=== PATIENT | male | born 1970 | race Caucasian/White ===

== ENCOUNTER 2020-01-23 14:32 | Inpatient (IN) | payer MEDICARE, MEDICAID ==
[~2020-01-23] VITALS: Ht 167.6 cm; Wt 68.9 kg
[2020-01-23] MEDS ORDERED: Lidocaine 1% Plain 30 ml INJ STA (14:44)
[2020-01-23] MEDS ORDERED: Heparin1,000 units/500ml Premix(Conc:2 units/ml) IV STA (14:44)
--- NOTE | 2020-01-23 14:51 | Emergency Room Report ---
History of Present Illness General Chief Complaint: General Complaint Source: Patient, EMS Present Illness HPI Patient was sent in to have a PICC line inserted. He states this is for antibiotics (although he is uncertain which or what is being treated). Review of records reveal that he has had bacteremia. Due to the skipped dialysis and h /o anemia, these labs will be checked. Also a CXR, R forearm and R hip and pelvis xrays will be performed. Percocet is given for pain. EKG without injury or peaked T waves. CXR, Vas cath, whithout pulmonary edema. Pelvic fx, hip hardware (discussed with radiologist). Wrist swelling with questionable healed/healing fx. Labs with hyperkalemia. Critical anemia ( though slightly higher than most recent value at [facility]). PICC line inserted with discussions with radiologist. Patient treated for hyperkalemia. Blood ordered. Transfusion begun after informed consent. Tolerated well. Patient improved but complicated and needing dialysis and orthopedic evaluation and possible repeat transfusions. 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: No Patient History Past Medical History: see triage record, old chart reviewed Past Surgical History: other - Vas-Cath right chest, R hip fx Social History: Reports: smoking Social History Narrative assisted facility Reviewed Nursing Documentation: PMH: Agreed; PSxH: Agreed Nursing Documentation-PMH Past Medical History: No History, Except For Hx Hypertension: Yes - DISPLACED ULNA FRACTURE Review of Systems All Other Systems: negative except mentioned in HPI Physical Exam Vital Signs Date Time Temp Pulse Resp B/P (MAP) Pulse Ox O2 Delivery O2 Flow Rate FiO2 01/23/20 14:37 98.2 84 16 120/71 (87) 93 Room Air Sp02 EP Interpretation: reviewed, abnormal General Appearance: no apparent distress, alert, non-toxic, thin, Chronically Ill Head: normocephalic Eyes: bilateral eye normal inspection, bilateral eye PERRL, bilateral eye EOMI ENT: moist mucus membranes Neck: full range of motion, supple Respiratory: chest non-tender, lungs clear Cardiovascular #1: regular rate, rhythm Cardiovascular #2: 2+ radial (R) Gastrointestinal: normal inspection, normal bowel sounds, non tender, scaphoid Genitourinary: no CVA tenderness Musculoskeletal: swelling, tenderness - R hip and pelvis area, other - L olecronon bursitis, no erythema Neurologic: alert, grossly normal Psychiatric: mood/affect normal Skin: warm/dry, other - excoriations forearms and upper back Procedures Critical Care Time Critical Care Time Total Critical Care Time: 60 min bedside evaluation and treatment excludes procedures (EKG). Reason for critical care: hyperkalemia, IV access, critical anemia, pelvic fx Possible complications: hypotension, hypertension, OK, shock, arrhythmias, metabolic acidosis, end organ damage, respiratory failure. Interventions: treatment of hyperkalemia, blood transfusion, discussions with radiologist Course: Patient presented for PICC line insertion. Missed dialysis. Also evaluation of recent fractures. Analgesia. [place] for PICC and blood draws with patient - finally agreed. Hyperkalemia treated. Discussion with RT. Discussion with blood bank and informed consent obtained with patient. Repeat evaluations during blood transfusion. Multiple discussions with radiologist regarding PICC and pelvic fx. Discussed with admitting MD Consultations: nursing staff, EMS, radiologist, blood bank, RT, admitting MD, review of records and labs Performed by: Dr. Marinelli Tolerated well condition = serious Medical Decision Making Diagnostic Impression: Primary Impression: Hyperkalemia Additional Impressions: Anemia Qualified Codes: D64.9 - Anemia, unspecified ESRD (end stage renal disease) on dialysis Fracture, pelvis closed Qualified Codes: S32.89XK - Fracture of other parts of pelvis, subsequent encounter for fracture with nonunion Schizophrenia Qualified Codes: F20.9 - Schizophrenia, unspecified Wrist fracture, right Qualified Codes: S62.101D - Fracture of unspecified carpal bone, right wrist, subsequent encounter for fracture with routine healing H/O bacteremia ER Course Patient sent for PICC line insertion. As he is not had dialysis for 3 days EKG and labs will be obtained. Also he is requesting x-rays of his forearm and of his hip and something for pain. K elevated and treated. H/H slightly better than at [facility]. Still low and transfusion ordered. Laboratory Tests Test 01/23/20 17:21 White Blood Count 8.6 K/UL (4.8-10.8) Red Blood Count 2.21 M/UL (4.70-6.10) L Hemoglobin 6.8 G/DL (14.2-18.0) *L Hematocrit 21.3 % (42.0-52.0) L Mean Corpuscular Volume 96 FL (80-99) Mean Corpuscular Hemoglobin 31.0 PG (27.0-31.0) Mean Corpuscular Hemoglobin Concent 32.2 G/DL (32.0-36.0) Red Cell Distribution Width 17.7 % (11.6-14.8) H Platelet Count 251 K/UL (150-450) Mean Platelet Volume 5.4 FL (6.5-10.1) L Neutrophils (%) (Auto) % (45.0-75.0) Lymphocytes (%) (Auto) % (20.0-45.0) Monocytes (%) (Auto) % (1.0-10.0) Eosinophils (%) (Auto) % (0.0-3.0) Basophils (%) (Auto) % (0.0-2.0) Differential Total Cells Counted 100 Neutrophils % (Manual) 74 % (45-75) Lymphocytes % (Manual) 17 % (20-45) L Monocytes % (Manual) 2 % (1-10) Eosinophils % (Manual) 6 % (0-3) H Basophils % (Manual) 1 % (0-2) Band Neutrophils 0 % (0-8) Nucleated Red Blood Cells 1 /100 WBC Platelet Estimate Adequate Platelet Morphology Normal Polychromasia 1+ Anisocytosis 1+ Macrocytosis 1+ Sodium Level 141 MMOL/L (136-145) Potassium Level 6.0 MMOL/L (3.5-5.1) *H Chloride Level 108 MMOL/L (98-107) H Carbon Dioxide Level 17 MMOL/L (21-32) L Anion Gap 16 mmol/L (5-15) H Blood Urea Nitrogen 105 mg/dL (7-18) H Creatinine 7.7 MG/DL (0.55-1.30) H Estimated Glomerular Filtration Rate 7.5 mL/min (>60) Glucose Level 96 MG/DL (74-106) Calcium Level 7.3 MG/DL (8.5-10.1) L Total Bilirubin 0.3 MG/DL (0.2-1.0) Aspartate Amino Transferase (AST) 14 U/L (15-37) L Alanine Aminotransferase (ALT) 11 U/L (12-78) L Alkaline Phosphatase 267 U/L (46-116) H Total Protein 7.3 G/DL (6.4-8.2) Albumin 1.6 G/DL (3.4-5.0) L Globulin 5.7 g/dL Albumin/Globulin Ratio 0.3 (1.0-2.7) L EKG Diagnostic Results Rate: normal Rhythm: NSR ST Segments: no acute changes Rhythm Strip Diag. Results EP Interpretation: yes Rhythm: NSR, no PVC's, no ectopy Chest X-Ray Diagnostic Results Chest X-Ray Diagnostic Results : Chest X-Ray Ordered: Yes # of Views/Limited/Complete: 1 View Indication: Other EP Interpretation: Yes Interpretation: no effusion, no pneumothorax, other - pulm HTN no pulmonary edema, Vas cath Impression: Other Electronically Signed by: Electronically signed by Jasmeet Marinelli MD Other X-Ray Diagnostic Results Other X-Ray Diagnostic Results #1: X-Ray ordered: R forearm # of Views/Limited Vs Complete: 2 View Indication: Swelling EP Interpretation: Yes Interpretation: no dislocation, other - STS and old fx Impression: Other Electronically Signed by: Electronically signed by Jasmeet Marinelli MD Other X-Ray Diagnostic Results #2: X-Ray ordered: R hip and pelvis # of Views/Limited Vs Complete: 3 View Indication: Pain EP Interpretation: Yes Interpretation: no soft tissue swelling, other Impression: Other Electronically Signed by: Electronically signed by Jasmeet Marinelli MD Last Vital Signs Date Time Temp Pulse Resp B/P (MAP) Pulse Ox O2 Delivery O2 Flow Rate FiO2 01/24/20 00:00 98.7 95 17 163/78 (106) 96 01/23/20 22:12 Room Air 01/23/20 21:20 21 Status: improved Disposition: ADMITTED INPATIENT Condition: Serious Jasmeet Marinelli MD Jan 23, 2020 14:51
[2020-01-23] MEDS ORDERED: oxyCODONE HCL/Acetaminophen 5/325mg ORAL ONE (15:00)
[2020-01-23] MEDS ORDERED: ACETAMINOPHEN325 M1 ORAL (15:23)
[2020-01-23] MEDS ORDERED: MOM30 ML ORAL (15:23)
[2020-01-23] MEDS ORDERED: DULCOLAX10 MG RC (15:23)
[2020-01-23] MEDS ORDERED: COLACE100 MG/10 ORAL (15:23)
[2020-01-23] MEDS ORDERED: FERROUS SULFAT325 M2 ORAL (15:23)
[2020-01-23] MEDS ORDERED: DIPHENHYDRAMINE25 M1 ORAL (15:23)
[2020-01-23] MEDS ORDERED: RENVELA800 MG ORAL (15:23)
[2020-01-23] MEDS ORDERED: SEROQUEL50 MG ORAL (15:23)
[2020-01-23] MEDS ORDERED: AMLODIPINE BESY10 MG ORAL (15:23)
[2020-01-23] MEDS ORDERED: METOPROLOL TAR100 M1 ORAL (15:23)
[2020-01-23] MEDS ORDERED: NEOSPORIN OINT30 GM TOPIC (15:23)
[2020-01-23] MEDS ORDERED: TRAMADOL HCL100 M2 ORAL (15:23)
[2020-01-23] MEDS ORDERED: OYSTER SHELL C1 EA13 PO (15:23)
[2020-01-23] MEDS ORDERED: ZINC50 M2 ORAL (15:23)
[2020-01-23] MEDS ORDERED: ARANESP100 MCG/0. SUBQ (15:23)
[2020-01-23] MEDS ORDERED: FUROSEMIDE40 MG/5 ML ORAL (15:23)
[2020-01-23 15:24] VITALS: BP 116/81
[2020-01-23] MEDS ORDERED: Lidocaine 1% Plain 30 ml INJ PRN (15:24)
[2020-01-23] MEDS ORDERED: Heparin1,000 units/500ml Premix(Conc:2 units/ml) IV PRN (15:24)
--- NOTE | 2020-01-23 17:02 | Brief Operative Note ---
Immediate Post Operative Note Operative Note Pre-op Diagnosis: needs IV abx Procedure: PICC (midline) R arm Post-op Diagnosis: same as pre-op Surgeon: Abbi Isaac Anesthesia: local Specimen: none Complications: none Condition: stable Fluids: none Implant(s) used?: No Jovan Isaac MD Jan 23, 2020 17:02
--- NOTE | 2020-01-23 17:02 | Pre-Procedure Note/Attestation ---
Pre-Procedure Note/Attestation Complete Prior to Procedure Planned Procedure: not applicable Procedure Narrative: PICC Indications for Procedure Pre-Operative Diagnosis: needs IV abx Attestation I attest that I discussed the nature of the procedure; its benefits; risks and complications; and alternatives (and the risks and benefits of such alternatives ), prior to the procedure, with the patient (or the patient's legal tax compliance representative). I attest that, if there was a reasonable possibility of needing a blood transfusion, the patient (or the patient's legal tax compliance representative) was given the [facility] standardized written summary, pursuant to the [place] Blood Safety Act ([place] Health and Safety Code # 1645, as amended). I attest that I re-evaluated the patient just prior to the surgery and that there has been no change in the patient's H&P, except as documented below: Jovan Eastman MD Jan 23, 2020 17:02
[2020-01-23 17:29] LABS: HEMATOCRIT 21.3 % (42.0-52.0); MEAN CORPUSCULAR VOLUME 96 FL (80-99); PLATELET COUNT 251 K/UL (150-450); RED BLOOD COUNT 2.21 M/UL (4.70-6.10); RED CELL DISTRIBUTION WIDTH 17.7 % (11.6-14.8); WHITE BLOOD COUNT 8.6 K/UL (4.8-10.8)
[2020-01-23 17:31] LABS: HEMOGLOBIN 6.8 G/DL (14.2-18.0)
[2020-01-23 17:43] LABS: ALANINE AMINOTRANSFERASE 11 U/L (12-78); ALBUMIN 1.6 G/DL (3.4-5.0); ALBUMIN/GLOBULIN RATIO 0.3 (1.0-2.7); ALKALINE PHOSPHATASE 267 U/L (46-116); ANION GAP 16 mmol/L (5-15); ASPARTATE AMINO TRANSFERASE 14 U/L (15-37); BILIRUBIN,TOTAL 0.3 MG/DL (0.2-1.0); BLOOD UREA NITROGEN 105 mg/dL (7-18); CALCIUM 7.3 MG/DL (8.5-10.1); CARBON DIOXIDE 17 MMOL/L (21-32); CHLORIDE 108 MMOL/L (98-107); CREATININE 7.7 MG/DL (0.55-1.30); SODIUM 141 MMOL/L (136-145)
[2020-01-23] MEDS ORDERED: Calcium Gluconate 1gm/10ml vial IVP ONE (18:00)
[2020-01-23] MEDS ORDERED: Sodium Bicarbonate 50ml Carp IV ONE (18:00)
[2020-01-23] MEDS ORDERED: Albuterol ud Inhalation HHN ONE (18:00)
[2020-01-23] MEDS ORDERED: Insulin Human Regular 100units/ml 3ml IV ONE (18:00)
[2020-01-23] MEDS ORDERED: Sodium Polystyrene Sulfonate 15gm Powder ORAL ONE (18:00)
--- NOTE | 2020-01-23 18:09 | Diagnostic Imaging Report ---
Indication: Trauma, pain Technique: 2 views of the right hip and one view of the pelvis Comparison: none Findings: There is a fracture of the right inferior and superior pubic ramus. This is displaced by over one bone width. There is also a fracture of the medial left pubic bone extending into the superior pubic ramus. There is a fracture deformity of the left inferior pubic ramus. There is considerable proliferative change, particularly about the left-sided pubic fractures and right inferior ramus fracture, so there may be a chronic component. Hardware is seen within the right femur. No definite hip fracture demonstrated. There are degenerative changes of the right hip joint. There are degenerative changes of the sacroiliac joints. Impression: Positive for bilateral pubic fracture, as described. Fracture lines appear acute and displaced, but presence of proliferative change may indicate a chronic component. Correlate with clinical history Right hip hardware noted. Findings discussed by phone with Dr. Marinelli at the time of interpretation
--- NOTE | 2020-01-23 18:11 | Diagnostic Imaging Report ---
Indications: Trauma, pain Technique: Two views of the right forearm Comparison: None Findings: No definite radial or ulnar fracture demonstrated. On the lateral view, there is questionably irregularity of the posterior proximal and distal carpal rows, although a definitive fracture is not identified. There appears to be some dorsal carpal soft tissue swelling. There is degenerative change of the intercarpal joint. Impression: No definite forearm fracture demonstrated. Cannot exclude carpal fracture. Consider dedicated wrist radiographs to better characterize Degenerative changes of the intercarpal joint. Findings discussed by phone with Dr. Marinelli at the time of interpretation
--- NOTE | 2020-01-23 18:29 | Diagnostic Imaging Report ---
Indications: Needs long-term IV access Technique: Case discussed preoperatively with Dr. Theo Powers, who indicated preference to proceed despite patient being dialysis dependent. Informed consent obtained prior to commencement of the procedure. Risks, including limited to hemorrhage, infection, venous injury discussed with the patient, questions answered and indicated his willingness to proceed. Ultrasound confirms patent compressible right brachial vein. Total sterile technique, including sterile probe cover and sterile gel, hat, mask, sterile gown, large sterile drape, and preparation with 2% chlorhexidine utilized. Local anesthesia with 1% lidocaine. Under real-time ultrasound guidance, puncture right great vein using 21-gauge needle, documented and archived, passage 0.018 guidewire under direct fluoroscopy, which with not pass through the right innominate vein, presumably due to the presence of a dialysis catheter. Placement of 4 [place] peel-away sheath. A MeinProspektpe catheter was used in attempt to manipulate a guidewire through the innominate vein. This was unsuccessful. It was elected to therefore placed a midline. 4 [place] Bard dual-lumen power PICC cut to 20 cm. It was inserted through the peel-away sheath. Peel-away sheath and guidewire removed. Catheter fixed to the skin. Both catheter ports aspirated and flushed. Patient tolerated procedure well, without immediate complication. Digital radiograph documents satisfactory catheter tip position, at the cavoatrial junction. Total fluoroscopy time 73.2 seconds. Total dose area product [id number] Total number of images: 1 Impression: Attempted placement of placement of right arm PICC under sonographic and fluoroscopic guidance, as described above. Note inability to pass a guidewire centrally. Therefore, catheter was cut short and is suitable for use as a midline
[2020-01-23 19:05] VITALS: BP 137/88
[2020-01-23] MEDS: Dyna-Hex 2% Top Sol 2oz TOPIC SCH (20:00)
[2020-01-23 20:50] VITALS: BP 153/71
[2020-01-23 21:05] VITALS: BP 141/69
[2020-01-23] MEDS ORDERED: traMADol 50mg tab ORAL PRN (22:30)
[2020-01-23] MEDS ORDERED: Milk of Magnesia 30ml Ud ORAL PRN (22:30)
[2020-01-23] MEDS ORDERED: Neosporin Oint 15gm TOPIC PRN (22:30)
[2020-01-23] MEDS ORDERED: Morphine Sulfate 2mg/ml Inj(IV/IM USE ONLY) IVP PRN (22:30)
[2020-01-24] VITALS: BP 163/78
[2020-01-24 04:00] VITALS: BP 170/70
[2020-01-24] MEDS: Morphine Sulfate 2mg/ml Inj(IV/IM USE ONLY) IVP PRN ×5 (04:39→21:59)
[2020-01-24 07:07] LABS: HEMATOCRIT 22.7 % (42.0-52.0); HEMOGLOBIN 7.2 G/DL (14.2-18.0); MEAN CORPUSCULAR VOLUME 96 FL (80-99); PLATELET COUNT 239 K/UL (150-450); RED BLOOD COUNT 2.35 M/UL (4.70-6.10); RED CELL DISTRIBUTION WIDTH 16.9 % (11.6-14.8); WHITE BLOOD COUNT 9.1 K/UL (4.8-10.8)
[2020-01-24 07:19] LABS: ANION GAP 18 mmol/L (5-15); BLOOD UREA NITROGEN 113 mg/dL (7-18); CALCIUM 7.2 MG/DL (8.5-10.1); CARBON DIOXIDE 16 MMOL/L (21-32); CHLORIDE 109 MMOL/L (98-107); CREATININE 8.3 MG/DL (0.55-1.30); SODIUM 143 MMOL/L (136-145)
[2020-01-24 07:21] LABS: POTASSIUM 6.4 MMOL/L (3.5-5.1)
[2020-01-24 08:00] VITALS: BP 165/80
[2020-01-24] MEDS: Zinc Sulfate 220mg ORAL SCH (09:00)
[2020-01-24] MEDS ORDERED: Docusate 100mg cap ORAL SCH (09:00)
[2020-01-24] MEDS ORDERED: Furosemide 80mg tab ORAL SCH (09:00)
[2020-01-24] MEDS: Metoprolol Tartrate 100mg tab ORAL SCH ×2 (09:00→21:10)
[2020-01-24 09:21] LABS: ALANINE AMINOTRANSFERASE 13 U/L (12-78); ALBUMIN 1.8 G/DL (3.4-5.0); ALKALINE PHOSPHATASE 278 U/L (46-116); ASPARTATE AMINO TRANSFERASE 17 U/L (15-37); BILIRUBIN,DIRECT 0.1 MG/DL (0.0-0.3); BILIRUBIN,TOTAL 0.3 MG/DL (0.2-1.0); PHOSPHORUS 9.6 MG/DL (2.5-4.9)
[2020-01-24] MEDS ORDERED: Sodium Polystyrene Sulfonate 15gm Powder ORAL SCH (11:15)
[2020-01-24] MEDS: Docusate 100mg cap ORAL SCH ×2 (11:26→17:23)
[2020-01-24 12:00] VITALS: BP 160/59
[2020-01-24] MEDS ORDERED: LORazepam 1mg tab ORAL PRN (14:23)
--- NOTE | 2020-01-24 14:23 | Consultation ---
Consult Note Consult Note I am asked to evaluate the patient at the request of Dr. Theo Powers for dialysis management and hyperkalemia. Patient seen in room 204. Patient is a poor historian. Patient presented with severe anemia. Emergency room note: Patient was sent in to have a PICC line inserted. He states this is for antibiotics (although he is uncertain which or what is being treated). Review of records reveal that he has had bacteremia. Due to the skipped dialysis and h /o anemia, these labs will be checked. Also a CXR, R forearm and R hip and pelvis xrays will be performed. Percocet is given for pain. EKG without injury or peaked T waves. CXR, Vas cath, whithout pulmonary edema. Pelvic fx, hip hardware (discussed with radiologist). Wrist swelling with questionable healed/healing fx. Labs with hyperkalemia. Critical anemia ( though slightly higher than most recent value at [facility]). PICC line inserted with discussions with radiologist. Patient treated for hyperkalemia. Blood ordered. Transfusion begun after informed consent. Tolerated well. Patient improved but complicated and needing dialysis and orthopedic evaluation and possible repeat transfusions. 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 Past Medical History: see triage record, old chart reviewed Past Surgical History: other - Vas-Cath right chest, R hip fx Social History: Reports: smoking Social History Narrative assisted facility Reviewed Nursing Documentation: PMH: Agreed; PSxH: Agreed DISPLACED ULNA FRACTURE Hypertension Patient interviewed poor historian Patient examined Vital Signs Date Time Temp Pulse Resp B/P (MAP) Pulse Ox O2 Delivery O2 Flow Rate FiO2 01/23/20 14:37 98.2 84 16 120/71 (87) 93 Room Air Sp02 EP Interpretation: reviewed, abnormal General Appearance: no apparent distress, alert, non-toxic, thin, Chronically Ill Head: normocephalic Eyes: bilateral eye normal inspection, bilateral eye PERRL, bilateral eye EOMI ENT: moist mucus membranes Neck: full range of motion, supple Respiratory: chest non-tender, lungs clear Cardiovascular #1: regular rate, rhythm Gastrointestinal: normal inspection, normal bowel sounds, non tender, scaphoid Genitourinary: no CVA tenderness Musculoskeletal: swelling, tenderness - R hip and pelvis area, other - L olecronon bursitis, no erythema Neurologic: alert, grossly normal Skin: warm/dry, other - excoriations forearms and upper back . Assessment/Plan End-stage renal disease on hemodialysis via chest permacath, patient missed dialysis Presents with severe anemia and hyperkalemia Status post transfusion for anemia Status post insertion of a PICC line History of hypertension History of psych disease Hemodialysis as soon as possible for hyperkalemia Adjust blood pressure medications Plus binders Continue to monitor her hemoglobin hematocrit and blood pressure Per orders Viktor Kang MD Jan 24, 2020 14:22
--- NOTE | 2020-01-24 14:36 | Consultation ---
History of Present Illness General Date patient seen: Jan 24, 2020 Chief Complaint: General Complaint Present Illness HPI 49 y/o M with hx of schizophrenia, ESRD on HD, HTN, smoker, pelvic fracture s/p hip hardware placement, anemia is sent from [place] to ED on 01/23/20 for placement of PICC line. Apparently patient needs IV antibiotics for an infection which his not clear at this point. Summary sheet of [facility] says bacteremia but not much more info is provided. Upon admission was noted to have hyperkalemia and severe anemia. Allergies: Coded Allergies: No Known Allergies (Unverified , 01/23/20) Medication History Scheduled Acetaminophen* (Acetaminophen 325MG Tablet*), 325 MG ORAL Q6HR, (Reported) Amlodipine Besylate* (Amlodipine Besylate*), 10 MG ORAL DAILY, (Reported) Darbepoetin Pineda in Polysorbat (Aranesp), 100 MCG SUBQ ONCE A WEEK, (Reported) Docusate Sodium (Docusate Sodium), 100 MG ORAL DAILY, (Reported) Furosemide (Furosemide), 80 MG ORAL DAILY, (Reported) Magnesium Hydroxide (Milk of Magnesia), 30 ML ORAL DAILY, (Reported) Metoprolol Tartrate* (Metoprolol Tartrate*), 100 MG ORAL EVERY 12 HOURS, ( Reported) Neomycin/Polymyxin/Bacitracin* (Triple Antibiotic Ointment*), 30 GM TOPIC DAILY, (Reported) Quetiapine Fumarate (Seroquel), 100 MG ORAL DAILY, (Reported) Sevelamer Carbonate (Renvela), 800 MG ORAL THREE TIMES A DAY, (Reported) Tramadol Hcl (Tramadol Hcl), 50 MG ORAL DAILY, (Reported) Scheduled PRN Diphenhydramine Hcl* (Diphenhydramine Hcl*), 50 MG ORAL Q6H PRN for Itching, ( Reported) Miscellaneous Medications Bisacodyl (Dulcolax), 10 MG RC, (Reported) Calcium Carbonate/Vitamin D3 (Oyster Shell Calcium +D Tablet), 1 EACH PO, ( Reported) Ferrous Sulfate (Ferrous Sulfate), 325 MG ORAL, (Reported) Zinc Amino Acid Chelate (Zinc), 50 MG ORAL, (Reported) Patient History Healthcare decision maker N Resuscitation status Advanced Directive on File Patient History Narrative Pmhx: as above Shx: Reports: smoking Fhx: non contributory Review of Systems All Other Systems: negative except mentioned in HPI Physical Exam Physical Exam Narrative General Appearance: no apparent distress, alert, non-toxic, thin, Chronically Ill Head: normocephalic Eyes: bilateral eye normal inspection, bilateral eye PERRL, bilateral eye EOMI ENT: moist mucus membranes Neck: full range of motion, supple Respiratory: chest non-tender, lungs clear Cardiovascular #1: regular rate, rhythm Cardiovascular #2: 2+ radial (R) Gastrointestinal: normal inspection, normal bowel sounds, non tender, scaphoid Genitourinary: no CVA tenderness Musculoskeletal: swelling, tenderness - R hip and pelvis area, other - L olecronon bursitis, no erythema Neurologic: alert, grossly normal Psychiatric: mood/affect normal Skin: warm/dry, other - excoriations forearms and upper back Last 24 Hour Vital Signs Date Time Temp Pulse Resp B/P (MAP) Pulse Ox O2 Delivery O2 Flow Rate FiO2 01/24/20 13:22 160/59 01/24/20 12:00 84 01/24/20 12:00 98.6 84 18 160/59 (92) 97 01/24/20 09:06 165/80 01/24/20 09:00 Room Air 01/24/20 09:00 83 165/80 01/24/20 09:00 Room Air 01/24/20 08:00 96.8 96 20 165/80 (108) 98 01/24/20 08:00 96 01/24/20 05:09 98.7 01/24/20 04:00 98.1 93 22 170/70 (103) 96 01/24/20 04:00 92 01/24/20 00:00 98.7 95 17 163/78 (106) 96 01/24/20 00:00 92 01/23/20 22:12 Room Air 01/23/20 22:12 94 01/23/20 21:20 98.6 82 18 141/69 100 Room Air 21 01/23/20 21:05 98.6 96 18 01/23/20 21:05 98.6 96 18 141/69 100 Room Air 21 01/23/20 20:50 98.2 96 20 153/71 99 Room Air 21 01/23/20 20:50 98.2 96 20 01/23/20 19:10 76 18 100 Room Air 21 72 18 98 01/23/20 19:05 98.4 82 20 137/88 98 Room Air 01/23/20 15:42 98.2 01/23/20 15:26 86 22 Room Air 01/23/20 15:24 98.2 86 22 116/81 98 Room Air 01/23/20 14:37 98.2 84 16 120/71 (87) 93 Room Air Intake and Output 01/23/20 01/24/20 19:00 07:00 Output Total 900 ml Balance -900 ml Output Urine Total 900 ml Laboratory Tests Test 01/23/20 17:21 01/24/20 05:55 01/24/20 05:57 White Blood Count 8.6 K/UL (4.8-10.8) 9.1 K/UL (4.8-10.8) Red Blood Count 2.21 M/UL (4.70-6.10) L 2.35 M/UL (4.70-6.10) L Hemoglobin 6.8 G/DL (14.2-18.0) *L 7.2 G/DL (14.2-18.0) L Hematocrit 21.3 % (42.0-52.0) L 22.7 % (42.0-52.0) L Mean Corpuscular Volume 96 FL (80-99) 96 FL (80-99) Mean Corpuscular Hemoglobin 31.0 PG (27.0-31.0) 30.5 PG (27.0-31.0) Mean Corpuscular Hemoglobin Concent 32.2 G/DL (32.0-36.0) 31.6 G/DL (32.0-36.0) L Red Cell Distribution Width 17.7 % (11.6-14.8) H 16.9 % (11.6-14.8) H Platelet Count 251 K/UL (150-450) 239 K/UL (150-450) Mean Platelet Volume 5.4 FL (6.5-10.1) L 5.5 FL (6.5-10.1) L Neutrophils (%) (Auto) % (45.0-75.0) % (45.0-75.0) Lymphocytes (%) (Auto) % (20.0-45.0) % (20.0-45.0) Monocytes (%) (Auto) % (1.0-10.0) % (1.0-10.0) Eosinophils (%) (Auto) % (0.0-3.0) % (0.0-3.0) Basophils (%) (Auto) % (0.0-2.0) % (0.0-2.0) Differential Total Cells Counted 100 100 Neutrophils % (Manual) 74 % (45-75) 81 % (45-75) H Lymphocytes % (Manual) 17 % (20-45) L 13 % (20-45) L Monocytes % (Manual) 2 % (1-10) 5 % (1-10) Eosinophils % (Manual) 6 % (0-3) H 1 % (0-3) Basophils % (Manual) 1 % (0-2) 0 % (0-2) Band Neutrophils 0 % (0-8) 0 % (0-8) Nucleated Red Blood Cells 1 /100 WBC Platelet Estimate Adequate Adequate Platelet Morphology Normal Normal Polychromasia 1+ Anisocytosis 1+ 1+ Macrocytosis 1+ Sodium Level 141 MMOL/L (136-145) 143 MMOL/L (136-145) Potassium Level 6.0 MMOL/L (3.5-5.1) *H 6.4 MMOL/L (3.5-5.1) *H Chloride Level 108 MMOL/L (98-107) H 109 MMOL/L (98-107) H Carbon Dioxide Level 17 MMOL/L (21-32) L 16 MMOL/L (21-32) L Anion Gap 16 mmol/L (5-15) H 18 mmol/L (5-15) H Blood Urea Nitrogen 105 mg/dL (7-18) H 113 mg/dL (7-18) H Creatinine 7.7 MG/DL (0.55-1.30) H 8.3 MG/DL (0.55-1.30) H Estimat Glomerular Filtration Rate 7.5 mL/min (>60) 6.9 mL/min (>60) Glucose Level 96 MG/DL (74-106) 106 MG/DL (74-106) Calcium Level 7.3 MG/DL (8.5-10.1) L 7.2 MG/DL (8.5-10.1) L Total Bilirubin 0.3 MG/DL (0.2-1.0) 0.3 MG/DL (0.2-1.0) Aspartate Amino Transf (AST/SGOT) 14 U/L (15-37) L 17 U/L (15-37) Alanine Aminotransferase (ALT/SGPT) 11 U/L (12-78) L 13 U/L (12-78) Alkaline Phosphatase 267 U/L (46-116) H 278 U/L (46-116) H Total Protein 7.3 G/DL (6.4-8.2) 6.8 G/DL (6.4-8.2) Albumin 1.6 G/DL (3.4-5.0) L 1.8 G/DL (3.4-5.0) L Globulin 5.7 g/dL Albumin/Globulin Ratio 0.3 (1.0-2.7) L Hepatitis B Surface Antigen Pending Hypochromasia 1+ Uric Acid 6.6 MG/DL (2.6-7.2) Phosphorus Level 9.6 MG/DL (2.5-4.9) H Magnesium Level 1.8 MG/DL (1.8-2.4) Direct Bilirubin 0.1 MG/DL (0.0-0.3) Troponin I 0.012 ng/mL (0.000-0.056) Height (Feet): 5 Height (Inches): 6.00 Weight (Pounds): 130 Medications Current Medications Medications (Trade) Dose Ordered Sig/Michelle Route PRN Reason Start Time Stop Time Status Last Admin Dose Admin Chlorhexidine Gluconate (Karley-Hex 2%) 1 applic DAILY@1999 TOPIC 01/23/20 20:00 04/22/20 19:59 Clonidine HCl (Catapres Tab) 0.1 mg Q8HR ORAL 01/24/20 09:00 04/23/20 08:59 01/24/20 13:22 Docusate Sodium (Colace) 100 mg TIAC ORAL 01/24/20 11:30 02/23/20 08:59 01/24/20 11:26 Ferrous Sulfate (Feosol) 325 mg THREE TIMES A DAY ORAL 01/24/20 09:00 04/23/20 08:59 01/24/20 13:22 Furosemide (Lasix) 80 mg EVERY 12 HOURS ORAL 01/24/20 09:00 02/23/20 08:59 01/24/20 09:00 Hydralazine HCl (Apresoline) 10 mg Q4H PRN IV for bp over 165 syst 01/24/20 09:00 04/23/20 08:59 Magnesium Hydroxide (Mom) 30 ml HSPRN PRN ORAL Constipation 01/23/20 22:30 02/22/20 22:29 Metoprolol Tartrate (Lopressor) 100 mg EVERY 12 HOURS ORAL 01/24/20 09:00 04/23/20 08:59 01/24/20 09:00 Morphine Sulfate (Morphine Sulfate) 2 mg Q4H PRN IVP For Pain -01/24/20 00:25 01/30/20 00:24 01/24/20 13:23 Neomycin/ Polymyxin/ Bacitracin (Neomycin/Polymy/ Bacitr Oint) 1 applic TID PRN TOPIC for skin infection 01/23/20 22:30 04/22/20 22:29 Pantoprazole (Protonix) 40 mg EVERY 12 HOURS ORAL 01/24/20 09:00 02/23/20 08:59 01/24/20 09:06 Quetiapine Fumarate (SEROqueL) 100 mg TID ORAL 01/24/20 09:00 03/09/20 08:59 01/24/20 13:22 Tramadol HCl (Ultram) 50 mg Q6H PRN ORAL moderate to severe pain 01/23/20 22:30 01/30/20 22:29 Zinc Sulfate (Zinc Sulfate) 220 mg DAILY ORAL 01/24/20 09:00 04/23/20 08:59 01/24/20 09:00 Assessment/Plan Assessment/Plan: Abx: None Assessment: Afebrile No leukocytosis Acute on chronic anemia Hyperkalemia ?report of bacteremia- I can't confirm this. at the moment, patient afebrile, no leukocytosis- no signs of infection. will obtain Bcx x2 01/22 failed attempted PICC line placement; Mid line placed instead COVID19 neg on 01/07 at [place]; a repeat test was sent on 01/20 schizophrenia ESRD on HD HTN smoker pelvic fracture s/p hip hardware placement -01/23/20 hip xray: Positive for bilateral pubic fracture, as described. Fracture lines appear acute and displaced, but presence of proliferative change may indicate a chronic component. Correlate with clinical history Plan: -Continue to monitor off abx -f/u cx -Monitor CBC/CMP, temperatures -Bcx x2 -COVID isolation pending COVID result of test done at [place] on 01/20 -renal f/u Thank you for this consultation. Will continue to follow along with you. Discussed with JOSUE. Michelle Morales M.D. Jan 24, 2020 14:36
[2020-01-24 16:00] VITALS: BP 160/79
--- NOTE | 2020-01-24 17:30 | History and Physical Report ---
DATE OF ADMISSION: 01/23/2020 DATE AND TIME SEEN: 01/24/2020, approximate time is 1 p.m. CONSULTANTS: 1. Viktor Kang MD. 2. Dr. Patrick 3. Willi Guerrero MD. CHIEF COMPLAINT: Hyperkalemia, ESRD, and pelvic fracture. BRIEF HISTORY: This is a 49-year-old male, who lives at [facility], presented with above-mentioned diagnoses, was admitted to telemetry. Currently, calm, sleeping in bed, not talking much. REVIEW OF SYSTEMS: Unavailable. PAST MEDICAL HISTORY: Schizophrenia, ESRD, anemia. PAST SURGICAL HISTORY: Unknown. ALLERGIES: Denies. MEDICATIONS: Include docusate sodium, ferrous sulfate, furosemide, metoprolol, zinc, clonidine, hydralazine, pantoprazole, tramadol. SOCIAL HISTORY: Unable to obtain secondary to the patient's condition. PHYSICAL EXAMINATION: VITAL SIGNS: Temperature is 98 degrees, pulse 84, respirations 18, and blood pressure 160/59. GENERAL: Lethargic, sleepy. HEENT: Normocephalic and atraumatic. NECK: Trachea midline. CARDIOVASCULAR: No peripheral edema. LUNGS: Breathing comfortably on room air. ABDOMEN: No apparent wound. EXTREMITIES: Show no cyanosis, clubbing, or edema. NEUROLOGIC: The patient moves all extremities. LABORATORY AND DIAGNOSTIC DATA: Labs at this time shows H and H 7.2/22, otherwise normal. BMP shows potassium 6.4, chloride 109, BUN and creatinine . Calcium 7.3. Alkaline phosphatase 278. ASSESSMENT: 1. Hyperkalemia. 2. ESRD. 3. Pelvic fracture. 4. Anemia. 5. Schizophrenia. PLAN: 1. Dialysis p.r.n. 2. Pain control. 3. Dietary followup. 4. Psych treatment. 5. Transfuse p.r.n. 6. CBC and BMP in the morning. Theo Powers D.O. DR: ELTON JOB#: [id number] CC:
[2020-01-24 20:00] VITALS: BP 157/80
[2020-01-24] MEDS: Dyna-Hex 2% Top Sol 2oz TOPIC SCH (21:10)
[2020-01-24] MEDS: cloNIDine 0.2mg Tab ORAL SCH (21:59)
--- NOTE | 2020-01-24 22:44 | Consultation ---
DATE OF CONSULTATION: 01/24/2020 INITIAL PSYCHIATRIC CONSULTATION HISTORY OF PRESENT ILLNESS: The patient is a 49-year-old male patient with hyperkalemia. This patient came in from [facility]. He was sent because he needed a PICC line inserted and he has bacteremia. He has had a lot of medical problems, but he also has overlying diagnosis of bipolar II versus paranoid schizophrenia, currently on Seroquel 100 mg 3 times a day, and according to his shelter, he has some mood lability and agitation, so I saw and assessed this patient in his room. The patient says, "yes, I have some mood swings and need my Seroquel." That was the patient's chief complaint. He seems to have some mood lability and agitation when I am asking about his psychiatric history, but he is receptive when I try to explain the details of what Seroquel is and why he needs to take it and what it does for him. MEDICAL HISTORY: He has a history of bacteremia, hypokalemia, pelvic fracture, end-stage renal disease, on hemodialysis, and anemia. ALLERGIES: He has no known drug allergies. PSYCHOTROPIC MEDICATIONS ON ADMISSION: According to the documentation, he is on Seroquel 100 mg 3 times a day. FAMILY PSYCHIATRIC HISTORY: He denies. SUBSTANCE ABUSE HISTORY: He is denying use of any drug and alcohol use at this time. PAIN ASSESSMENT: 09/26 pain. DEVELOPMENTAL PROBLEMS: Denied. SOCIAL HISTORY: The patient lives at [facility]. He is financially supported by [employer] and Medicare. He has no known legal problems. Family and relationships are poor. STRENGTHS: He is motivated to get better. He has a place to live. WEAKNESSES: Impulsive. Minimal support system. MENTAL STATUS EXAMINATION: This is a 49-year-old male. His appearance is disheveled. His attitude is irritable and agitated. His affect is labile. His intellect is poor. He knows current events. He knows the last 4 presidents. Mood, depressed and anxious. Motor activity, psychomotor agitation. His attention span is poor because he cannot do serial sevens or spell world backwards. Orientation x2. He is oriented to person and place, not time or situation. Speech is slightly disorganized, but linear. Thought content, he has auditory hallucinations and paranoid delusions. Perception is poor because of perceptual disturbance such as auditory hallucinations and paranoid delusions. Abstract reasoning is poor because he does not understand proverbs and only has concrete thinking. Insight is poor because he does not recognize having a psych disorder. Judgment is poor because he does not accept consequences for his actions. Short-term memory, 3 out of 3 recall after 5-minute delay with good short-term memory. Long-term memory is intact because of his knowledge of long-term events in his life such as high school that he went to. His gait is normal. There is no abnormal movement. There is no history of abuse. There is no current abuse. DIAGNOSES: 1. Paranoid schizophrenia. 2. There is no secondary. 3. Medical includes end-stage renal disease, anemia, status post ulnar fracture. 4. Psychosocial stressors, financial. 5. Functional impairment severe. PLAN: I am going to treat this patient with a medication regimen of Seroquel 100 mg p.o. 3 times a day and then also I am going to treat this patient with a medication regimen of Ativan at a dose of 1 mg every 6 hours p.r.n. anxiety and agitation, provide him with 20 minutes of cognitive behavioral therapy to help him identify his automatic negative thoughts and help him convert his negative thoughts to more positive thoughts to reduce depression, anxiety, and mood lability. Estimated length of stay 3 to 7 days. Prognosis is poor. PRELIMINARY DISCHARGE PLAN: Discharge him to his home once stable. Coordination of care done by social insurance administrator. Chart was reviewed. Discussed with staff. Seen and assessed in his room. Maura Larios M.D. DR: TODD JOB#: [id number] CC:
[2020-01-25] VITALS: BP 159/79
[2020-01-25] MEDS: Morphine Sulfate 2mg/ml Inj(IV/IM USE ONLY) IVP PRN ×5 (01:43→21:59)
[2020-01-25 04:00] VITALS: BP 142/75
[2020-01-25] MEDS: cloNIDine 0.2mg Tab ORAL SCH ×3 (05:42→22:00)
[2020-01-25] MEDS: Docusate 100mg cap ORAL SCH ×3 (05:42→15:45)
[2020-01-25 08:00] VITALS: BP 138/74
--- NOTE | 2020-01-25 08:17 | General Progress Note ---
Assessment/Plan Problem List: (1) Schizophrenia ICD Codes: F20.9 - Schizophrenia, unspecified SNOMED: 75118645 Qualifiers: Qualified Codes: F20.9 - Schizophrenia, unspecified (2) Hyperkalemia ICD Codes: E87.5 - Hyperkalemia; Z99.2 - Dependence on renal dialysis SNOMED: 07703121 (3) Fracture, pelvis closed ICD Codes: S32.9XXA - Fracture of unspecified parts of lumbosacral spine and pelvis, initial encounter for closed fracture SNOMED: 28280830 Qualifiers: Qualified Codes: S32.89XK - Fracture of other parts of pelvis, subsequent encounter for fracture with nonunion (4) ESRD (end stage renal disease) on dialysis ICD Codes: N18.6 - End stage renal disease; Z99.2 - Dependence on renal dialysis SNOMED: 078081936 (5) Anemia ICD Codes: D64.9 - Anemia, unspecified SNOMED: 531307316 Qualifiers: Qualified Codes: D64.9 - Anemia, unspecified Status: unchanged Assessment/Plan: pt diet transfuse and dialysis prn cbc bmp am Subjective Constitutional: Reports: weakness Allergies: Coded Allergies: No Known Allergies (Unverified , 01/23/20) All Systems: reviewed and negative except above Subjective sleepy calm Objective Last 24 Hour Vital Signs Date Time Temp Pulse Resp B/P (MAP) Pulse Ox O2 Delivery O2 Flow Rate FiO2 01/25/20 05:42 159/75 01/25/20 04:00 99.9 83 20 142/75 (97) 96 01/25/20 03:28 84 01/25/20 02:13 100.0 01/25/20 00:00 100.0 89 20 159/79 (105) 95 01/24/20 21:59 157/80 01/24/20 21:10 91 157/80 01/24/20 21:00 Room Air 01/24/20 20:00 94 01/24/20 20:00 98.9 91 18 157/80 (105) 95 01/24/20 16:00 100 01/24/20 16:00 98.7 100 19 160/79 (106) 96 01/24/20 13:22 160/59 01/24/20 12:00 84 01/24/20 12:00 98.6 84 18 160/59 (92) 97 01/24/20 09:06 165/80 01/24/20 09:00 Room Air 01/24/20 09:00 83 165/80 01/24/20 09:00 Room Air Intake and Output 01/24/20 01/25/20 19:00 07:00 Intake Total 1390 ml 460 ml Output Total 2100 ml 600 ml Balance -710 ml -140 ml Intake Oral 1390 ml 460 ml Output Urine Total 1100 ml 600 ml Hemodialysis UF 1000 ml Height (Feet): 5 Height (Inches): 6.00 Weight (Pounds): 147 General Appearance: lethargic EENT: normal ENT inspection Neck: normal alignment Cardiovascular: normal peripheral pulses, normal rate, regular rhythm Respiratory/Chest: chest wall non-tender, lungs clear, normal breath sounds Abdomen: normal bowel sounds, non tender, soft Extremities: normal inspection Edema: no edema noted Arm (L), no edema noted Arm (R), no edema noted Leg (L), no edema noted Leg (R), no edema noted Pedal (L), no edema noted Pedal (R), no edema noted Generalized Neurologic: motor weakness Skin: normal pigmentation, warm/dry Theo Powers DO Jan 25, 2020 08:17
[2020-01-25] MEDS: Zinc Sulfate 220mg ORAL SCH (09:10)
[2020-01-25] MEDS: Metoprolol Tartrate 100mg tab ORAL SCH ×2 (09:11→21:58)
--- NOTE | 2020-01-25 09:30 | Progress Note ---
DATE: 01/25/2020 SUBJECTIVE: This is a 49-year-old male patient. He continues to have some anxiety, depression, and mood lability worsened by stress of his medical illness. This patient came here from [facility]. He still has some mood lability, confusion, decline in cognition below his baseline, and altered mental status. MENTAL STATUS EXAMINATION: This is a 49-year-old male. Appearance is disheveled. Attitude, irritable and agitated. Affect, guarded and restricted. Intellect, poor. Mood, depressed and anxious. Motor activity, psychomotor agitation. Attention span is poor. Orientation x2. Speech is low volume, slurred. Thought process, disorganized and illogical. Insight and judgment is poor. DIAGNOSIS: Paranoid schizophrenia, acute exacerbation. PLAN: Plan for this patient is to treat him with a medication regimen consisting of Seroquel at a dose of 100 mg three times a day. Twenty minutes of cognitive behavioral therapy provided to help him identify his automatic negative thoughts and help him convert negative thoughts to more positive thoughts to reduce depression, anxiety, and mood lability. Chart reviewed. Discussed with staff. Seen and assessed at his bedside. Maura Larios M.D. DR: ADRI JOB#: [id number] CC:
--- NOTE | 2020-01-25 11:13 | Nephrology Progress Note ---
Assessment/Plan Problem List: (1) ESRD (end stage renal disease) on dialysis (2) Anemia (3) Hyperkalemia (4) Hypertensive kidney disease Assessment End-stage renal disease on hemodialysis via chest permacath, patient missed dialysis Presents with severe anemia and hyperkalemia Status post transfusion for anemia Status post insertion of a PICC line History of hypertension History of psych disease Plan January 24: Today's labs pending. Will order dialysis for tomorrow. Blood pressure stable. Hemodialysis for hyperkalemia, was done on January 23. Adjust blood pressure medications Plus binders Continue to monitor her hemoglobin hematocrit and blood pressure Per orders Subjective ROS Limited/Unobtainable: No Constitutional: Reports: malaise Objective Objective Last 24 Hour Vital Signs Date Time Temp Pulse Resp B/P (MAP) Pulse Ox O2 Delivery O2 Flow Rate FiO2 01/25/20 09:12 85 138/74 01/25/20 09:11 85 138/74 01/25/20 09:00 Room Air 01/25/20 08:00 97.0 86 20 138/74 (95) 95 01/25/20 08:00 86 01/25/20 05:42 159/75 01/25/20 04:00 99.9 83 20 142/75 (97) 96 01/25/20 03:28 84 01/25/20 02:13 100.0 01/25/20 00:00 100.0 89 20 159/79 (105) 95 01/24/20 21:59 157/80 01/24/20 21:10 91 157/80 01/24/20 21:00 Room Air 01/24/20 20:00 94 01/24/20 20:00 98.9 91 18 157/80 (105) 95 01/24/20 16:00 100 01/24/20 16:00 98.7 100 19 160/79 (106) 96 01/24/20 13:22 160/59 01/24/20 12:00 84 01/24/20 12:00 98.6 84 18 160/59 (92) 97 Intake and Output 01/24/20 01/25/20 19:00 07:00 Intake Total 1390 ml 460 ml Output Total 2100 ml 600 ml Balance -710 ml -140 ml Intake Oral 1390 ml 460 ml Output Urine Total 1100 ml 600 ml Hemodialysis UF 1000 ml Height (Feet): 5 Height (Inches): 6.00 Weight (Pounds): 146 General Appearance: no apparent distress Objective No change Viktor Kang MD Jan 25, 2020 11:13
[2020-01-25 12:00] VITALS: BP 147/79
--- NOTE | 2020-01-25 12:13 | Diagnostic Imaging Report ---
Indication: Shortness of breath Technique: One view of the chest Comparison: None Findings: There is thickening of the minor fissure as well as some peripheral pleural thickening versus fluid on the right. There are bilateral infiltrates versus edema, right greater than left. The heart size is upper limits normal. Right jugular tunneled dialysis catheter is noted. Impression: Bilateral right greater than left infiltrates versus edema. Right-sided pleural thickening versus fluid Other findings as noted
--- NOTE | 2020-01-25 13:18 | Infectious Diseases Prog Note ---
Assessment/Plan Abx: None Assessment: fever No leukocytosis PRobable PNA- r/o COVID19 -01/23 CXR: Bilateral right greater than left infiltrates versus edema. Right- sided pleural thickening versus fluid Acute on chronic anemia Hyperkalemia ?report of bacteremia- I can't confirm this. at the moment, patient afebrile, no leukocytosis- no signs of infection. will obtain Bcx x2 01/22 failed attempted PICC line placement; Mid line placed instead COVID19 neg on 01/07 at [place]; a repeat test was sent on 01/20 schizophrenia ESRD on HD HTN smoker pelvic fracture s/p hip hardware placement -01/23/20 hip xray: Positive for bilateral pubic fracture, as described. Fracture lines appear acute and displaced, but presence of proliferative change may indicate a chronic component. Correlate with clinical history Plan: -Start empiric CEftrriaxone -f/u cx -Monitor CBC/CMP, temperatures -Bcx x2 -COVID isolation and testing -renal f/u -u/a w/r eflex, sp cx Thank you for this consultation. Will continue to follow along with you. Discussed with RN. Subjective Allergies: Coded Allergies: No Known Allergies (Unverified , 01/23/20) TM 100 no leukocytosis Objective Last 24 Hour Vital Signs Date Time Temp Pulse Resp B/P (MAP) Pulse Ox O2 Delivery O2 Flow Rate FiO2 01/25/20 12:00 77 01/25/20 12:00 98.8 77 18 147/79 (101) 96 01/25/20 09:12 85 138/74 01/25/20 09:11 85 138/74 01/25/20 09:00 Room Air 01/25/20 08:00 97.0 86 20 138/74 (95) 95 01/25/20 08:00 86 01/25/20 05:42 159/75 01/25/20 04:00 99.9 83 20 142/75 (97) 96 01/25/20 03:28 84 01/25/20 02:13 100.0 01/25/20 00:00 100.0 89 20 159/79 (105) 95 01/24/20 21:59 157/80 01/24/20 21:10 91 157/80 01/24/20 21:00 Room Air 01/24/20 20:00 94 01/24/20 20:00 98.9 91 18 157/80 (105) 95 01/24/20 16:00 100 01/24/20 16:00 98.7 100 19 160/79 (106) 96 01/24/20 13:22 160/59 Height (Feet): 5 Height (Inches): 6.00 Weight (Pounds): 146 not examined to limit COVID19 exposure Current Medications Medications (Trade) Dose Ordered Sig/Michelle Route PRN Reason Start Time Stop Time Status Last Admin Dose Admin Amlodipine Besylate (Norvasc) 10 mg DAILY ORAL 01/25/20 09:00 02/24/20 08:59 01/25/20 09:12 Chlorhexidine Gluconate (Karley-Hex 2%) 1 applic DAILY@1999 TOPIC 01/23/20 20:00 04/22/20 19:59 01/24/20 21:10 Clonidine HCl (Catapres tab) 0.2 mg Q8HR ORAL 01/24/20 22:00 04/23/20 08:59 01/25/20 05:42 Docusate Sodium (Colace) 100 mg TIAC ORAL 01/24/20 11:30 02/23/20 08:59 01/25/20 11:20 Ferrous Sulfate (Feosol) 325 mg THREE TIMES A DAY ORAL 01/24/20 09:00 04/23/20 08:59 01/25/20 09:09 Hydralazine HCl (Apresoline) 10 mg Q4H PRN IV for bp over 165 syst 01/24/20 09:00 04/23/20 08:59 Lorazepam (Ativan) 1 mg Q6H PRN ORAL For Anxiety 01/24/20 14:23 01/31/20 14:22 Magnesium Hydroxide (Mom) 30 ml HSPRN PRN ORAL Constipation 01/23/20 22:30 02/22/20 22:29 Metoprolol Tartrate (Lopressor) 100 mg EVERY 12 HOURS ORAL 01/24/20 09:00 04/23/20 08:59 01/25/20 09:11 Morphine Sulfate (Morphine Sulfate) 2 mg Q4H PRN IVP For Pain 6-01/24/20 00:25 01/30/20 00:24 01/25/20 11:20 Neomycin/ Polymyxin/ Bacitracin (Neomycin/Polymy/ Bacitr Oint) 1 applic TID PRN TOPIC for skin infection 01/23/20 22:30 04/22/20 22:29 Pantoprazole (Protonix) 40 mg EVERY 12 HOURS ORAL 01/24/20 09:00 02/23/20 08:59 01/25/20 09:09 Quetiapine Fumarate (SEROqueL) 100 mg TID ORAL 01/24/20 09:00 03/09/20 08:59 01/25/20 09:12 Sevelamer Carbonate (Renvela) 1,600 mg THREE TIMES A DAY ORAL 01/24/20 18:00 04/23/20 17:59 01/25/20 09:10 Tramadol HCl (Ultram) 50 mg Q6H PRN ORAL moderate to severe pain 01/23/20 22:30 01/30/20 22:29 Zinc Sulfate (Zinc Sulfate) 220 mg DAILY ORAL 01/24/20 09:00 04/23/20 08:59 01/25/20 09:10 Michelle Morales M.D. Jan 25, 2020 13:17
[2020-01-25] MEDS: cefTRIAXone 1 GM in D5W 55 ML IVPB SCH (15:44)
[2020-01-25 16:00] VITALS: BP 145/80
[2020-01-25 18:27] LABS: APPEARANCE,URINE SLIGHTLY CLOUDY; BILIRUBIN, URINE NEGATIVE (NEGATIVE); COLOR,URINE PALE YELLOW; GLUCOSE, URINE (UA) 3+ (NEGATIVE); KETONES,URINE NEGATIVE (NEGATIVE); LEUKOCYTE ESTERASE ,URINE NEGATIVE (NEGATIVE); NITRITE,URINE NEGATIVE (NEGATIVE); PH,URINE 8 (4.5-8.0); PROTEIN,URINE 4+ (NEGATIVE); UROBILINOGEN,URINE NORMAL MG/DL (0.0-1.0)
[2020-01-25 20:00] VITALS: BP 144/76
[2020-01-25] MEDS: Dyna-Hex 2% Top Sol 2oz TOPIC SCH (21:58)
[2020-01-26] VITALS: BP 146/71
[2020-01-26] MEDS: Morphine Sulfate 2mg/ml Inj(IV/IM USE ONLY) IVP PRN ×6 (02:19→23:02)
[2020-01-26 04:00] VITALS: BP 149/73
[2020-01-26] MEDS: cloNIDine 0.2mg Tab ORAL SCH ×3 (05:31→21:42)
[2020-01-26] MEDS: Docusate 100mg cap ORAL SCH ×3 (05:31→15:30)
[2020-01-26 08:00] VITALS: BP 134/78
[2020-01-26] MEDS: Metoprolol Tartrate 100mg tab ORAL SCH ×3 (09:00→21:42)
[2020-01-26] MEDS: Zinc Sulfate 220mg ORAL SCH (09:30)
--- NOTE | 2020-01-26 10:21 | Nephrology Progress Note ---
Assessment/Plan Problem List: (1) ESRD (end stage renal disease) on dialysis (2) Anemia (3) Hyperkalemia (4) Hypertensive kidney disease Assessment End-stage renal disease on hemodialysis via chest permacath, patient missed dialysis Presents with severe anemia and hyperkalemia Status post transfusion for anemia Status post insertion of a PICC line History of hypertension History of psych disease Plan January 25: Patient will receive dialysis today. Is only agreeable to draw blood work prior to dialysis from the access line. Further comments after lab results available. January 24: Today's labs pending. Will order dialysis for tomorrow. Blood pressure stable. Hemodialysis for hyperkalemia, was done on January 23. Adjust blood pressure medications Plus binders Continue to monitor her hemoglobin hematocrit and blood pressure Per orders Subjective ROS Limited/Unobtainable: No Constitutional: Reports: malaise Objective Objective Last 24 Hour Vital Signs Date Time Temp Pulse Resp B/P (MAP) Pulse Ox O2 Delivery O2 Flow Rate FiO2 01/26/20 09:00 93 134/78 01/26/20 09:00 93 134/78 01/26/20 08:00 98.1 93 19 134/78 (96) 97 01/26/20 07:43 88 01/26/20 05:31 149/73 01/26/20 04:00 98.3 82 19 149/73 (98) 94 01/26/20 04:00 85 01/26/20 00:00 98.4 82 21 146/71 (96) 94 01/26/20 00:00 88 01/25/20 22:00 144/76 01/25/20 21:58 86 144/76 01/25/20 21:00 Room Air 01/25/20 20:00 86 01/25/20 20:00 98.6 86 20 144/76 (98) 96 01/25/20 16:00 98.8 79 20 145/80 (101) 95 01/25/20 16:00 82 01/25/20 13:25 147/79 01/25/20 12:00 77 01/25/20 12:00 98.8 77 18 147/79 (101) 96 Intake and Output 01/25/20 01/26/20 19:00 07:00 Intake Total 240 ml 100 ml Output Total 600 ml Balance -360 ml 100 ml Intake Oral 240 ml 100 ml Output Urine Total 600 ml Patient refused a blood draw yesterday and today laboratory Tests 01/25/20 17:40: Urine Color Pale yellow, Urine Appearance Slightly cloudy, Urine pH 8, Urine Specific [place] 1.010, Urine Protein 4+H, Urine Glucose (UA) 3+H, Urine Ketones Negative, Urine Blood 1+H, Urine Nitrite Negative, Urine Bilirubin Negative, Urine Urobilinogen Normal, Urine Leukocyte Esterase Negative, Urine RBC 10-15H, Urine WBC 0-2, Urine Squamous Epithelial Cells None, Urine Bacteria Few Height (Feet): 5 Height (Inches): 6.00 Weight (Pounds): 146 General Appearance: no apparent distress, lethargic Cardiovascular: tachycardia Respiratory/Chest: decreased breath sounds Abdomen: soft, distended Objective No change Viktor Kang MD Jan 26, 2020 10:21
--- NOTE | 2020-01-26 10:30 | Progress Note ---
DATE: 01/26/2020 SUBJECTIVE: This is a 49-year-old male patient with hyperkalemia. He continues to have altered mental status, confusion, and decline in cognition below his baseline. He has got a lot of mood lability, agitation, and irritability, so he does require inpatient treatment at this time. He has got overwhelming thoughts of helplessness, hopelessness, low energy, poor appetite, and loss of interest in activity. As for his medical problems, he has wrist fracture, hyperkalemia, end-stage renal disease, on hemodialysis, and anemia that is causing him altered mental status, confusion, and decline in cognition below his baseline. That is why, his attending has requested daily psychiatric consultation. MENTAL STATUS EXAMINATION: This is a 49-year-old male patient whose appearance is disheveled. Attitude, irritable and agitated. Affect is labile. Intellect, poor. Mood, depressed and anxious. Motor activity, psychomotor agitation. Attention span is poor. Orientation x2. Speech is pressured. Thought process, disorganized and illogical. Insight and judgment is poor. DIAGNOSIS: Paranoid schizophrenia, acute exacerbation. PLAN: I am going to treat the patient with a medication regimen consisting of Seroquel 100 mg three times a day. Twenty minutes of cognitive behavioral therapy will help him identify his automatic negative thoughts and help him convert his negative thoughts to more positive thoughts to reduce depression, anxiety, and mood lability. Chart reviewed. Discussed with staff. Seen and assessed at bedside. Maura Larios M.D. DR: ADRI JOB#: [id number] CC:
[2020-01-26 11:13] LABS: HEMATOCRIT 23.8 % (42.0-52.0); HEMOGLOBIN 7.6 G/DL (14.2-18.0); MEAN CORPUSCULAR VOLUME 96 FL (80-99); PLATELET COUNT 207 K/UL (150-450); RED BLOOD COUNT 2.47 M/UL (4.70-6.10); RED CELL DISTRIBUTION WIDTH 16.1 % (11.6-14.8); WHITE BLOOD COUNT 8.1 K/UL (4.8-10.8)
[2020-01-26 11:21] LABS: ANION GAP 11 mmol/L (5-15); BLOOD UREA NITROGEN 79 mg/dL (7-18); CALCIUM 7.7 MG/DL (8.5-10.1); CARBON DIOXIDE 22 MMOL/L (21-32); CHLORIDE 110 MMOL/L (98-107); CREATININE 6.2 MG/DL (0.55-1.30); POTASSIUM 5.6 MMOL/L (3.5-5.1); SODIUM 143 MMOL/L (136-145)
--- NOTE | 2020-01-26 11:56 | General Progress Note ---
Assessment/Plan Problem List: (1) Schizophrenia ICD Codes: F20.9 - Schizophrenia, unspecified SNOMED: 76025997 Qualifiers: Qualified Codes: F20.9 - Schizophrenia, unspecified (2) Hyperkalemia ICD Codes: E87.5 - Hyperkalemia; Z99.2 - Dependence on renal dialysis SNOMED: 96142682 (3) Fracture, pelvis closed ICD Codes: S32.9XXA - Fracture of unspecified parts of lumbosacral spine and pelvis, initial encounter for closed fracture SNOMED: 00344498 Qualifiers: Qualified Codes: S32.89XK - Fracture of other parts of pelvis, subsequent encounter for fracture with nonunion (4) ESRD (end stage renal disease) on dialysis ICD Codes: N18.6 - End stage renal disease; Z99.2 - Dependence on renal dialysis SNOMED: 287005543 (5) Anemia ICD Codes: D64.9 - Anemia, unspecified SNOMED: 814391005 Qualifiers: Qualified Codes: D64.9 - Anemia, unspecified Status: stable, progressing Assessment/Plan: pt diet transfuse and dialysis prn cbc bmp am dc plan Subjective Constitutional: Reports: weakness Allergies: Coded Allergies: No Known Allergies (Unverified , 01/23/20) All Systems: reviewed and negative except above Subjective sleepy calm dialysing Objective Last 24 Hour Vital Signs Date Time Temp Pulse Resp B/P (MAP) Pulse Ox O2 Delivery O2 Flow Rate FiO2 01/26/20 09:00 Room Air 01/26/20 09:00 93 134/78 01/26/20 09:00 93 134/78 01/26/20 08:00 98.1 93 19 134/78 (96) 97 01/26/20 07:43 88 01/26/20 05:31 149/73 01/26/20 04:00 98.3 82 19 149/73 (98) 94 01/26/20 04:00 85 01/26/20 00:00 98.4 82 21 146/71 (96) 94 01/26/20 00:00 88 01/25/20 22:00 144/76 01/25/20 21:58 86 144/76 01/25/20 21:00 Room Air 01/25/20 20:00 86 01/25/20 20:00 98.6 86 20 144/76 (98) 96 01/25/20 16:00 98.8 79 20 145/80 (101) 95 01/25/20 16:00 82 01/25/20 13:25 147/79 01/25/20 12:00 77 01/25/20 12:00 98.8 77 18 147/79 (101) 96 Intake and Output 01/25/20 01/26/20 19:00 07:00 Intake Total 240 ml 100 ml Output Total 600 ml Balance -360 ml 100 ml Intake Oral 240 ml 100 ml Output Urine Total 600 ml Laboratory Tests 01/25/20 17:40: Urine Color Pale yellow, Urine Appearance Slightly cloudy, Urine pH 8, Urine Specific [place] 1.010, Urine Protein 4+H, Urine Glucose (UA) 3+H, Urine Ketones Negative, Urine Blood 1+H, Urine Nitrite Negative, Urine Bilirubin Negative, Urine Urobilinogen Normal, Urine Leukocyte Esterase Negative, Urine RBC 10-15H, Urine WBC 0-2, Urine Squamous Epithelial Cells None, Urine Bacteria Few 01/26/20 11:04: White Blood Count 8.1, Red Blood Count 2.47L, Hemoglobin 7.6L, Hematocrit 23.8L , Mean Corpuscular Volume 96, Mean Corpuscular Hemoglobin 30.5, Mean Corpuscular Hemoglobin Concent 31.8L, Red Cell Distribution Width 16.1H, Platelet Count 207, Mean Platelet Volume 5.7L, Neutrophils (%) (Auto) , Lymphocytes (%) (Auto) , Monocytes (%) (Auto) , Eosinophils (%) (Auto) , Basophils (%) (Auto) , Neutrophils % (Manual) [Pending], Lymphocytes % (Manual) [Pending], Platelet Estimate [Pending], Platelet Morphology [Pending], Sodium Level 143, Potassium Level 5.6H, Chloride Level 110H, Carbon Dioxide Level 22, Anion Gap 11, Blood Urea Nitrogen 79H, Creatinine 6.2H, Estimat Glomerular Filtration Rate 9.6, Glucose Level 126H, Calcium Level 7.7L Height (Feet): 5 Height (Inches): 6.00 Weight (Pounds): 146 General Appearance: lethargic EENT: normal ENT inspection Neck: normal alignment Cardiovascular: normal peripheral pulses, normal rate, regular rhythm Respiratory/Chest: chest wall non-tender, lungs clear, normal breath sounds Abdomen: normal bowel sounds, non tender, soft Extremities: normal inspection Edema: no edema noted Arm (L), no edema noted Arm (R), no edema noted Leg (L), no edema noted Leg (R), no edema noted Pedal (L), no edema noted Pedal (R), no edema noted Generalized Neurologic: motor weakness Skin: normal pigmentation, warm/dry Theo Powers DO Jan 26, 2020 11:56
[2020-01-26 11:58] VITALS: BP 160/87
--- NOTE | 2020-01-26 13:50 | Infectious Diseases Prog Note ---
Assessment/Plan Assessment: fever; improving No leukocytosis -u/a no pyuria PRobable PNA- r/o COVID19 -01/23 CXR: Bilateral right greater than left infiltrates versus edema. Right- sided pleural thickening versus fluid Acute on chronic anemia Hyperkalemia ?report of bacteremia- I can't confirm this. at the moment, patient afebrile, no leukocytosis- no signs of infection. will obtain Bcx x2 01/22 failed attempted PICC line placement; Mid line placed instead COVID19 neg on 01/07 at [place]; a repeat test was sent on 01/20 schizophrenia ESRD on HD HTN smoker pelvic fracture s/p hip hardware placement -01/23/20 hip xray: Positive for bilateral pubic fracture, as described. Fracture lines appear acute and displaced, but presence of proliferative change may indicate a chronic component. Correlate with clinical history Plan: - empiric CEftrriaxone #2/5 for pNA -f/u cx -Monitor CBC/CMP, temperatures -Bcx x2 -COVID isolation and testing -renal f/u -u/a w/r eflex, sp cx Thank you for this consultation. Will continue to follow along with you. Discussed with RN. Subjective Allergies: Coded Allergies: No Known Allergies (Unverified , 01/23/20) afebrile >24hrs no leukocytosis Objective Last 24 Hour Vital Signs Date Time Temp Pulse Resp B/P (MAP) Pulse Ox O2 Delivery O2 Flow Rate FiO2 01/26/20 11:58 98.3 86 20 160/87 (111) 96 01/26/20 11:44 87 01/26/20 09:00 Room Air 01/26/20 09:00 93 134/78 01/26/20 09:00 93 134/78 01/26/20 08:00 98.1 93 19 134/78 (96) 97 01/26/20 07:43 88 01/26/20 05:31 149/73 01/26/20 04:00 98.3 82 19 149/73 (98) 94 01/26/20 04:00 85 01/26/20 00:00 98.4 82 21 146/71 (96) 94 01/26/20 00:00 88 01/25/20 22:00 144/76 01/25/20 21:58 86 144/76 7/8/20 21:00 Room Air 01/25/20 20:00 86 01/25/20 20:00 98.6 86 20 144/76 (98) 96 01/25/20 16:00 98.8 79 20 145/80 (101) 95 01/25/20 16:00 82 Height (Feet): 5 Height (Inches): 6.00 Weight (Pounds): 146 not examined to limit COVID19 exposure Laboratory Tests Test 01/25/20 17:40 01/26/20 11:04 Urine Color Pale yellow Urine Appearance Slightly cloudy Urine pH 8 (4.5-8.0) Urine Specific [place] 1.010 (1.005-1.035) Urine Protein 4+ (NEGATIVE) H Urine Glucose (UA) 3+ (NEGATIVE) H Urine Ketones Negative (NEGATIVE) Urine Blood 1+ (NEGATIVE) H Urine Nitrite Negative (NEGATIVE) Urine Bilirubin Negative (NEGATIVE) Urine Urobilinogen Normal MG/DL (0.0-1.0) Urine Leukocyte Esterase Negative (NEGATIVE) Urine RBC 10-15 /HPF (0 - 0) H Urine WBC 0-2 /HPF (0 - 0) Urine Squamous Epithelial Cells None /LPF (NONE/OCC) Urine Bacteria Few /HPF (NONE) White Blood Count 8.1 K/UL (4.8-10.8) Red Blood Count 2.47 M/UL (4.70-6.10) L Hemoglobin 7.6 G/DL (14.2-18.0) L Hematocrit 23.8 % (42.0-52.0) L Mean Corpuscular Volume 96 FL (80-99) Mean Corpuscular Hemoglobin 30.5 PG (27.0-31.0) Mean Corpuscular Hemoglobin Concent 31.8 G/DL (32.0-36.0) L Red Cell Distribution Width 16.1 % (11.6-14.8) H Platelet Count 207 K/UL (150-450) Mean Platelet Volume 5.7 FL (6.5-10.1) L Neutrophils (%) (Auto) % (45.0-75.0) Lymphocytes (%) (Auto) % (20.0-45.0) Monocytes (%) (Auto) % (1.0-10.0) Eosinophils (%) (Auto) % (0.0-3.0) Basophils (%) (Auto) % (0.0-2.0) Differential Total Cells Counted 100 Neutrophils % (Manual) 69 % (45-75) Lymphocytes % (Manual) 16 % (20-45) L Monocytes % (Manual) 6 % (1-10) Eosinophils % (Manual) 8 % (0-3) H Basophils % (Manual) 1 % (0-2) Band Neutrophils 0 % (0-8) Platelet Estimate Adequate Platelet Morphology Normal Hypochromasia 3+ Anisocytosis 1+ Sodium Level 143 MMOL/L (136-145) Potassium Level 5.6 MMOL/L (3.5-5.1) H Chloride Level 110 MMOL/L (98-107) H Carbon Dioxide Level 22 MMOL/L (21-32) Anion Gap 11 mmol/L (5-15) Blood Urea Nitrogen 79 mg/dL (7-18) H Creatinine 6.2 MG/DL (0.55-1.30) H Estimat Glomerular Filtration Rate 9.6 mL/min (>60) Glucose Level 126 MG/DL (74-106) H Calcium Level 7.7 MG/DL (8.5-10.1) L Current Medications Medications (Trade) Dose Ordered Sig/Michelle Route PRN Reason Start Time Stop Time Status Last Admin Dose Admin Amlodipine Besylate (Norvasc) 10 mg DAILY ORAL 01/25/20 09:00 02/24/20 08:59 01/25/20 09:12 Ceftriaxone Sodium 1 gm/ Dextrose 55 ml @ 110 mls/hr Q24H IVPB 01/25/20 15:00 02/01/20 14:59 01/25/20 15:44 Chlorhexidine Gluconate (Karley-Hex 2%) 1 applic DAILY@1999 TOPIC 01/23/20 20:00 04/22/20 19:59 01/25/20 21:58 Clonidine HCl (Catapres tab) 0.2 mg Q8HR ORAL 01/24/20 22:00 04/23/20 08:59 01/26/20 05:31 Docusate Sodium (Colace) 100 mg TIAC ORAL 01/24/20 11:30 02/23/20 08:59 01/26/20 10:41 Ferrous Sulfate (Feosol) 325 mg THREE TIMES A DAY ORAL 01/24/20 09:00 04/23/20 08:59 01/26/20 12:38 Hydralazine HCl (Apresoline) 10 mg Q4H PRN IV for bp over 165 syst 01/24/20 09:00 04/23/20 08:59 Lorazepam (Ativan) 1 mg Q6H PRN ORAL For Anxiety 01/24/20 14:23 01/31/20 14:22 Magnesium Hydroxide (Mom) 30 ml HSPRN PRN ORAL Constipation 01/23/20 22:30 02/22/20 22:29 Metoprolol Tartrate (Lopressor) 100 mg EVERY 12 HOURS ORAL 01/24/20 09:00 04/23/20 08:59 01/25/20 21:58 Morphine Sulfate (Morphine Sulfate) 2 mg Q4H PRN IVP For Pain -01/24/20 00:25 01/30/20 00:24 01/26/20 10:41 Neomycin/ Polymyxin/ Bacitracin (Neomycin/Polymy/ Bacitr Oint) 1 applic TID PRN TOPIC for skin infection 01/23/20 22:30 04/22/20 22:29 Pantoprazole (Protonix) 40 mg EVERY 12 HOURS ORAL 01/24/20 09:00 02/23/20 08:59 01/26/20 09:31 Quetiapine Fumarate (SEROqueL) 100 mg TID ORAL 01/24/20 09:00 03/09/20 08:59 01/26/20 12:38 Sevelamer Carbonate (Renvela) 1,600 mg THREE TIMES A DAY ORAL 01/24/20 18:00 04/23/20 17:59 01/26/20 12:38 Tramadol HCl (Ultram) 50 mg Q6H PRN ORAL moderate to severe pain 01/23/20 22:30 01/30/20 22:29 Zinc Sulfate (Zinc Sulfate) 220 mg DAILY ORAL 01/24/20 09:00 04/23/20 08:59 01/26/20 09:30 Michelle Morales M.D. Jan 26, 2020 13:50
[2020-01-26] MEDS ORDERED: CEFTRIAXON1 GM/50 ML IV (14:07)
[2020-01-26] MEDS ORDERED: SEROQUEL100 MG ORAL (14:16)
[2020-01-26] MEDS ORDERED: DOCUSATE SODIU100 MG ORAL (14:19)
[2020-01-26] MEDS: cefTRIAXone 1 GM in D5W 55 ML IVPB SCH (14:45)
[2020-01-26 15:37] VITALS: BP 139/72
[2020-01-26 20:00] VITALS: BP 148/80
[2020-01-26] MEDS: Dyna-Hex 2% Top Sol 2oz TOPIC SCH (20:00)
[2020-01-27] VITALS: BP 132/78
[2020-01-27] MEDS: Morphine Sulfate 2mg/ml Inj(IV/IM USE ONLY) IVP PRN ×5 (03:11→21:53)
[2020-01-27 04:00] VITALS: BP 139/79
[2020-01-27] MEDS: cloNIDine 0.2mg Tab ORAL SCH ×3 (06:19→21:54)
[2020-01-27] MEDS: Docusate 100mg cap ORAL SCH ×3 (06:19→16:57)
[2020-01-27 07:51] VITALS: BP 147/88
[2020-01-27] MEDS: Metoprolol Tartrate 100mg tab ORAL SCH (08:35)
[2020-01-27] MEDS: Zinc Sulfate 220mg ORAL SCH (08:36)
--- NOTE | 2020-01-27 09:05 | General Progress Note ---
Assessment/Plan Problem List: (1) Schizophrenia ICD Codes: F20.9 - Schizophrenia, unspecified SNOMED: 99524587 Qualifiers: Qualified Codes: F20.9 - Schizophrenia, unspecified (2) Hyperkalemia ICD Codes: E87.5 - Hyperkalemia; Z99.2 - Dependence on renal dialysis SNOMED: 01932632 (3) Fracture, pelvis closed ICD Codes: S32.9XXA - Fracture of unspecified parts of lumbosacral spine and pelvis, initial encounter for closed fracture SNOMED: 32987023 Qualifiers: Qualified Codes: S32.89XK - Fracture of other parts of pelvis, subsequent encounter for fracture with nonunion (4) ESRD (end stage renal disease) on dialysis ICD Codes: N18.6 - End stage renal disease; Z99.2 - Dependence on renal dialysis SNOMED: 622514263 (5) Anemia ICD Codes: D64.9 - Anemia, unspecified SNOMED: 782176913 Qualifiers: Qualified Codes: D64.9 - Anemia, unspecified Status: stable, progressing Assessment/Plan: pt diet transfuse and dialysis prn cbc bmp am dc plan Subjective Constitutional: Reports: weakness Allergies: Coded Allergies: No Known Allergies (Unverified , 01/23/20) All Systems: reviewed and negative except above Subjective sleepy calm Objective Last 24 Hour Vital Signs Date Time Temp Pulse Resp B/P (MAP) Pulse Ox O2 Delivery O2 Flow Rate FiO2 01/27/20 08:36 82 147/88 01/27/20 08:35 82 147/88 01/27/20 08:28 82 01/27/20 07:51 98.1 80 19 147/88 (107) 97 01/27/20 06:19 139/79 01/27/20 04:00 80 01/27/20 04:00 97.9 81 18 139/79 (99) 97 01/27/20 00:00 82 01/27/20 00:00 98.3 81 18 132/78 (96) 98 01/26/20 21:42 148/80 01/26/20 21:42 83 148/80 01/26/20 21:00 Room Air 01/26/20 20:00 99.1 83 18 148/80 (102) 97 01/26/20 15:38 93 01/26/20 15:37 97.7 94 20 139/72 (94) 95 01/26/20 14:44 160/87 01/26/20 11:58 98.3 86 20 160/87 (111) 96 01/26/20 11:44 87 Intake and Output 01/26/20 01/27/20 19:00 07:00 Intake Total 605 ml Output Total 1400 ml Balance -795 ml Intake Oral 550 ml IV Total 55 ml Output Urine Total 400 ml Hemodialysis UF 1000 ml # Voids 1 Laboratory Tests 01/26/20 11:04: White Blood Count 8.1, Red Blood Count 2.47L, Hemoglobin 7.6L, Hematocrit 23.8L , Mean Corpuscular Volume 96, Mean Corpuscular Hemoglobin 30.5, Mean Corpuscular Hemoglobin Concent 31.8L, Red Cell Distribution Width 16.1H, Platelet Count 207, Mean Platelet Volume 5.7L, Neutrophils (%) (Auto) , Lymphocytes (%) (Auto) , Monocytes (%) (Auto) , Eosinophils (%) (Auto) , Basophils (%) (Auto) , Differential Total Cells Counted 100, Neutrophils % ( Manual) 69, Lymphocytes % (Manual) 16L, Monocytes % (Manual) 6, Eosinophils % ( Manual) 8H, Basophils % (Manual) 1, Band Neutrophils 0, Platelet Estimate Adequate, Platelet Morphology Normal, Hypochromasia 3+, Anisocytosis 1+, Sodium Level 143, Potassium Level 5.6H, Chloride Level 110H, Carbon Dioxide Level 22, Anion Gap 11, Blood Urea Nitrogen 79H, Creatinine 6.2H, Estimat Glomerular Filtration Rate 9.6, Glucose Level 126H, Calcium Level 7.7L Height (Feet): 5 Height (Inches): 6.00 Weight (Pounds): 146 General Appearance: lethargic EENT: normal ENT inspection Neck: normal alignment Cardiovascular: normal peripheral pulses, normal rate, regular rhythm Respiratory/Chest: chest wall non-tender, lungs clear, normal breath sounds Abdomen: normal bowel sounds, non tender, soft Extremities: normal inspection Edema: no edema noted Arm (L), no edema noted Arm (R), no edema noted Leg (L), no edema noted Leg (R), no edema noted Pedal (L), no edema noted Pedal (R), no edema noted Generalized Neurologic: motor weakness Skin: normal pigmentation, warm/dry Theo Powers DO Jan 27, 2020 09:05
--- NOTE | 2020-01-27 11:15 | Progress Note ---
DATE: 01/27/2020 SUBJECTIVE: This is a 49-year-old male with hyperkalemia. He is confused and disorganized, but he has got wrist fracture, bacteremia, hyperkalemia, end-stage renal disease on hemodialysis, and anemia that is causing him to have a decline in cognition below his baseline. MENTAL STATUS EXAMINATION: This is a 49-year-old male. Appearance is disheveled. Attitude is irritable and agitated. Affect, guarded and restricted. Intellect, poor. Mood, depressed and anxious. Motor activity, psychomotor agitation. Attention span is poor. Orientation x2. Speech is low volume and slurred. Thought process, disorganized and illogical. Insight and judgment is poor. DIAGNOSIS: Paranoid schizophrenia, acute exacerbation. PLAN: Treat this patient with medication regimen of Seroquel 100 mg three times a day and Ativan 1 mg every six hours p.r.n. anxiety or agitation. 20 minutes of cognitive behavioral therapy will help him identify his automatic negative thoughts and help convert his negative thoughts to more positive thoughts. Plan is to transfer to [facility] once medically cleared. Maura Larios M.D. DR: ADRI JOB#: [id number] CC:
[2020-01-27 11:43] VITALS: BP 138/78
--- NOTE | 2020-01-27 11:49 | Infectious Diseases Prog Note ---
Assessment/Plan Assessment: fever; improving No leukocytosis -u/a no pyuria PRobable PNA- r/o COVID19 -01/23 CXR: Bilateral right greater than left infiltrates versus edema. Right- sided pleural thickening versus fluid Acute on chronic anemia Hyperkalemia ?report of bacteremia- I can't confirm this. at the moment, patient afebrile, no leukocytosis- no signs of infection. will obtain Bcx x2 01/22 failed attempted PICC line placement; Mid line placed instead COVID19 neg on 01/07 at [facility]; a repeat test was sent on 01/20 schizophrenia ESRD on HD HTN smoker pelvic fracture s/p hip hardware placement -01/23/20 hip xray: Positive for bilateral pubic fracture, as described. Fracture lines appear acute and displaced, but presence of proliferative change may indicate a chronic component. Correlate with clinical history Plan: - empiric CEftrriaxone # 3/5 for pNA -f/u cx -Monitor CBC/CMP, temperatures -Bcx x2 -COVID isolation and testing -renal f/u -u/a w/r eflex, sp cx Thank you for this consultation. Will continue to follow along with you. Discussed with RN. Subjective Allergies: Coded Allergies: No Known Allergies (Unverified , 01/23/20) afebrile Objective Last 24 Hour Vital Signs Date Time Temp Pulse Resp B/P (MAP) Pulse Ox O2 Delivery O2 Flow Rate FiO2 01/27/20 11:43 97.7 79 18 138/78 (98) 97 01/27/20 09:09 Room Air 01/27/20 08:36 82 147/88 01/27/20 08:35 82 147/88 01/27/20 08:28 82 01/27/20 07:51 98.1 80 19 147/88 (107) 97 01/27/20 06:19 139/79 01/27/20 04:00 80 01/27/20 04:00 97.9 81 18 139/79 (99) 97 01/27/20 00:00 82 01/27/20 00:00 98.3 81 18 132/78 (96) 98 01/26/20 21:42 148/80 01/26/20 21:42 83 148/80 01/26/20 21:00 Room Air 01/26/20 20:00 99.1 83 18 148/80 (102) 97 01/26/20 15:38 93 01/26/20 15:37 97.7 94 20 139/72 (94) 95 01/26/20 14:44 160/87 01/26/20 11:58 98.3 86 20 160/87 (111) 96 Height (Feet): 5 Height (Inches): 6.00 Weight (Pounds): 146 HEENT: anicteric Respiratory/Chest: lungs clear Cardiovascular: normal rate Current Medications Medications (Trade) Dose Ordered Sig/Michelle Route PRN Reason Start Time Stop Time Status Last Admin Dose Admin Amlodipine Besylate (Norvasc) 10 mg DAILY ORAL 01/25/20 09:00 02/24/20 08:59 01/27/20 08:36 Ceftriaxone Sodium 1 gm/ Dextrose 55 ml @ 110 mls/hr Q24H IVPB 01/25/20 15:00 02/01/20 14:59 01/26/20 14:45 Chlorhexidine Gluconate (Karley-Hex 2%) 1 applic DAILY@2000 TOPIC 01/23/20 20:00 04/22/20 19:59 01/26/20 20:00 Clonidine HCl (Catapres tab) 0.2 mg Q8HR ORAL 01/24/20 22:00 04/23/20 08:59 01/27/20 06:19 Docusate Sodium (Colace) 100 mg TIAC ORAL 01/24/20 11:30 02/23/20 08:59 01/27/20 06:19 Ferrous Sulfate (Feosol) 325 mg THREE TIMES A DAY ORAL 01/24/20 09:00 04/23/20 08:59 01/27/20 08:33 Hydralazine HCl (Apresoline) 10 mg Q4H PRN IV for bp over 165 syst 01/24/20 09:00 04/23/20 08:59 Lorazepam (Ativan) 1 mg Q6H PRN ORAL For Anxiety 01/24/20 14:23 01/31/20 14:22 Magnesium Hydroxide (Mom) 30 ml HSPRN PRN ORAL Constipation 01/23/20 22:30 02/22/20 22:29 01/26/20 21:42 Metoprolol Tartrate (Lopressor) 100 mg EVERY 12 HOURS ORAL 01/24/20 09:00 04/23/20 08:59 01/27/20 08:35 Morphine Sulfate (Morphine Sulfate) 2 mg Q4H PRN IVP For Pain 6-8 01/24/20 00:25 01/30/20 00:24 01/27/20 08:26 Neomycin/ Polymyxin/ Bacitracin (Neomycin/Polymy/ Bacitr Oint) 1 applic TID PRN TOPIC for skin infection 01/23/20 22:30 04/22/20 22:29 Pantoprazole (Protonix) 40 mg EVERY 12 HOURS ORAL 01/24/20 09:00 02/23/20 08:59 01/27/20 08:36 Quetiapine Fumarate (SEROqueL) 100 mg TID ORAL 01/24/20 09:00 03/09/20 08:59 01/27/20 08:36 Sevelamer Carbonate (Renvela) 1,600 mg THREE TIMES A DAY ORAL 01/24/20 18:00 04/23/20 17:59 01/27/20 08:36 Tramadol HCl (Ultram) 50 mg Q6H PRN ORAL moderate to severe pain 01/23/20 22:30 01/30/20 22:29 Zinc Sulfate (Zinc Sulfate) 220 mg DAILY ORAL 01/24/20 09:00 04/23/20 08:59 01/27/20 08:36 Willi Guerrero MD Jan 27, 2020 11:49
--- NOTE | 2020-01-27 12:00 | Nephrology Progress Note ---
Assessment/Plan Problem List: (1) ESRD (end stage renal disease) on dialysis (2) Anemia (3) Hyperkalemia (4) Hypertensive kidney disease Assessment End-stage renal disease on hemodialysis via chest permacath, patient missed dialysis Presents with severe anemia and hyperkalemia Status post transfusion for anemia Status post insertion of a PICC line History of hypertension History of psych disease Plan January 26: Consultants appreciated. As per lead case manager patient refuses to go to the psych unit or fpc and wants to be discharged to the street. According to the psychiatrist patient does not have capacity to make rational decision. If the patient does not receive dialysis on a regular basis he is clinical condition will deteriorated with . Dialysis ordered for tomorrow. Labs to be drawn prior to initiation of dialysis tomorrow. Continue to rest of management and per consultants. Medication list reviewed. I spent an additional 36 minutes on review of medical records ,consult notes, progress notes, imaging and available labs, and other clinical documentation. Frequent conversation with the case management Anahi and Dr. Powers and RN taking care of the patient today. January 25: Patient will receive dialysis today. Is only agreeable to draw blood work prior to dialysis from the access line. Further comments after lab results available. January 24: Today's labs pending. Will order dialysis for tomorrow. Blood pressure stable. Hemodialysis for hyperkalemia, was done on January 23. Adjust blood pressure medications Plus binders Continue to monitor her hemoglobin hematocrit and blood pressure Per orders Subjective ROS Limited/Unobtainable: No Objective Objective Last 24 Hour Vital Signs Date Time Temp Pulse Resp B/P (MAP) Pulse Ox O2 Delivery O2 Flow Rate FiO2 01/27/20 11:43 97.7 79 18 138/78 (98) 97 01/27/20 09:09 Room Air 01/27/20 08:36 82 147/88 01/27/20 08:35 82 147/88 01/27/20 08:28 82 01/27/20 07:51 98.1 80 19 147/88 (107) 97 01/27/20 06:19 139/79 01/27/20 04:00 80 01/27/20 04:00 97.9 81 18 139/79 (99) 97 01/27/20 00:00 82 01/27/20 00:00 98.3 81 18 132/78 (96) 98 7/9/20 21:42 148/80 01/26/20 21:42 83 148/80 01/26/20 21:00 Room Air 01/26/20 20:00 99.1 83 18 148/80 (102) 97 01/26/20 15:38 93 01/26/20 15:37 97.7 94 20 139/72 (94) 95 01/26/20 14:44 160/87 01/26/20 11:58 98.3 86 20 160/87 (111) 96 Intake and Output 01/26/20 01/27/20 19:00 07:00 Intake Total 605 ml Output Total 1400 ml Balance -795 ml Intake Oral 550 ml IV Total 55 ml Output Urine Total 400 ml Hemodialysis UF 1000 ml # Voids 1 Current Medications Medications (Trade) Dose Ordered Sig/Michelle Route PRN Reason Start Time Stop Time Status Last Admin Dose Admin Amlodipine Besylate (Norvasc) 10 mg DAILY ORAL 01/25/20 09:00 02/24/20 08:59 01/27/20 08:36 Ceftriaxone Sodium 1 gm/ Dextrose 55 ml @ 110 mls/hr Q24H IVPB 01/25/20 15:00 02/01/20 14:59 01/26/20 14:45 Chlorhexidine Gluconate (Karley-Hex 2%) 1 applic DAILY@2000 TOPIC 01/23/20 20:00 04/22/20 19:59 01/26/20 20:00 Clonidine HCl (Catapres tab) 0.2 mg Q8HR ORAL 01/24/20 22:00 04/23/20 08:59 01/27/20 06:19 Docusate Sodium (Colace) 100 mg TIAC ORAL 01/24/20 11:30 02/23/20 08:59 01/27/20 06:19 Ferrous Sulfate (Feosol) 325 mg THREE TIMES A DAY ORAL 01/24/20 09:00 04/23/20 08:59 01/27/20 08:33 Hydralazine HCl (Apresoline) 10 mg Q4H PRN IV for bp over 165 syst 01/24/20 09:00 04/23/20 08:59 Lorazepam (Ativan) 1 mg Q6H PRN ORAL For Anxiety 01/24/20 14:23 01/31/20 14:22 Magnesium Hydroxide (Mom) 30 ml HSPRN PRN ORAL Constipation 01/23/20 22:30 02/22/20 22:29 01/26/20 21:42 Metoprolol Tartrate (Lopressor) 100 mg EVERY 12 HOURS ORAL 01/24/20 09:00 04/23/20 08:59 01/27/20 08:35 Morphine Sulfate (Morphine Sulfate) 2 mg Q4H PRN IVP For Pain -8 01/24/20 00:25 01/30/20 00:24 01/27/20 08:26 Neomycin/ Polymyxin/ Bacitracin (Neomycin/Polymy/ Bacitr Oint) 1 applic TID PRN TOPIC for skin infection 01/23/20 22:30 04/22/20 22:29 Pantoprazole (Protonix) 40 mg EVERY 12 HOURS ORAL 01/24/20 09:00 02/23/20 08:59 01/27/20 08:36 Quetiapine Fumarate (SEROqueL) 100 mg TID ORAL 01/24/20 09:00 03/09/20 08:59 01/27/20 08:36 Sevelamer Carbonate (Renvela) 1,600 mg THREE TIMES A DAY ORAL 01/24/20 18:00 04/23/20 17:59 01/27/20 08:36 Tramadol HCl (Ultram) 50 mg Q6H PRN ORAL moderate to severe pain 01/23/20 22:30 01/30/20 22:29 Zinc Sulfate (Zinc Sulfate) 220 mg DAILY ORAL 01/24/20 09:00 04/23/20 08:59 01/27/20 08:36 Refused blood draw today Height (Feet): 5 Height (Inches): 6.00 Weight (Pounds): 146 General Appearance: no apparent distress, other - Pleasant but uncooperative Cardiovascular: normal rate Respiratory/Chest: decreased breath sounds Abdomen: soft Objective No change Viktor Kang MD Jan 27, 2020 12:00
[2020-01-27] MEDS: cefTRIAXone 1 GM in D5W 55 ML IVPB SCH (14:59)
[2020-01-27 15:53] VITALS: BP 135/80
[2020-01-27 20:00] VITALS: BP 135/85
[2020-01-27] MEDS ORDERED: LORazepam 1mg tab ORAL PRN (21:00)
[2020-01-27] MEDS ORDERED: Milk of Magnesia 30ml Ud ORAL PRN (21:00)
[2020-01-27] MEDS ORDERED: traMADol 50mg tab ORAL PRN (21:00)
[2020-01-27] MEDS ORDERED: Neosporin Oint 15gm TOPIC PRN (21:00)
[2020-01-28] VITALS (7 sets, daily range): BP systolic 124–159; BP diastolic 69–87
[2020-01-28] MEDS: Morphine Sulfate 2mg/ml Inj(IV/IM USE ONLY) IVP PRN ×5 (01:53→18:38)
[2020-01-28] MEDS: cloNIDine 0.2mg Tab ORAL SCH ×3 (05:57→21:33)
[2020-01-28] MEDS: Docusate 100mg cap ORAL SCH ×3 (05:57→17:08)
[2020-01-28] MEDS: Metoprolol Tartrate 100mg tab ORAL SCH ×2 (08:18→20:31)
[2020-01-28] MEDS: Zinc Sulfate 220mg ORAL SCH (08:19)
--- NOTE | 2020-01-28 09:18 | Infectious Diseases Prog Note ---
Assessment/Plan Assessment: fever; improving No leukocytosis -u/a no pyuria PRobable PNA- r/o COVID19 -01/23 CXR: Bilateral right greater than left infiltrates versus edema. Right- sided pleural thickening versus fluid Acute on chronic anemia Hyperkalemia ?report of bacteremia- I can't confirm this. at the moment, patient afebrile, no leukocytosis- no signs of infection. will obtain Bcx x2 01/22 failed attempted PICC line placement; Mid line placed instead COVID19 neg on 01/[address] [place]; a repeat test was sent on 01/20 schizophrenia ESRD on HD HTN smoker pelvic fracture s/p hip hardware placement -01/23/20 hip xray: Positive for bilateral pubic fracture, as described. Fracture lines appear acute and displaced, but presence of proliferative change may indicate a chronic component. Correlate with clinical history Plan: - empiric Ceftrriaxone # 4/5 for pNA -f/u cx -Monitor CBC/CMP, temperatures -Bcx x2 -COVID isolation and testing -renal f/u -u/a w/r eflex, sp cx Thank you for this consultation. Will continue to follow along with you. Discussed with RN. Subjective Allergies: Coded Allergies: No Known Allergies (Unverified , 01/23/20) Aferbile No Leukocytosis Objective Last 24 Hour Vital Signs Date Time Temp Pulse Resp B/P (MAP) Pulse Ox O2 Delivery O2 Flow Rate FiO2 01/28/20 08:19 88 145/87 01/28/20 08:18 88 145/87 01/28/20 08:00 98.4 88 18 145/87 (106) 97 01/28/20 05:57 150/80 01/28/20 04:00 98.2 86 19 150/80 (103) 95 01/28/20 00:00 97.8 84 19 148/78 (101) 96 01/27/20 21:54 135/85 01/27/20 21:00 Room Air 01/27/20 20:00 98.1 80 20 135/85 (102) 97 01/27/20 16:00 82 01/27/20 15:53 97.7 78 18 135/80 (98) 96 01/27/20 13:51 138/78 01/27/20 12:00 78 01/27/20 11:43 97.7 79 18 138/78 (98) 97 Height (Feet): 5 Height (Inches): 6.00 Weight (Pounds): 146 Not examined today in order to conserve PPE and decrease exposer. Patient condition discussed with nurse and other physician physical exams reviewed Current Medications Medications (Trade) Dose Ordered Sig/Michelle Route PRN Reason Start Time Stop Time Status Last Admin Dose Admin Amlodipine Besylate (Norvasc) 10 mg DAILY ORAL 01/28/20 09:00 02/24/20 08:59 01/28/20 08:19 Ceftriaxone Sodium 1 gm/ Dextrose 55 ml @ 110 mls/hr Q24H IVPB 01/28/20 15:00 02/01/20 14:59 Chlorhexidine Gluconate (Karley-Hex 2%) 1 applic DAILY@1999 TOPIC 01/28/20 20:00 04/22/20 19:59 Clonidine HCl (Catapres tab) 0.2 mg Q8HR ORAL 01/27/20 22:00 04/23/20 08:59 01/28/20 05:57 Docusate Sodium (Colace) 100 mg TIAC ORAL 01/28/20 06:30 02/23/20 08:59 01/28/20 05:57 Ferrous Sulfate (Feosol) 325 mg THREE TIMES A DAY ORAL 01/28/20 09:00 04/23/20 08:59 01/28/20 08:19 Lorazepam (Ativan) 1 mg Q6H PRN ORAL For Anxiety 01/27/20 21:00 02/03/20 20:59 Magnesium Hydroxide (Mom) 30 ml HSPRN PRN ORAL Constipation 01/27/20 21:00 02/26/20 20:59 Metoprolol Tartrate (Lopressor) 100 mg EVERY 12 HOURS ORAL 01/27/20 21:00 04/23/20 08:59 01/28/20 08:18 Morphine Sulfate (Morphine Sulfate) 2 mg Q4H PRN IVP For Pain 6-8 01/27/20 21:00 02/03/20 20:59 01/28/20 05:57 Neomycin/ Polymyxin/ Bacitracin (Neomycin/Polymy/ Bacitr Oint) 1 applic Q8H PRN TOPIC for skin infection 01/27/20 21:00 04/26/20 20:59 Pantoprazole (Protonix) 40 mg EVERY 12 HOURS ORAL 01/27/20 21:00 02/23/20 08:59 01/28/20 08:19 Quetiapine Fumarate (SEROqueL) 100 mg TID ORAL 01/28/20 09:00 03/09/20 08:59 Sevelamer Carbonate (Renvela) 1,600 mg THREE TIMES A DAY ORAL 01/28/20 09:00 04/23/20 17:59 01/28/20 08:19 Tramadol HCl (Ultram) 50 mg Q6H PRN ORAL moderate to severe pain 01/27/20 21:00 01/30/20 20:59 Zinc Sulfate (Zinc Sulfate) 220 mg DAILY ORAL 01/28/20 09:00 04/23/20 08:59 01/28/20 08:19 Jasmeet Santoro MD Jan 28, 2020 09:18
[2020-01-28 10:03] LABS: HEMATOCRIT 22.5 % (42.0-52.0); HEMOGLOBIN 7.2 G/DL (14.2-18.0); MEAN CORPUSCULAR VOLUME 95 FL (80-99); PLATELET COUNT 200 K/UL (150-450); RED BLOOD COUNT 2.36 M/UL (4.70-6.10); RED CELL DISTRIBUTION WIDTH 15.4 % (11.6-14.8); WHITE BLOOD COUNT 7.4 K/UL (4.8-10.8)
[2020-01-28 10:27] LABS: % IRON SATURATION 30 % (15-50); IRON 31 ug/dL (50-175); TOTAL IRON BINDING CAPACITY 104 ug/dL (250-450)
[2020-01-28 10:35] LABS: ALANINE AMINOTRANSFERASE 8 U/L (12-78); ALBUMIN 1.5 G/DL (3.4-5.0); ALBUMIN/GLOBULIN RATIO 0.3 (1.0-2.7); ALKALINE PHOSPHATASE 211 U/L (46-116); ANION GAP 13 mmol/L (5-15); ASPARTATE AMINO TRANSFERASE 13 U/L (15-37); BILIRUBIN,TOTAL 0.2 MG/DL (0.2-1.0); BLOOD UREA NITROGEN 71 mg/dL (7-18); CALCIUM 7.8 MG/DL (8.5-10.1); CARBON DIOXIDE 24 MMOL/L (21-32); CHLORIDE 105 MMOL/L (98-107); CHOLESTEROL 115 MG/DL (< 200); CREATININE 6.3 MG/DL (0.55-1.30); FERRITIN 738 NG/ML (8-388); HDL CHOLESTEROL 34 MG/DL (40-60); PHOSPHORUS 6.9 MG/DL (2.5-4.9); POTASSIUM 5.1 MMOL/L (3.5-5.1); SODIUM 141 MMOL/L (136-145); TRIGLYCERIDES 90 MG/DL (30-150)
--- NOTE | 2020-01-28 12:06 | General Progress Note ---
Assessment/Plan Problem List: (1) Schizophrenia ICD Codes: F20.9 - Schizophrenia, unspecified SNOMED: 44561777 Qualifiers: Qualified Codes: F20.9 - Schizophrenia, unspecified (2) Hyperkalemia ICD Codes: E87.5 - Hyperkalemia; Z99.2 - Dependence on renal dialysis SNOMED: 15761251 (3) Fracture, pelvis closed ICD Codes: S32.9XXA - Fracture of unspecified parts of lumbosacral spine and pelvis, initial encounter for closed fracture SNOMED: 23446476 Qualifiers: Qualified Codes: S32.89XK - Fracture of other parts of pelvis, subsequent encounter for fracture with nonunion (4) ESRD (end stage renal disease) on dialysis ICD Codes: N18.6 - End stage renal disease; Z99.2 - Dependence on renal dialysis SNOMED: 911806403 (5) Anemia ICD Codes: D64.9 - Anemia, unspecified SNOMED: 277393948 Qualifiers: Qualified Codes: D64.9 - Anemia, unspecified Status: stable, progressing Assessment/Plan: pt diet transfuse prn dialysis prn cbc bmp am gi heme eval Subjective Constitutional: Reports: weakness Allergies: Coded Allergies: No Known Allergies (Unverified , 01/23/20) All Systems: reviewed and negative except above Subjective sleepy calm Objective Last 24 Hour Vital Signs Date Time Temp Pulse Resp B/P (MAP) Pulse Ox O2 Delivery O2 Flow Rate FiO2 01/28/20 09:00 Room Air 01/28/20 08:19 88 145/87 01/28/20 08:18 88 145/87 01/28/20 08:00 98.4 88 18 145/87 (106) 97 01/28/20 05:57 150/80 01/28/20 04:00 98.2 86 19 150/80 (103) 95 01/28/20 00:00 97.8 84 19 148/78 (101) 96 01/27/20 21:54 135/85 01/27/20 21:00 Room Air 01/27/20 20:00 98.1 80 20 135/85 (102) 97 01/27/20 16:00 82 01/27/20 15:53 97.7 78 18 135/80 (98) 96 01/27/20 13:51 138/78 Intake and Output 01/27/20 01/28/20 19:00 07:00 Intake Total 320 ml Output Total 500 ml Balance -180 ml Intake Oral 320 ml Output Urine Total 500 ml # Voids 1 2 Laboratory Tests 01/28/20 09:46: White Blood Count 7.4, Red Blood Count 2.36L, Hemoglobin 7.2L, Hematocrit 22.5L , Mean Corpuscular Volume 95, Mean Corpuscular Hemoglobin 30.4, Mean Corpuscular Hemoglobin Concent 31.9L, Red Cell Distribution Width 15.4H, Platelet Count 200, Mean Platelet Volume 6.0L, Neutrophils (%) (Auto) , Lymphocytes (%) (Auto) , Monocytes (%) (Auto) , Eosinophils (%) (Auto) , Basophils (%) (Auto) , Differential Total Cells Counted 100, Neutrophils % ( Manual) 76H, Lymphocytes % (Manual) 9L, Monocytes % (Manual) 7, Eosinophils % ( Manual) 8H, Basophils % (Manual) 0, Band Neutrophils 0, Platelet Estimate Adequate, Platelet Morphology Normal, Anisocytosis 1+, Sodium Level 141, Potassium Level 5.1, Chloride Level 105, Carbon Dioxide Level 24, Anion Gap 13, Blood Urea Nitrogen 71H, Creatinine 6.3H, Estimat Glomerular Filtration Rate 9.4 , Glucose Level 125H, Uric Acid 4.8, Calcium Level 7.8L, Phosphorus Level 6.9H, Magnesium Level 1.9, Iron Level 31L, Total Iron Binding Capacity 104L, Percent Iron Saturation 30, Unsaturated Iron Binding 73L, Ferritin 738H, Total Bilirubin 0.2, Aspartate Amino Transf (AST/SGOT) 13L, Alanine Aminotransferase ( ALT/SGPT) 8L, Alkaline Phosphatase 211H, Total Protein 6.9, Albumin 1.5L, Globulin 5.4, Albumin/Globulin Ratio 0.3L, Triglycerides Level 90, Cholesterol Level 115, LDL Cholesterol 65, HDL Cholesterol 34L, Cholesterol/HDL Ratio 3.4, Vitamin B12 Level 409, Folate 14.4 Height (Feet): 5 Height (Inches): 6.00 Weight (Pounds): 146 General Appearance: lethargic EENT: normal ENT inspection Neck: normal alignment Cardiovascular: normal peripheral pulses, normal rate, regular rhythm Respiratory/Chest: chest wall non-tender, lungs clear, normal breath sounds Abdomen: normal bowel sounds, non tender, soft Extremities: normal inspection Edema: no edema noted Arm (L), no edema noted Arm (R), no edema noted Leg (L), no edema noted Leg (R), no edema noted Pedal (L), no edema noted Pedal (R), no edema noted Generalized Neurologic: motor weakness Skin: normal pigmentation Theo Powers DO Jan 28, 2020 12:06
--- NOTE | 2020-01-28 13:40 | Nephrology Progress Note ---
Assessment/Plan Problem List: (1) ESRD (end stage renal disease) on dialysis (2) Anemia (3) Hyperkalemia (4) Hypertensive kidney disease Assessment End-stage renal disease on hemodialysis via chest permacath, patient missed dialysis Presents with severe anemia and hyperkalemia Status post transfusion for anemia Status post insertion of a PICC line History of hypertension History of psych disease Plan January 27: Labs reviewed. Patient currently on dialysis. Tolerating well. Remains stable from renal standpoint to view while getting regular dialysis. Hemoglobin drifting down. Patient on Epogen. Transfusion as needed. January 26: Consultants appreciated. As per manager rn case patient refuses to go to the psych unit or correction and wants to be discharged to the street. According to the psychiatrist patient does not have capacity to make rational decision. If the patient does not receive dialysis on a regular basis he is clinical condition will deteriorated with . Dialysis ordered for tomorrow. Labs to be drawn prior to initiation of dialysis tomorrow. Continue to rest of management and per consultants. Medication list reviewed. I spent an additional 36 minutes on review of medical records ,consult notes, progress notes, imaging and available labs, and other clinical documentation. Frequent conversation with the case management Anahi and Dr. Powers and RN taking care of the patient today. January 25: Patient will receive dialysis today. Is only agreeable to draw blood work prior to dialysis from the access line. Further comments after lab results available. January 24: Today's labs pending. Will order dialysis for tomorrow. Blood pressure stable. Hemodialysis for hyperkalemia, was done on January 23. Adjust blood pressure medications Plus binders Continue to monitor her hemoglobin hematocrit and blood pressure Per orders Subjective ROS Limited/Unobtainable: No Constitutional: Reports: malaise, weakness Objective Objective Last 24 Hour Vital Signs Date Time Temp Pulse Resp B/P (MAP) Pulse Ox O2 Delivery O2 Flow Rate FiO2 01/28/20 12:00 97.5 81 19 154/81 (105) 99 01/28/20 09:00 Room Air 01/28/20 08:19 88 145/87 01/28/20 08:18 88 145/87 01/28/20 08:00 98.4 88 18 145/87 (106) 97 01/28/20 05:57 150/80 01/28/20 04:00 98.2 86 19 150/80 (103) 95 01/28/20 00:00 97.8 84 19 148/78 (101) 96 01/27/20 21:54 135/85 01/27/20 21:00 Room Air 01/27/20 20:00 98.1 80 20 135/85 (102) 97 01/27/20 16:00 82 01/27/20 15:53 97.7 78 18 135/80 (98) 96 01/27/20 13:51 138/78 Intake and Output 01/27/20 01/28/20 19:00 07:00 Intake Total 320 ml Output Total 500 ml Balance -180 ml Intake Oral 320 ml Output Urine Total 500 ml # Voids 1 2 Current Medications Medications (Trade) Dose Ordered Sig/Michelle Route PRN Reason Start Time Stop Time Status Last Admin Dose Admin Amlodipine Besylate (Norvasc) 10 mg DAILY ORAL 01/28/20 09:00 02/24/20 08:59 01/28/20 08:19 Ceftriaxone Sodium 1 gm/ Dextrose 55 ml @ 110 mls/hr Q24H IVPB 01/28/20 15:00 02/01/20 14:59 Chlorhexidine Gluconate (Karley-Hex 2%) 1 applic DAILY@2000 TOPIC 01/28/20 20:00 04/22/20 19:59 Clonidine HCl (Catapres tab) 0.2 mg Q8HR ORAL 01/27/20 22:00 04/23/20 08:59 01/28/20 05:57 Docusate Sodium (Colace) 100 mg TIAC ORAL 01/28/20 06:30 02/23/20 08:59 01/28/20 12:24 Ferrous Sulfate (Feosol) 325 mg THREE TIMES A DAY ORAL 01/28/20 09:00 04/23/20 08:59 01/28/20 12:24 Lorazepam (Ativan) 1 mg Q6H PRN ORAL For Anxiety 01/27/20 21:00 02/03/20 20:59 Magnesium Hydroxide (Mom) 30 ml HSPRN PRN ORAL Constipation 01/27/20 21:00 02/26/20 20:59 Metoprolol Tartrate (Lopressor) 100 mg EVERY 12 HOURS ORAL 01/27/20 21:00 04/23/20 08:59 01/28/20 08:18 Morphine Sulfate (Morphine Sulfate) 2 mg Q4H PRN IVP For Pain 6-8 01/27/20 21:00 02/03/20 20:59 01/28/20 09:57 Neomycin/ Polymyxin/ Bacitracin (Neomycin/Polymy/ Bacitr Oint) 1 applic Q8H PRN TOPIC for skin infection 01/27/20 21:00 04/26/20 20:59 Pantoprazole (Protonix) 40 mg EVERY 12 HOURS ORAL 01/27/20 21:00 02/23/20 08:59 01/28/20 08:19 Quetiapine Fumarate (SEROqueL) 100 mg TID ORAL 01/28/20 09:00 03/09/20 08:59 01/28/20 12:24 Sevelamer Carbonate (Renvela) 1,600 mg THREE TIMES A DAY ORAL 01/28/20 09:00 04/23/20 17:59 01/28/20 12:25 Tramadol HCl (Ultram) 50 mg Q6H PRN ORAL moderate to severe pain 01/27/20 21:00 01/30/20 20:59 Zinc Sulfate (Zinc Sulfate) 220 mg DAILY ORAL 01/28/20 09:00 04/23/20 08:59 01/28/20 08:19 Laboratory Tests 01/28/20 09:46: White Blood Count 7.4, Red Blood Count 2.36L, Hemoglobin 7.2L, Hematocrit 22.5L , Mean Corpuscular Volume 95, Mean Corpuscular Hemoglobin 30.4, Mean Corpuscular Hemoglobin Concent 31.9L, Red Cell Distribution Width 15.4H, Platelet Count 200, Mean Platelet Volume 6.0L, Neutrophils (%) (Auto) , Lymphocytes (%) (Auto) , Monocytes (%) (Auto) , Eosinophils (%) (Auto) , Basophils (%) (Auto) , Differential Total Cells Counted 100, Neutrophils % ( Manual) 76H, Lymphocytes % (Manual) 9L, Monocytes % (Manual) 7, Eosinophils % ( Manual) 8H, Basophils % (Manual) 0, Band Neutrophils 0, Platelet Estimate Adequate, Platelet Morphology Normal, Anisocytosis 1+, Sodium Level 141, Potassium Level 5.1, Chloride Level 105, Carbon Dioxide Level 24, Anion Gap 13, Blood Urea Nitrogen 71H, Creatinine 6.3H, Estimat Glomerular Filtration Rate 9.4 , Glucose Level 125H, Uric Acid 4.8, Calcium Level 7.8L, Phosphorus Level 6.9H, Magnesium Level 1.9, Iron Level 31L, Total Iron Binding Capacity 104L, Percent Iron Saturation 30, Unsaturated Iron Binding 73L, Ferritin 738H, Total Bilirubin 0.2, Aspartate Amino Transf (AST/SGOT) 13L, Alanine Aminotransferase ( ALT/SGPT) 8L, Alkaline Phosphatase 211H, Total Protein 6.9, Albumin 1.5L, Globulin 5.4, Albumin/Globulin Ratio 0.3L, Triglycerides Level 90, Cholesterol Level 115, LDL Cholesterol 65, HDL Cholesterol 34L, Cholesterol/HDL Ratio 3.4, Vitamin B12 Level 409, Folate 14.4 Height (Feet): 5 Height (Inches): 6.00 Weight (Pounds): 146 General Appearance: no apparent distress Cardiovascular: tachycardia - Rate 80s Respiratory/Chest: decreased breath sounds Abdomen: soft Objective No change Viktor Kang MD Jan 28, 2020 13:40
[2020-01-28] MEDS: cefTRIAXone 1 GM in D5W 55 ML IVPB SCH (16:30)
[2020-01-28] MEDS: Dyna-Hex 2% Top Sol 2oz TOPIC SCH (20:32)
--- NOTE | 2020-01-28 21:59 | Progress Note ---
DATE: 01/28/2020 SUBJECTIVE: A 49-year-old male with hyperkalemia. The patient continues to have altered mental status, confusion, and decline in cognition below his baseline. He does require inpatient treatment. He is very irritable and agitated. He has got a lot of mood lability, confusion, disorganized thought process, and decline in cognition below his baseline. That is why, his attending has requested daily psychiatric consultation. The patient has hyperkalemia. He also has wrist fracture, bacteremia, end-stage renal disease, on hemodialysis, anemia, hypertensive renal disease. MENTAL STATUS EXAMINATION: A 49-year-old male. Appearance is disheveled. Attitude, irritable and agitated. Affect is labile. Intellect poor. Mood, depressed and anxious. Motor activity, psychomotor agitation. Attention is poor. Orientation x2. Speech is low volume, slurred. Thought process, disorganized and illogical. Insight and judgment poor. DIAGNOSIS: Paranoid schizophrenia, exacerbation. PLAN: Plan for this patient is to treat him with the medication regimen consisting of Seroquel 100 mg 3 times a day to stabilize mood and also Ativan 1 mg every 6 hours p.r.n. anxiety, agitation. 20 minutes of cognitive behavioral therapy will help identify automatic negative thoughts and help convert his negative thoughts to more positive thoughts to reduce depression, anxiety, mood lability. Chart reviewed and discussed with staff. Maura Larios M.D. DR: NAMRATA JOB#: [id number] CC:
[2020-01-29] VITALS: BP 131/67
[2020-01-29] MEDS: Morphine Sulfate 2mg/ml Inj(IV/IM USE ONLY) IVP PRN ×6 (01:27→22:55)
[2020-01-29 04:00] VITALS: BP 140/72
[2020-01-29 04:45] LABS: HEMATOCRIT 24.1 % (42.0-52.0); HEMOGLOBIN 7.7 G/DL (14.2-18.0); MEAN CORPUSCULAR VOLUME 94 FL (80-99); PLATELET COUNT 182 K/UL (150-450); RED BLOOD COUNT 2.56 M/UL (4.70-6.10); RED CELL DISTRIBUTION WIDTH 15.2 % (11.6-14.8); WHITE BLOOD COUNT 6.5 K/UL (4.8-10.8)
[2020-01-29 04:58] LABS: ANION GAP 7 mmol/L (5-15); BLOOD UREA NITROGEN 43 mg/dL (7-18); CALCIUM 7.9 MG/DL (8.5-10.1); CARBON DIOXIDE 30 MMOL/L (21-32); CHLORIDE 106 MMOL/L (98-107); CREATININE 4.1 MG/DL (0.55-1.30); SODIUM 143 MMOL/L (136-145)
[2020-01-29] MEDS: Docusate 100mg cap ORAL SCH ×3 (06:23→17:24)
[2020-01-29] MEDS: cloNIDine 0.2mg Tab ORAL SCH ×3 (06:23→22:55)
--- NOTE | 2020-01-29 07:49 | General Progress Note ---
Assessment/Plan Problem List: (1) Hypertensive kidney disease ICD Codes: I12.9 - Hypertensive chronic kidney disease with stage 1 through stage 4 chronic kidney disease, or unspecified chronic kidney disease SNOMED: 64263958 (2) Anemia ICD Codes: D64.9 - Anemia, unspecified SNOMED: 719905383 Qualifiers: Qualified Codes: D64.9 - Anemia, unspecified (3) ESRD (end stage renal disease) on dialysis ICD Codes: N18.6 - End stage renal disease; Z99.2 - Dependence on renal dialysis SNOMED: 994315898 (4) Fracture, pelvis closed ICD Codes: S32.9XXA - Fracture of unspecified parts of lumbosacral spine and pelvis, initial encounter for closed fracture SNOMED: 03959903 Qualifiers: Qualified Codes: S32.89XK - Fracture of other parts of pelvis, subsequent encounter for fracture with nonunion (5) Hyperkalemia ICD Codes: E87.5 - Hyperkalemia; Z99.2 - Dependence on renal dialysis SNOMED: 91657756 (6) H/O bacteremia ICD Codes: Z87.898 - Personal history of other specified conditions SNOMED: 033358058 (7) Wrist fracture, right ICD Codes: S62.101A - Fracture of unspecified carpal bone, right wrist, initial encounter for closed fracture SNOMED: 793246200, 044895976 Qualifiers: Qualified Codes: S62.101D - Fracture of unspecified carpal bone, right wrist , subsequent encounter for fracture with routine healing (8) Schizophrenia ICD Codes: F20.9 - Schizophrenia, unspecified SNOMED: 32011462 Qualifiers: Qualified Codes: F20.9 - Schizophrenia, unspecified Status: stable, progressing Assessment/Plan: s/p one unit PRBC no active GIB no iron def fu stool ob HD per nephrology abx per ID GI procedures on hold for now fu cbc Subjective Allergies: Coded Allergies: No Known Allergies (Unverified , 01/23/20) Objective Last 24 Hour Vital Signs Date Time Temp Pulse Resp B/P (MAP) Pulse Ox O2 Delivery O2 Flow Rate FiO2 01/29/20 06:23 140/72 01/29/20 04:00 98.4 83 18 140/72 (94) 94 01/29/20 00:00 98.2 98 20 131/67 (88) 94 7/11/20 21:33 124/69 01/28/20 21:00 Room Air 01/28/20 20:31 99 124/69 01/28/20 20:00 97.9 99 20 124/69 (87) 94 01/28/20 16:40 98.4 91 19 155/80 (105) 95 01/28/20 16:00 98.2 82 20 159/80 (106) 96 01/28/20 14:11 156/78 01/28/20 12:00 97.5 81 19 154/81 (105) 99 01/28/20 09:00 Room Air 01/28/20 08:19 88 145/87 01/28/20 08:18 88 145/87 01/28/20 08:00 98.4 88 18 145/87 (106) 97 Intake and Output 01/28/20 01/29/20 19:00 07:00 Intake Total 750 ml 480 ml Output Total 1000 ml 1100 ml Balance -250 ml -620 ml Intake Oral 480 ml Other 750 ml Output Urine Total 1100 ml Hemodialysis UF 1000 ml # Voids 4 # Bowel Movements 1 Laboratory Tests 01/28/20 09:46: White Blood Count 7.4, Red Blood Count 2.36L, Hemoglobin 7.2L, Hematocrit 22.5L , Mean Corpuscular Volume 95, Mean Corpuscular Hemoglobin 30.4, Mean Corpuscular Hemoglobin Concent 31.9L, Red Cell Distribution Width 15.4H, Platelet Count 200, Mean Platelet Volume 6.0L, Neutrophils (%) (Auto) , Lymphocytes (%) (Auto) , Monocytes (%) (Auto) , Eosinophils (%) (Auto) , Basophils (%) (Auto) , Differential Total Cells Counted 100, Neutrophils % ( Manual) 76H, Lymphocytes % (Manual) 9L, Monocytes % (Manual) 7, Eosinophils % ( Manual) 8H, Basophils % (Manual) 0, Band Neutrophils 0, Platelet Estimate Adequate, Platelet Morphology Normal, Anisocytosis 1+, Sodium Level 141, Potassium Level 5.1, Chloride Level 105, Carbon Dioxide Level 24, Anion Gap 13, Blood Urea Nitrogen 71H, Creatinine 6.3H, Estimat Glomerular Filtration Rate 9.4 , Glucose Level 125H, Uric Acid 4.8, Calcium Level 7.8L, Phosphorus Level 6.9H, Magnesium Level 1.9, Iron Level 31L, Total Iron Binding Capacity 104L, Percent Iron Saturation 30, Unsaturated Iron Binding 73L, Ferritin 738H, Total Bilirubin 0.2, Aspartate Amino Transf (AST/SGOT) 13L, Alanine Aminotransferase ( ALT/SGPT) 8L, Alkaline Phosphatase 211H, Total Protein 6.9, Albumin 1.5L, Globulin 5.4, Albumin/Globulin Ratio 0.3L, Triglycerides Level 90, Cholesterol Level 115, LDL Cholesterol 65, HDL Cholesterol 34L, Cholesterol/HDL Ratio 3.4, Vitamin B12 Level 409, Folate 14.4 01/29/20 04:20: White Blood Count 6.5, Red Blood Count 2.56L, Hemoglobin 7.7L, Hematocrit 24.1L , Mean Corpuscular Volume 94, Mean Corpuscular Hemoglobin 30.1, Mean Corpuscular Hemoglobin Concent 31.9L, Red Cell Distribution Width 15.2H, Platelet Count 182, Mean Platelet Volume 6.3L, Neutrophils (%) (Auto) , Lymphocytes (%) (Auto) , Monocytes (%) (Auto) , Eosinophils (%) (Auto) , Basophils (%) (Auto) , Differential Total Cells Counted 100, Neutrophils % ( Manual) 75, Lymphocytes % (Manual) 14L, Monocytes % (Manual) 10, Eosinophils % ( Manual) 1, Basophils % (Manual) 0, Band Neutrophils 0, Platelet Estimate Adequate, Platelet Morphology Normal, Anisocytosis 1+, Sodium Level 143, Potassium Level 4.0, Chloride Level 106, Carbon Dioxide Level 30, Anion Gap 7, Blood Urea Nitrogen 43H, Creatinine 4.1H, Estimat Glomerular Filtration Rate 15.5, Glucose Level 96, Calcium Level 7.9L Height (Feet): 5 Height (Inches): 6.00 Weight (Pounds): 146 General Appearance: no apparent distress EENT: normal ENT inspection Neck: supple Cardiovascular: normal rate Respiratory/Chest: decreased breath sounds Abdomen: hypoactive bowel sounds Extremities: non-tender Edi Dhaliwal MD Jan 29, 2020 07:49
[2020-01-29 08:00] VITALS: BP 149/89
[2020-01-29] MEDS: Metoprolol Tartrate 100mg tab ORAL SCH ×2 (08:27→21:03)
[2020-01-29] MEDS: Zinc Sulfate 220mg ORAL SCH (08:27)
--- NOTE | 2020-01-29 10:01 | General Progress Note ---
Assessment/Plan Problem List: (1) Schizophrenia ICD Codes: F20.9 - Schizophrenia, unspecified SNOMED: 50246453 Qualifiers: Qualified Codes: F20.9 - Schizophrenia, unspecified (2) Hyperkalemia ICD Codes: E87.5 - Hyperkalemia; Z99.2 - Dependence on renal dialysis SNOMED: 08473870 (3) Fracture, pelvis closed ICD Codes: S32.9XXA - Fracture of unspecified parts of lumbosacral spine and pelvis, initial encounter for closed fracture SNOMED: 01531055 Qualifiers: Qualified Codes: S32.89XK - Fracture of other parts of pelvis, subsequent encounter for fracture with nonunion (4) ESRD (end stage renal disease) on dialysis ICD Codes: N18.6 - End stage renal disease; Z99.2 - Dependence on renal dialysis SNOMED: 722411394 (5) Anemia ICD Codes: D64.9 - Anemia, unspecified SNOMED: 046321982 Qualifiers: Qualified Codes: D64.9 - Anemia, unspecified Status: stable, progressing Assessment/Plan: pt diet transfuse prn dialysis prn cbc bmp am gi heme eval Subjective Constitutional: Reports: weakness Allergies: Coded Allergies: No Known Allergies (Unverified , 01/23/20) All Systems: reviewed and negative except above Subjective sleepy calm Objective Last 24 Hour Vital Signs Date Time Temp Pulse Resp B/P (MAP) Pulse Ox O2 Delivery O2 Flow Rate FiO2 01/29/20 09:00 Room Air 01/29/20 08:27 90 149/89 01/29/20 08:27 90 149/89 01/29/20 08:00 98.0 90 20 149/89 (109) 97 01/29/20 06:23 140/72 01/29/20 04:00 98.4 83 18 140/72 (94) 94 01/29/20 00:00 98.2 98 20 131/67 (88) 94 01/28/20 21:33 124/69 01/28/20 21:00 Room Air 01/28/20 20:31 99 124/69 01/28/20 20:00 97.9 99 20 124/69 (87) 94 01/28/20 16:40 98.4 91 19 155/80 (105) 95 01/28/20 16:00 98.2 82 20 159/80 (106) 96 01/28/20 14:11 156/78 01/28/20 12:00 97.5 81 19 154/81 (105) 99 Intake and Output 01/28/20 01/29/20 19:00 07:00 Intake Total 750 ml 480 ml Output Total 1000 ml 1100 ml Balance -250 ml -620 ml Intake Oral 480 ml Other 750 ml Output Urine Total 1100 ml Hemodialysis UF 1000 ml # Voids 4 # Bowel Movements 1 Laboratory Tests 01/29/20 04:20: White Blood Count 6.5, Red Blood Count 2.56L, Hemoglobin 7.7L, Hematocrit 24.1L , Mean Corpuscular Volume 94, Mean Corpuscular Hemoglobin 30.1, Mean Corpuscular Hemoglobin Concent 31.9L, Red Cell Distribution Width 15.2H, Platelet Count 182, Mean Platelet Volume 6.3L, Neutrophils (%) (Auto) , Lymphocytes (%) (Auto) , Monocytes (%) (Auto) , Eosinophils (%) (Auto) , Basophils (%) (Auto) , Differential Total Cells Counted 100, Neutrophils % ( Manual) 75, Lymphocytes % (Manual) 14L, Monocytes % (Manual) 10, Eosinophils % ( Manual) 1, Basophils % (Manual) 0, Band Neutrophils 0, Platelet Estimate Adequate, Platelet Morphology Normal, Anisocytosis 1+, Sodium Level 143, Potassium Level 4.0, Chloride Level 106, Carbon Dioxide Level 30, Anion Gap 7, Blood Urea Nitrogen 43H, Creatinine 4.1H, Estimat Glomerular Filtration Rate 15.5, Glucose Level 96, Calcium Level 7.9L Height (Feet): 5 Height (Inches): 6.00 Weight (Pounds): 146 General Appearance: lethargic EENT: normal ENT inspection Neck: normal alignment Cardiovascular: normal peripheral pulses, normal rate, regular rhythm Respiratory/Chest: chest wall non-tender, lungs clear, normal breath sounds Abdomen: normal bowel sounds, non tender, soft Extremities: normal inspection Edema: no edema noted Arm (L), no edema noted Arm (R), no edema noted Leg (L), no edema noted Leg (R), no edema noted Pedal (L), no edema noted Pedal (R), no edema noted Generalized Neurologic: motor weakness Skin: normal pigmentation, warm/dry Theo Powers DO Jan 29, 2020 10:01
[2020-01-29 12:00] VITALS: BP 137/86
--- NOTE | 2020-01-29 13:31 | Nephrology Progress Note ---
Assessment/Plan Problem List: (1) ESRD (end stage renal disease) on dialysis (2) Anemia (3) Hyperkalemia (4) Hypertensive kidney disease Assessment End-stage renal disease on hemodialysis via chest permacath, patient missed dialysis Presents with severe anemia and hyperkalemia Status post transfusion for anemia Status post insertion of a PICC line History of hypertension History of psych disease Plan January 28: Lab reviewed. Dialyzed yesterday. Next hemodialysis tomorrow. January 27: Labs reviewed. Patient currently on dialysis. Tolerating well. Remains stable from renal standpoint to view while getting regular dialysis. Hemoglobin drifting down. Patient on Epogen. Transfusion as needed. January 26: Consultants appreciated. As per rn case management patient refuses to go to the psych unit or [facility] and wants to be discharged to the street. According to the psychiatrist patient does not have capacity to make rational decision. If the patient does not receive dialysis on a regular basis he is clinical condition will deteriorated with . Dialysis ordered for tomorrow. Labs to be drawn prior to initiation of dialysis tomorrow. Continue to rest of management and per consultants. Medication list reviewed. I spent an additional 36 minutes on review of medical records ,consult notes, progress notes, imaging and available labs, and other clinical documentation. Frequent conversation with the case management Anahi and Dr. Powers and RN taking care of the patient today. January 25: Patient will receive dialysis today. Is only agreeable to draw blood work prior to dialysis from the access line. Further comments after lab results available. January 24: Today's labs pending. Will order dialysis for tomorrow. Blood pressure stable. Hemodialysis for hyperkalemia, was done on January 23. Adjust blood pressure medications Plus binders Continue to monitor her hemoglobin hematocrit and blood pressure Per orders Subjective ROS Limited/Unobtainable: No Objective Objective Last 24 Hour Vital Signs Date Time Temp Pulse Resp B/P (MAP) Pulse Ox O2 Delivery O2 Flow Rate FiO2 01/29/20 12:00 97.9 89 18 137/86 (103) 98 01/29/20 09:00 Room Air 01/29/20 08:27 90 149/89 01/29/20 08:27 90 149/89 01/29/20 08:00 98.0 90 20 149/89 (109) 97 01/29/20 06:23 140/72 01/29/20 04:00 98.4 83 18 140/72 (94) 94 01/29/20 00:00 98.2 98 20 131/67 (88) 94 01/28/20 21:33 124/69 01/28/20 21:00 Room Air 01/28/20 20:31 99 124/69 01/28/20 20:00 97.9 99 20 124/69 (87) 94 01/28/20 16:40 98.4 91 19 155/80 (105) 95 01/28/20 16:00 98.2 82 20 159/80 (106) 96 01/28/20 14:11 156/78 Intake and Output 01/28/20 01/29/20 19:00 07:00 Intake Total 750 ml 480 ml Output Total 1000 ml 1100 ml Balance -250 ml -620 ml Intake Oral 480 ml Other 750 ml Output Urine Total 1100 ml Hemodialysis UF 1000 ml # Voids 4 # Bowel Movements 1 Laboratory Tests 01/29/20 04:20: White Blood Count 6.5, Red Blood Count 2.56L, Hemoglobin 7.7L, Hematocrit 24.1L , Mean Corpuscular Volume 94, Mean Corpuscular Hemoglobin 30.1, Mean Corpuscular Hemoglobin Concent 31.9L, Red Cell Distribution Width 15.2H, Platelet Count 182, Mean Platelet Volume 6.3L, Neutrophils (%) (Auto) , Lymphocytes (%) (Auto) , Monocytes (%) (Auto) , Eosinophils (%) (Auto) , Basophils (%) (Auto) , Differential Total Cells Counted 100, Neutrophils % ( Manual) 75, Lymphocytes % (Manual) 14L, Monocytes % (Manual) 10, Eosinophils % ( Manual) 1, Basophils % (Manual) 0, Band Neutrophils 0, Platelet Estimate Adequate, Platelet Morphology Normal, Anisocytosis 1+, Sodium Level 143, Potassium Level 4.0, Chloride Level 106, Carbon Dioxide Level 30, Anion Gap 7, Blood Urea Nitrogen 43H, Creatinine 4.1H, Estimat Glomerular Filtration Rate 15.5, Glucose Level 96, Calcium Level 7.9L Height (Feet): 5 Height (Inches): 6.00 Weight (Pounds): 146 General Appearance: no apparent distress Objective No change Viktor Kang MD Jan 29, 2020 13:31
[2020-01-29] MEDS: cefTRIAXone 1 GM in D5W 55 ML IVPB SCH (14:21)
[2020-01-29 16:00] VITALS: BP 135/76
--- NOTE | 2020-01-29 16:14 | Progress Note ---
DATE: 01/29/2020 SUBJECTIVE: This is a 49-year-old male patient. He has schizophrenia. He has altered mental status, confusion, disorganized thought process, poor insight. MENTAL STATUS EXAMINATION: This is a 49-year-old male. Appearance is disheveled. Attitude, irritable and agitated. Affect is labile. Intellect poor. Mood, depressed and anxious. Motor activity, psychomotor agitation. Attention span is poor. Orientation x2. Speech is low volume, slurred. Thought process disorganized and illogical. Insight and judgement is poor. DIAGNOSIS: Paranoid schizophrenia with acute exacerbation. PLAN: Treat him with medication regimen consisting of Seroquel at a dose of mg three times a day. A 20 minutes of cognitive behavioral therapy to help him identify automatic negative thoughts and help convert his negative thoughts to more positive thoughts to reduce depression, anxiety, mood lability. Chart reviewed and discussed with staff. Seen and assessed at bedside. A 20 minutes of reality-based supportive psychotherapy provided. Maura Larios M.D. DR: Rito JOB#: [id number] CC:
[2020-01-29 20:00] VITALS: BP 155/84
[2020-01-29] MEDS: Dyna-Hex 2% Top Sol 2oz TOPIC SCH (21:03)
[2020-01-30] VITALS: BP 146/77
[2020-01-30] MEDS: Morphine Sulfate 2mg/ml Inj(IV/IM USE ONLY) IVP PRN ×5 (03:09→21:43)
[2020-01-30 04:00] VITALS: BP 138/79
[2020-01-30] MEDS: Docusate 100mg cap ORAL SCH ×3 (06:22→16:30)
[2020-01-30] MEDS: cloNIDine 0.2mg Tab ORAL SCH ×3 (06:22→21:45)
[2020-01-30 08:00] VITALS: BP 133/74
[2020-01-30] MEDS: Zinc Sulfate 220mg ORAL SCH (08:55)
[2020-01-30] MEDS: Metoprolol Tartrate 100mg tab ORAL SCH ×2 (08:57→21:46)
--- NOTE | 2020-01-30 09:24 | Nephrology Progress Note ---
Assessment/Plan Problem List: (1) ESRD (end stage renal disease) on dialysis (2) Anemia (3) Hyperkalemia (4) Hypertensive kidney disease Assessment End-stage renal disease on hemodialysis via chest permacath, patient missed dialysis Presents with severe anemia and hyperkalemia Status post transfusion for anemia Status post insertion of a PICC line History of hypertension History of psych disease Plan January 29: Lab reviewed. Hemodialysis today. Discharge planning in process. January 28: Lab reviewed. Dialyzed yesterday. Next hemodialysis tomorrow. January 27: Labs reviewed. Patient currently on dialysis. Tolerating well. Remains stable from renal standpoint to view while getting regular dialysis. Hemoglobin drifting down. Patient on Epogen. Transfusion as needed. January 26: Consultants appreciated. As per case sealer patient refuses to go to the psych unit or [facility] and wants to be discharged to the street. According to the psychiatrist patient does not have capacity to make rational decision. If the patient does not receive dialysis on a regular basis he is clinical condition will deteriorated with . Dialysis ordered for tomorrow. Labs to be drawn prior to initiation of dialysis tomorrow. Continue to rest of management and per consultants. Medication list reviewed. I spent an additional 36 minutes on review of medical records ,consult notes, progress notes, imaging and available labs, and other clinical documentation. Frequent conversation with the case management Anahi and Dr. Powers and RN taking care of the patient today. January 25: Patient will receive dialysis today. Is only agreeable to draw blood work prior to dialysis from the access line. Further comments after lab results available. January 24: Today's labs pending. Will order dialysis for tomorrow. Blood pressure stable. Hemodialysis for hyperkalemia, was done on January 23. Adjust blood pressure medications Plus binders Continue to monitor her hemoglobin hematocrit and blood pressure Per orders Subjective ROS Limited/Unobtainable: No Constitutional: Reports: malaise, weakness Objective Objective Last 24 Hour Vital Signs Date Time Temp Pulse Resp B/P (MAP) Pulse Ox O2 Delivery O2 Flow Rate FiO2 01/30/20 08:57 81 133/74 01/30/20 08:57 81 133/74 01/30/20 08:00 98.4 81 20 133/74 (93) 96 01/30/20 06:22 138/79 01/30/20 04:00 98.3 78 20 138/79 (98) 94 01/30/20 00:00 98.2 76 18 146/77 (100) 96 01/29/20 22:55 155/84 01/29/20 21:03 83 155/84 01/29/20 21:00 Room Air 01/29/20 20:00 98.1 83 17 155/84 (107) 95 01/29/20 19:16 98.3 01/29/20 16:00 98.3 87 19 135/76 (95) 97 01/29/20 14:07 137/86 01/29/20 12:00 97.9 89 18 137/86 (103) 98 Intake and Output 01/29/20 01/30/20 19:00 07:00 Intake Total 500 ml 510 ml Output Total 350 ml 950 ml Balance 150 ml -440 ml Intake Oral 500 ml 510 ml Output Urine Total 350 ml 950 ml # Voids 2 3 Current Medications Medications (Trade) Dose Ordered Sig/Michelle Route PRN Reason Start Time Stop Time Status Last Admin Dose Admin Amlodipine Besylate (Norvasc) 10 mg DAILY ORAL 01/28/20 09:00 02/24/20 08:59 01/29/20 08:27 Chlorhexidine Gluconate (Kalrey-Hex 2%) 1 applic DAILY@1999 TOPIC 01/28/20 20:00 04/22/20 19:59 01/29/20 21:03 Clonidine HCl (Catapres tab) 0.2 mg Q8HR ORAL 01/27/20 22:00 04/23/20 08:59 01/30/20 06:22 Docusate Sodium (Colace) 100 mg TIAC ORAL 01/28/20 06:30 02/23/20 08:59 01/30/20 06:22 Epoetin Pineda (Epoetin Pineda(ESRD on dialysis)) 10,000 unit THU-THU-[id number] SUBQ 01/30/20 21:00 04/29/20 20:59 Lorazepam (Ativan) 1 mg Q6H PRN ORAL For Anxiety 01/27/20 21:00 02/03/20 20:59 Magnesium Hydroxide (Mom) 30 ml HSPRN PRN ORAL Constipation 01/27/20 21:00 02/26/20 20:59 01/29/20 22:55 Metoprolol Tartrate (Lopressor) 100 mg EVERY 12 HOURS ORAL 01/27/20 21:00 04/23/20 08:59 01/29/20 21:03 Morphine Sulfate (Morphine Sulfate) 2 mg Q4H PRN IVP For Pain 6-8 01/27/20 21:00 02/03/20 20:59 01/30/20 08:55 Neomycin/ Polymyxin/ Bacitracin (Neomycin/Polymy/ Bacitr Oint) 1 applic Q8H PRN TOPIC for skin infection 01/27/20 21:00 04/26/20 20:59 Pantoprazole (Protonix) 40 mg EVERY 12 HOURS ORAL 01/27/20 21:00 02/23/20 08:59 01/30/20 08:55 Quetiapine Fumarate (SEROqueL) 100 mg TID ORAL 01/28/20 09:00 03/09/20 08:59 01/29/20 17:24 Sevelamer Carbonate (Renvela) 1,600 mg THREE TIMES A DAY ORAL 01/28/20 09:00 04/23/20 17:59 01/30/20 08:56 Tramadol HCl (Ultram) 50 mg Q6H PRN ORAL moderate to severe pain 01/27/20 21:00 01/30/20 20:59 Zinc Sulfate (Zinc Sulfate) 220 mg DAILY ORAL 01/28/20 09:00 04/23/20 08:59 01/30/20 08:55 Laboratory Tests 01/30/20 04:43: Stool Occult Blood [Pending] Height (Feet): 5 Height (Inches): 6.00 Weight (Pounds): 146 General Appearance: no apparent distress Cardiovascular: normal rate Respiratory/Chest: decreased breath sounds Abdomen: soft Objective No change Viktor Kang MD Jan 30, 2020 09:24
--- NOTE | 2020-01-30 09:59 | Progress Note ---
DATE: 01/30/2020 SUBJECTIVE: This is a 49-year-old male with hyperkalemia. He had lot of altered mental status, confusion, mood lability, decline in cognition below his baseline. That is why, he does require inpatient treatment at this time. He is very irritable, agitated, extremely mood labile, and disorganized. MENTAL STATUS EXAMINATION: This is a 49-year-old male. Appearance is disheveled. Attitude, irritable and agitated. Affect, guarded and restricted. Intellect, poor. Mood, depressed and anxious. Motor activity, psychomotor agitation. Attention span is poor. Orientation x2. Speech is pressured. Thought process, disorganized and illogical. Insight and judgment is poor. DIAGNOSIS: Paranoid schizophrenia, acute exacerbation. PLAN: My plan for this patient is I am going to treat this patient with a medication regimen of Seroquel at a dose of 100 mg three times a day. A 20 minutes of cognitive behavioral therapy will help him identify his automatic negative thoughts and help convert those negative thoughts to more positive thoughts to reduce depression, anxiety, and mood lability. Chart reviewed. Discussed with staff. Seen and assessed in his room. Maura Larios M.D. DR: ADRI JOB#: [id number] CC:
--- NOTE | 2020-01-30 10:23 | General Progress Note ---
Assessment/Plan Problem List: (1) Schizophrenia ICD Codes: F20.9 - Schizophrenia, unspecified SNOMED: 00740867 Qualifiers: Qualified Codes: F20.9 - Schizophrenia, unspecified (2) Hyperkalemia ICD Codes: E87.5 - Hyperkalemia; Z99.2 - Dependence on renal dialysis SNOMED: 07120154 (3) Fracture, pelvis closed ICD Codes: S32.9XXA - Fracture of unspecified parts of lumbosacral spine and pelvis, initial encounter for closed fracture SNOMED: 21949742 Qualifiers: Qualified Codes: S32.89XK - Fracture of other parts of pelvis, subsequent encounter for fracture with nonunion (4) ESRD (end stage renal disease) on dialysis ICD Codes: N18.6 - End stage renal disease; Z99.2 - Dependence on renal dialysis SNOMED: 961575191 (5) Anemia ICD Codes: D64.9 - Anemia, unspecified SNOMED: 773929423 Qualifiers: Qualified Codes: D64.9 - Anemia, unspecified Status: stable, progressing Assessment/Plan: pt diet transfuse prn dialysis prn cbc bmp am gi heme eval psyc transfer if all clear Subjective Constitutional: Reports: weakness Allergies: Coded Allergies: No Known Allergies (Unverified , 01/23/20) All Systems: reviewed and negative except above Subjective sleepy calm Objective Last 24 Hour Vital Signs Date Time Temp Pulse Resp B/P (MAP) Pulse Ox O2 Delivery O2 Flow Rate FiO2 01/30/20 08:57 81 133/74 01/30/20 08:57 81 133/74 01/30/20 08:00 98.4 81 20 133/74 (93) 96 01/30/20 06:22 138/79 01/30/20 04:00 98.3 78 20 138/79 (98) 94 01/30/20 00:00 98.2 76 18 146/77 (100) 96 01/29/20 22:55 155/84 01/29/20 21:03 83 155/84 01/29/20 21:00 Room Air 01/29/20 20:00 98.1 83 17 155/84 (107) 95 01/29/20 19:16 98.3 01/29/20 16:00 98.3 87 19 135/76 (95) 97 01/29/20 14:07 137/86 01/29/20 12:00 97.9 89 18 137/86 (103) 98 Intake and Output 01/29/20 01/30/20 19:00 07:00 Intake Total 500 ml 510 ml Output Total 350 ml 950 ml Balance 150 ml -440 ml Intake Oral 500 ml 510 ml Output Urine Total 350 ml 950 ml # Voids 2 3 Laboratory Tests 01/30/20 04:43: Stool Occult Blood [Pending] Height (Feet): 5 Height (Inches): 6.00 Weight (Pounds): 146 General Appearance: lethargic EENT: normal ENT inspection Neck: normal alignment Cardiovascular: normal peripheral pulses, normal rate, regular rhythm Respiratory/Chest: chest wall non-tender, lungs clear, normal breath sounds Abdomen: normal bowel sounds, non tender, soft Extremities: normal inspection Edema: no edema noted Arm (L), no edema noted Arm (R), no edema noted Leg (L), no edema noted Leg (R), no edema noted Pedal (L), no edema noted Pedal (R), no edema noted Generalized Neurologic: motor weakness Skin: normal pigmentation, warm/dry Theo Powers DO Jan 30, 2020 10:23
--- NOTE | 2020-01-30 10:47 | General Progress Note ---
Assessment/Plan Problem List: (1) Hypertensive kidney disease ICD Codes: I12.9 - Hypertensive chronic kidney disease with stage 1 through stage 4 chronic kidney disease, or unspecified chronic kidney disease SNOMED: 51397342 (2) Anemia ICD Codes: D64.9 - Anemia, unspecified SNOMED: 652971007 Qualifiers: Qualified Codes: D64.9 - Anemia, unspecified (3) ESRD (end stage renal disease) on dialysis ICD Codes: N18.6 - End stage renal disease; Z99.2 - Dependence on renal dialysis SNOMED: 877222999 (4) Fracture, pelvis closed ICD Codes: S32.9XXA - Fracture of unspecified parts of lumbosacral spine and pelvis, initial encounter for closed fracture SNOMED: 11513631 Qualifiers: Qualified Codes: S32.89XK - Fracture of other parts of pelvis, subsequent encounter for fracture with nonunion (5) Hyperkalemia ICD Codes: E87.5 - Hyperkalemia; Z99.2 - Dependence on renal dialysis SNOMED: 72207030 (6) H/O bacteremia ICD Codes: Z87.898 - Personal history of other specified conditions SNOMED: 709856974 (7) Wrist fracture, right ICD Codes: S62.101A - Fracture of unspecified carpal bone, right wrist, initial encounter for closed fracture SNOMED: 279757520, 081668905 Qualifiers: Qualified Codes: S62.101D - Fracture of unspecified carpal bone, right wrist , subsequent encounter for fracture with routine healing (8) Schizophrenia ICD Codes: F20.9 - Schizophrenia, unspecified SNOMED: 06181887 Qualifiers: Qualified Codes: F20.9 - Schizophrenia, unspecified Status: stable, progressing Assessment/Plan: s/p one unit PRBC no active GIB no iron def fu stool ob HD per nephrology abx per ID GI procedures on hold for now fu cbc Subjective Allergies: Coded Allergies: No Known Allergies (Unverified , 01/23/20) Objective Last 24 Hour Vital Signs Date Time Temp Pulse Resp B/P (MAP) Pulse Ox O2 Delivery O2 Flow Rate FiO2 01/30/20 09:00 Room Air 01/30/20 08:57 81 133/74 01/30/20 08:57 81 133/74 01/30/20 08:00 98.4 81 20 133/74 (93) 96 01/30/20 06:22 138/79 01/30/20 04:00 98.3 78 20 138/79 (98) 94 01/30/20 00:00 98.2 76 18 146/77 (100) 96 01/29/20 22:55 155/84 01/29/20 21:03 83 155/84 01/29/20 21:00 Room Air 01/29/20 20:00 98.1 83 17 155/84 (107) 95 01/29/20 19:16 98.3 01/29/20 16:00 98.3 87 19 135/76 (95) 97 01/29/20 14:07 137/86 01/29/20 12:00 97.9 89 18 137/86 (103) 98 Intake and Output 01/29/20 01/30/20 19:00 07:00 Intake Total 500 ml 510 ml Output Total 350 ml 950 ml Balance 150 ml -440 ml Intake Oral 500 ml 510 ml Output Urine Total 350 ml 950 ml # Voids 2 3 Laboratory Tests 01/30/20 04:43: Stool Occult Blood [Pending] Height (Feet): 5 Height (Inches): 6.00 Weight (Pounds): 146 General Appearance: no apparent distress EENT: normal ENT inspection Neck: supple Cardiovascular: normal rate Respiratory/Chest: decreased breath sounds Abdomen: soft, hypoactive bowel sounds Extremities: non-tender Edi Dhaliwal MD Jan 30, 2020 10:47
--- NOTE | 2020-01-30 11:31 | Infectious Diseases Prog Note ---
Assessment/Plan Assessment: fever; SP No leukocytosis -u/a no pyuria -refused blood cultures PRobable PNA- COVID neg x2 -01/27 SARS-COV2 PCR neg -01/23 CXR: Bilateral right greater than left infiltrates versus edema. Right- sided pleural thickening versus fluid -01/19 COVID test (at [facility])- reported negative Acute on chronic anemia Hyperkalemia ?report of bacteremia- I can't confirm this. at the moment, patient afebrile, no leukocytosis- no signs of infection. will obtain Bcx x2 01/22 failed attempted PICC line placement; Mid line placed instead COVID19 neg on 01/07 at [place]; a repeat test was sent on 01/20 schizophrenia ESRD on HD HTN smoker pelvic fracture s/p hip hardware placement -01/23/20 hip xray: Positive for bilateral pubic fracture, as described. Fracture lines appear acute and displaced, but presence of proliferative change may indicate a chronic component. Correlate with clinical history Plan: - Continue to monitor off abx -01/28 SP Ceftriaxone #5 -f/u cx -Monitor CBC/CMP, temperatures -COVID neg x2; ok to dc isolation -renal f/u Thank you for this consultation. Will continue to follow along with you. Discussed with RN. Subjective Allergies: Coded Allergies: No Known Allergies (Unverified , 01/23/20) afebrile at [facility] no leukocytosis Objective Last 24 Hour Vital Signs Date Time Temp Pulse Resp B/P (MAP) Pulse Ox O2 Delivery O2 Flow Rate FiO2 01/30/20 09:00 Room Air 01/30/20 08:57 81 133/74 01/30/20 08:57 81 133/74 01/30/20 08:00 98.4 81 20 133/74 (93) 96 01/30/20 06:22 138/79 01/30/20 04:00 98.3 78 20 138/79 (98) 94 01/30/20 00:00 98.2 76 18 146/77 (100) 96 01/29/20 22:55 155/84 01/29/20 21:03 83 155/84 01/29/20 21:00 Room Air 01/29/20 20:00 98.1 83 17 155/84 (107) 95 01/29/20 19:16 98.3 01/29/20 16:00 98.3 87 19 135/76 (95) 97 01/29/20 14:07 137/86 01/29/20 12:00 97.9 89 18 137/86 (103) 98 Height (Feet): 5 Height (Inches): 6.00 Weight (Pounds): 146 General Appearance: no distress EENT: normal ENT inspection Neck: normal alignment Cardiovascular: normal peripheral pulses, normal rate, regular rhythm Respiratory/Chest: chest wall non-tender, lungs clear, normal breath sounds Abdomen: normal bowel sounds, non tender, soft Extremities: normal inspection Neurologic: motor weakness Skin: normal pigmentation, warm/dry Microbiology Date/Time Source Procedure Growth Status 01/28/20 10:30 Nasopharynx Coronavirus COVID-19 PCR ([facility]) - Final Complete 01/28/20 07:45 Sputum Expectorated Gram Stain - Final Resulted 01/28/20 07:45 Sputum Culture - Preliminary Yeast Species Resulted Laboratory Tests Test 01/30/20 04:43 Stool Occult Blood Pending Current Medications Medications (Trade) Dose Ordered Sig/Michelle Route PRN Reason Start Time Stop Time Status Last Admin Dose Admin Amlodipine Besylate (Norvasc) 10 mg DAILY ORAL 01/28/20 09:00 02/24/20 08:59 01/29/20 08:27 Ceftriaxone Sodium 1 gm/ Dextrose 55 ml @ 110 mls/hr Q24H IVPB 01/28/20 15:00 02/01/20 14:59 01/29/20 14:21 Chlorhexidine Gluconate (Karley-Hex 2%) 1 applic DAILY@2000 TOPIC 01/28/20 20:00 04/22/20 19:59 01/29/20 21:03 Clonidine HCl (Catapres tab) 0.2 mg Q8HR ORAL 01/27/20 22:00 04/23/20 08:59 01/30/20 06:22 Docusate Sodium (Colace) 100 mg TIAC ORAL 01/28/20 06:30 02/23/20 08:59 01/30/20 06:22 Epoetin Pineda (Epoetin Pineda(ESRD on dialysis)) 10,000 unit MON-WED-THU SUBQ 01/30/20 21:00 04/29/20 20:59 Lorazepam (Ativan) 1 mg Q6H PRN ORAL For Anxiety 01/27/20 21:00 02/03/20 20:59 Magnesium Hydroxide (Mom) 30 ml HSPRN PRN ORAL Constipation 01/27/20 21:00 02/26/20 20:59 01/29/20 22:55 Metoprolol Tartrate (Lopressor) 100 mg EVERY 12 HOURS ORAL 01/27/20 21:00 04/23/20 08:59 01/29/20 21:03 Morphine Sulfate (Morphine Sulfate) 2 mg Q4H PRN IVP For Pain 6-8 01/27/20 21:00 02/03/20 20:59 01/30/20 08:55 Neomycin/ Polymyxin/ Bacitracin (Neomycin/Polymy/ Bacitr Oint) 1 applic Q8H PRN TOPIC for skin infection 01/27/20 21:00 04/26/20 20:59 Pantoprazole (Protonix) 40 mg EVERY 12 HOURS ORAL 01/27/20 21:00 02/23/20 08:59 01/30/20 08:55 Quetiapine Fumarate (SEROqueL) 100 mg TID ORAL 01/28/20 09:00 03/09/20 08:59 01/30/20 08:55 Sevelamer Carbonate (Renvela) 1,600 mg THREE TIMES A DAY ORAL 01/28/20 09:00 04/23/20 17:59 01/30/20 08:56 Tramadol HCl (Ultram) 50 mg Q6H PRN ORAL moderate to severe pain 01/27/20 21:00 01/30/20 20:59 Zinc Sulfate (Zinc Sulfate) 220 mg DAILY ORAL 01/28/20 09:00 04/23/20 08:59 01/30/20 08:55 Michelle Morales M.D. Jan 30, 2020 11:31
[2020-01-30 12:00] VITALS: BP 162/81
[2020-01-30 14:09] LABS: ANION GAP 10 mmol/L (5-15); BLOOD UREA NITROGEN 60 mg/dL (7-18); CALCIUM 7.9 MG/DL (8.5-10.1); CARBON DIOXIDE 26 MMOL/L (21-32); CHLORIDE 105 MMOL/L (98-107); CREATININE 5.7 MG/DL (0.55-1.30); POTASSIUM 4.8 MMOL/L (3.5-5.1); SODIUM 141 MMOL/L (136-145)
[2020-01-30 15:25] LABS: BASOPHILS % (AUTO) 1.3 % (0.0-2.0); EOSINOPHILS % (AUTO) 7.2 % (0.0-3.0); HEMATOCRIT 26.4 % (42.0-52.0); HEMOGLOBIN 8.3 G/DL (14.2-18.0); LYMPHOCYTES % (AUTO) 18.2 % (20.0-45.0); MEAN CORPUSCULAR VOLUME 95 FL (80-99); MONOCYTES % (AUTO) 4.8 % (1.0-10.0); NEUTROPHILS % (AUTO) 68.6 % (45.0-75.0); PLATELET COUNT 209 K/UL (150-450); RED BLOOD COUNT 2.78 M/UL (4.70-6.10); RED CELL DISTRIBUTION WIDTH 15.2 % (11.6-14.8)
[2020-01-30 16:00] VITALS: BP 160/86
[2020-01-30 20:00] VITALS: BP 142/83
[2020-01-30] MEDS: Dyna-Hex 2% Top Sol 2oz TOPIC SCH (21:43)
[2020-01-30] MEDS: Epoetin Alfa-EPBX(ESRD on dialysis)10,000 unit/ml vial SUBQ SCH (21:46)
[2020-01-31] VITALS: BP 149/87
[2020-01-31] MEDS: Morphine Sulfate 2mg/ml Inj(IV/IM USE ONLY) IVP PRN ×5 (02:45→19:44)
[2020-01-31 04:00] VITALS: BP 137/95
[2020-01-31] MEDS: Docusate 100mg cap ORAL SCH ×3 (06:30→15:32)
[2020-01-31] MEDS: cloNIDine 0.2mg Tab ORAL SCH ×3 (06:31→22:49)
[2020-01-31 08:00] VITALS: BP 130/89
[2020-01-31] MEDS: Metoprolol Tartrate 100mg tab ORAL SCH ×2 (08:47→20:45)
[2020-01-31] MEDS: Zinc Sulfate 220mg ORAL SCH (08:47)
--- NOTE | 2020-01-31 10:44 | Hematology/Onc Progress Note ---
Assessment/Plan Assessment/Plan # Anemia of chronic disease due to underlying chronic medical issues, multifactorial v Gi bleed --> Anemia workup has been ordered, rule out gi bleed --> No evidence of hemolysis is noted, peripheral smear has been reviewed. --> Hgb goal >7. Transfuse prn. --> Epogen started given esrd --> Medications have been reviewed --> low threshold for gi evaluation in case has occult + --> bone marrow biopsy is not indicated given the other more likely causes -> hgb trend 7.2-->8.3 --> s/p one unit PRBC 01/29 # ESRD on hd --> as per renal --> with permacath noted right chest # Hyperkalemia -> adjustment per renal # Status post insertion of a PICC line # History of hypertension # History of psych disease The timing of this note does not necessarily reflect the time of the patient was seen. Greatly appreciate consultation. Subjective Allergies: Coded Allergies: No Known Allergies (Unverified , 01/23/20) Subjective 01/30 with permacath, refusing dc to snf, labs refused this am as well Objective Objective Current Medications Medications (Trade) Dose Ordered Sig/Michelle Route PRN Reason Start Time Stop Time Status Last Admin Dose Admin Amlodipine Besylate (Norvasc) 10 mg DAILY ORAL 01/28/20 09:00 02/24/20 08:59 01/31/20 08:48 Chlorhexidine Gluconate (Karley-Hex 2%) 1 applic DAILY@1999 TOPIC 01/28/20 20:00 04/22/20 19:59 01/30/20 21:43 Clonidine HCl (Catapres tab) 0.2 mg Q8HR ORAL 01/27/20 22:00 04/23/20 08:59 01/31/20 06:31 Docusate Sodium (Colace) 100 mg TIAC ORAL 01/28/20 06:30 02/23/20 08:59 01/30/20 06:22 Epoetin Pineda (Epoetin Pineda(ESRD on dialysis)) 10,000 unit THU-WED-THU SUBQ 01/30/20 21:00 04/29/20 20:59 01/30/20 21:46 Lorazepam (Ativan) 1 mg Q6H PRN ORAL For Anxiety 01/27/20 21:00 02/03/20 20:59 Magnesium Hydroxide (Mom) 30 ml HSPRN PRN ORAL Constipation 01/27/20 21:00 02/26/20 20:59 01/29/20 22:55 Metoprolol Tartrate (Lopressor) 100 mg EVERY 12 HOURS ORAL 01/27/20 21:00 04/23/20 08:59 01/31/20 08:47 Morphine Sulfate (Morphine Sulfate) 2 mg Q4H PRN IVP For Pain 6-8 01/27/20 21:00 02/03/20 20:59 01/31/20 06:34 Neomycin/ Polymyxin/ Bacitracin (Neomycin/Polymy/ Bacitr Oint) 1 applic Q8H PRN TOPIC for skin infection 01/27/20 21:00 04/26/20 20:59 Pantoprazole (Protonix) 40 mg EVERY 12 HOURS ORAL 01/27/20 21:00 02/23/20 08:59 01/31/20 08:47 Quetiapine Fumarate (SEROqueL) 100 mg TID ORAL 01/28/20 09:00 03/09/20 08:59 01/29/20 17:24 Sevelamer Carbonate (Renvela) 1,600 mg THREE TIMES A DAY ORAL 01/28/20 09:00 04/23/20 17:59 01/31/20 08:47 Zinc Sulfate (Zinc Sulfate) 220 mg DAILY ORAL 01/28/20 09:00 04/23/20 08:59 01/31/20 08:47 Last 24 Hour Vital Signs Date Time Temp Pulse Resp B/P (MAP) Pulse Ox O2 Delivery O2 Flow Rate FiO2 01/31/20 08:50 Room Air 01/31/20 08:48 74 130/89 01/31/20 08:47 74 130/89 01/31/20 08:00 98.0 74 18 130/89 (103) 96 01/31/20 06:31 137/95 01/31/20 04:00 97.7 76 17 137/95 (109) 96 01/31/20 00:00 97.9 79 18 149/87 (107) 98 01/30/20 21:46 81 142/83 01/30/20 21:45 142/83 01/30/20 21:00 Room Air 01/30/20 20:00 98.4 81 19 142/83 (102) 97 01/30/20 16:00 98.9 80 19 160/86 (110) 98 01/30/20 12:00 99.1 77 19 162/81 (108) 98 01/30/20 09:00 Room Air 01/30/20 08:57 81 133/74 01/30/20 08:57 81 133/74 01/30/20 08:00 98.4 81 20 133/74 (93) 96 01/30/20 06:22 138/79 01/30/20 04:00 98.3 78 20 138/79 (98) 94 01/30/20 00:00 98.2 76 18 146/77 (100) 96 01/29/20 22:55 155/84 01/29/20 21:03 83 155/84 01/29/20 21:00 Room Air 01/29/20 20:00 98.1 83 17 155/84 (107) 95 01/29/20 19:16 98.3 01/29/20 16:00 98.3 87 19 135/76 (95) 97 01/29/20 14:07 137/86 01/29/20 12:00 97.9 89 18 137/86 (103) 98 Intake and Output 01/30/20 01/31/20 19:00 07:00 Intake Total 480 ml Output Total 2000 ml Balance -2000 ml 480 ml Intake Oral 480 ml Hemodialysis UF 2000 ml # Voids 3 # Bowel Movements 1 1 Labs Test 01/29/20 04:20 01/30/20 04:43 01/30/20 13:45 01/30/20 14:30 White Blood Count 6.5 K/UL (4.8-10.8) 6.0 K/UL (4.8-10.8) Red Blood Count 2.56 M/UL (4.70-6.10) 2.78 M/UL (4.70-6.10) Hemoglobin 7.7 G/DL (14.2-18.0) 8.3 G/DL (14.2-18.0) Hematocrit 24.1 % (42.0-52.0) 26.4 % (42.0-52.0) Mean Corpuscular Volume 94 FL (80-99) 95 FL (80-99) Mean Corpuscular Hemoglobin 30.1 PG (27.0-31.0) 30.0 PG (27.0-31.0) Mean Corpuscular Hemoglobin Concent 31.9 G/DL (32.0-36.0) 31.6 G/DL (32.0-36.0) Red Cell Distribution Width 15.2 % (11.6-14.8) 15.2 % (11.6-14.8) Platelet Count 182 K/UL (150-450) 209 K/UL (150-450) Mean Platelet Volume 6.3 FL (6.5-10.1) 6.6 FL (6.5-10.1) Neutrophils (%) (Auto) % (45.0-75.0) 68.6 % (45.0-75.0) Lymphocytes (%) (Auto) % (20.0-45.0) 18.2 % (20.0-45.0) Monocytes (%) (Auto) % (1.0-10.0) 4.8 % (1.0-10.0) Eosinophils (%) (Auto) % (0.0-3.0) 7.2 % (0.0-3.0) Basophils (%) (Auto) % (0.0-2.0) 1.3 % (0.0-2.0) Differential Total Cells Counted 100 Neutrophils % (Manual) 75 % (45-75) Lymphocytes % (Manual) 14 % (20-45) Monocytes % (Manual) 10 % (1-10) Eosinophils % (Manual) 1 % (0-3) Basophils % (Manual) 0 % (0-2) Band Neutrophils 0 % (0-8) Platelet Estimate Adequate Platelet Morphology Normal Anisocytosis 1+ Sodium Level 143 MMOL/L (136-145) 141 MMOL/L (136-145) Potassium Level 4.0 MMOL/L (3.5-5.1) 4.8 MMOL/L (3.5-5.1) Chloride Level 106 MMOL/L (98-107) 105 MMOL/L (98-107) Carbon Dioxide Level 30 MMOL/L (21-32) 26 MMOL/L (21-32) Anion Gap 7 mmol/L (5-15) 10 mmol/L (5-15) Blood Urea Nitrogen 43 mg/dL (7-18) 60 mg/dL (7-18) Creatinine 4.1 MG/DL (0.55-1.30) 5.7 MG/DL (0.55-1.30) Estimat Glomerular Filtration Rate 15.5 mL/min (>60) 10.6 mL/min (>60) Glucose Level 96 MG/DL (74-106) 114 MG/DL (74-106) Calcium Level 7.9 MG/DL (8.5-10.1) 7.9 MG/DL (8.5-10.1) Stool Occult Blood Positive (NEGATIVE) Height (Feet): 5 Height (Inches): 6.00 Weight (Pounds): 146 Objective Physical Exam: Vitals: reviewed General: NAD HEENT: nc, at, Right chest permacath Neck: supple Chest: clear breath sounds bilaterally Cardiovascular: RRR, no s3, s4 Abdomen: soft, nontender, nd Extremities: no cce, normal range of motion Neuro: alert and oriented Junior Jimenez MD Jan 31, 2020 10:44
--- NOTE | 2020-01-31 11:00 | Nephrology Progress Note ---
Assessment/Plan Problem List: (1) ESRD (end stage renal disease) on dialysis (2) Anemia (3) Hyperkalemia (4) Hypertensive kidney disease Assessment End-stage renal disease on hemodialysis via chest permacath, patient missed dialysis Presents with severe anemia and hyperkalemia Status post transfusion for anemia Status post insertion of a PICC line History of hypertension History of psych disease Plan January 30: Patient clinically stable. Last dialyzed yesterday. Due for dialysis tomorrow. January 29: Lab reviewed. Hemodialysis today. Discharge planning in process. January 28: Lab reviewed. Dialyzed yesterday. Next hemodialysis tomorrow. January 27: Labs reviewed. Patient currently on dialysis. Tolerating well. Remains stable from renal standpoint to view while getting regular dialysis. Hemoglobin drifting down. Patient on Epogen. Transfusion as needed. January 26: Consultants appreciated. As per [employer] patient refuses to go to the psych unit or fdc and wants to be discharged to the street. According to the psychiatrist patient does not have capacity to make rational decision. If the patient does not receive dialysis on a regular basis he is clinical condition will deteriorated with . Dialysis ordered for tomorrow. Labs to be drawn prior to initiation of dialysis tomorrow. Continue to rest of management and per consultants. Medication list reviewed. I spent an additional 36 minutes on review of medical records ,consult notes, progress notes, imaging and available labs, and other clinical documentation. Frequent conversation with the case management Anahi and Dr. Powers and RN taking care of the patient today. January 25: Patient will receive dialysis today. Is only agreeable to draw blood work prior to dialysis from the access line. Further comments after lab results available. January 24: Today's labs pending. Will order dialysis for tomorrow. Blood pressure stable. Hemodialysis for hyperkalemia, was done on January 23. Adjust blood pressure medications Plus binders Continue to monitor her hemoglobin hematocrit and blood pressure Per orders Subjective ROS Limited/Unobtainable: No Constitutional: Reports: malaise Objective Objective Last 24 Hour Vital Signs Date Time Temp Pulse Resp B/P (MAP) Pulse Ox O2 Delivery O2 Flow Rate FiO2 01/31/20 08:50 Room Air 01/31/20 08:48 74 130/89 01/31/20 08:47 74 130/89 01/31/20 08:00 98.0 74 18 130/89 (103) 96 01/31/20 06:31 137/95 01/31/20 04:00 97.7 76 17 137/95 (109) 96 01/31/20 00:00 97.9 79 18 149/87 (107) 98 01/30/20 21:46 81 142/83 01/30/20 21:45 142/83 01/30/20 21:00 Room Air 01/30/20 20:00 98.4 81 19 142/83 (102) 97 01/30/20 16:00 98.9 80 19 160/86 (110) 98 01/30/20 12:00 99.1 77 19 162/81 (108) 98 Intake and Output 01/30/20 01/31/20 19:00 07:00 Intake Total 480 ml Output Total 2000 ml Balance -2000 ml 480 ml Intake Oral 480 ml Hemodialysis UF 2000 ml # Voids 3 # Bowel Movements 1 1 Laboratory Tests 01/30/20 13:45: Sodium Level 141, Potassium Level 4.8, Chloride Level 105, Carbon Dioxide Level 26, Anion Gap 10, Blood Urea Nitrogen 60H, Creatinine 5.7H, Estimat Glomerular Filtration Rate 10.6, Glucose Level 114H, Calcium Level 7.9L 01/30/20 14:30: White Blood Count 6.0, Red Blood Count 2.78L, Hemoglobin 8.3L, Hematocrit 26.4L , Mean Corpuscular Volume 95, Mean Corpuscular Hemoglobin 30.0, Mean Corpuscular Hemoglobin Concent 31.6L, Red Cell Distribution Width 15.2H, Platelet Count 209, Mean Platelet Volume 6.6, Neutrophils (%) (Auto) 68.6, Lymphocytes (%) (Auto) 18.2L, Monocytes (%) (Auto) 4.8, Eosinophils (%) (Auto) 7.2H, Basophils (%) (Auto) 1.3 Height (Feet): 5 Height (Inches): 6.00 Weight (Pounds): 146 General Appearance: no apparent distress Cardiovascular: normal rate Respiratory/Chest: decreased breath sounds Abdomen: soft Objective No change Viktor Kang MD Jan 31, 2020 11:00
[2020-01-31 11:44] VITALS: BP 135/79
--- NOTE | 2020-01-31 12:38 | General Progress Note ---
Assessment/Plan Problem List: (1) Hypertensive kidney disease ICD Codes: I12.9 - Hypertensive chronic kidney disease with stage 1 through stage 4 chronic kidney disease, or unspecified chronic kidney disease SNOMED: 93347908 (2) Anemia ICD Codes: D64.9 - Anemia, unspecified SNOMED: 769636735 Qualifiers: Qualified Codes: D64.9 - Anemia, unspecified (3) ESRD (end stage renal disease) on dialysis ICD Codes: N18.6 - End stage renal disease; Z99.2 - Dependence on renal dialysis SNOMED: 853159513 (4) Fracture, pelvis closed ICD Codes: S32.9XXA - Fracture of unspecified parts of lumbosacral spine and pelvis, initial encounter for closed fracture SNOMED: 68647888 Qualifiers: Qualified Codes: S32.89XK - Fracture of other parts of pelvis, subsequent encounter for fracture with nonunion (5) Hyperkalemia ICD Codes: E87.5 - Hyperkalemia; Z99.2 - Dependence on renal dialysis SNOMED: 02566074 (6) H/O bacteremia ICD Codes: Z87.898 - Personal history of other specified conditions SNOMED: 330377380 (7) Wrist fracture, right ICD Codes: S62.101A - Fracture of unspecified carpal bone, right wrist, initial encounter for closed fracture SNOMED: 738085937, 607998158 Qualifiers: Qualified Codes: S62.101D - Fracture of unspecified carpal bone, right wrist , subsequent encounter for fracture with routine healing (8) Schizophrenia ICD Codes: F20.9 - Schizophrenia, unspecified SNOMED: 01353350 Qualifiers: Qualified Codes: F20.9 - Schizophrenia, unspecified Status: stable, progressing Assessment/Plan: s/p one unit PRBC so far no active GIB no iron def fu stool ob>> positive HD per nephrology abx per ID GI procedures on hold for now fu cbc Subjective ROS Limited/Unobtainable: Yes Allergies: Coded Allergies: No Known Allergies (Unverified , 01/23/20) Subjective arm pain Objective Last 24 Hour Vital Signs Date Time Temp Pulse Resp B/P (MAP) Pulse Ox O2 Delivery O2 Flow Rate FiO2 01/31/20 11:44 97.7 75 18 135/79 (97) 98 01/31/20 08:50 Room Air 01/31/20 08:48 74 130/89 01/31/20 08:47 74 130/89 01/31/20 08:00 98.0 74 18 130/89 (103) 96 01/31/20 06:31 137/95 01/31/20 04:00 97.7 76 17 137/95 (109) 96 01/31/20 00:00 97.9 79 18 149/87 (107) 98 01/30/20 21:46 81 142/83 01/30/20 21:45 142/83 01/30/20 21:00 Room Air 01/30/20 20:00 98.4 81 19 142/83 (102) 97 01/30/20 16:00 98.9 80 19 160/86 (110) 98 Intake and Output 01/30/20 01/31/20 19:00 07:00 Intake Total 480 ml Output Total 2000 ml Balance -2000 ml 480 ml Intake Oral 480 ml Hemodialysis UF 2000 ml # Voids 3 # Bowel Movements 1 1 Laboratory Tests 01/30/20 13:45: Sodium Level 141, Potassium Level 4.8, Chloride Level 105, Carbon Dioxide Level 26, Anion Gap 10, Blood Urea Nitrogen 60H, Creatinine 5.7H, Estimat Glomerular Filtration Rate 10.6, Glucose Level 114H, Calcium Level 7.9L 01/30/20 14:30: White Blood Count 6.0, Red Blood Count 2.78L, Hemoglobin 8.3L, Hematocrit 26.4L , Mean Corpuscular Volume 95, Mean Corpuscular Hemoglobin 30.0, Mean Corpuscular Hemoglobin Concent 31.6L, Red Cell Distribution Width 15.2H, Platelet Count 209, Mean Platelet Volume 6.6, Neutrophils (%) (Auto) 68.6, Lymphocytes (%) (Auto) 18.2L, Monocytes (%) (Auto) 4.8, Eosinophils (%) (Auto) 7.2H, Basophils (%) (Auto) 1.3 Height (Feet): 5 Height (Inches): 6.00 Weight (Pounds): 146 General Appearance: alert EENT: normal ENT inspection Neck: supple Cardiovascular: normal rate Respiratory/Chest: decreased breath sounds Abdomen: normal bowel sounds, non tender, soft Extremities: non-tender Edi Dhaliwal MD Jan 31, 2020 12:38
--- NOTE | 2020-01-31 13:46 | General Progress Note ---
Assessment/Plan Problem List: (1) Schizophrenia ICD Codes: F20.9 - Schizophrenia, unspecified SNOMED: 62707182 Qualifiers: Qualified Codes: F20.9 - Schizophrenia, unspecified (2) Hyperkalemia ICD Codes: E87.5 - Hyperkalemia; Z99.2 - Dependence on renal dialysis SNOMED: 29952229 (3) Fracture, pelvis closed ICD Codes: S32.9XXA - Fracture of unspecified parts of lumbosacral spine and pelvis, initial encounter for closed fracture SNOMED: 81062534 Qualifiers: Qualified Codes: S32.89XK - Fracture of other parts of pelvis, subsequent encounter for fracture with nonunion (4) ESRD (end stage renal disease) on dialysis ICD Codes: N18.6 - End stage renal disease; Z99.2 - Dependence on renal dialysis SNOMED: 008676380 (5) Anemia ICD Codes: D64.9 - Anemia, unspecified SNOMED: 275121497 Qualifiers: Qualified Codes: D64.9 - Anemia, unspecified Status: stable, progressing Assessment/Plan: pt diet transfuse prn dialysis prn cbc bmp am dc to snf if all clear Subjective Constitutional: Reports: weakness Allergies: Coded Allergies: No Known Allergies (Unverified , 01/23/20) All Systems: reviewed and negative except above Subjective sleepy calm Objective Last 24 Hour Vital Signs Date Time Temp Pulse Resp B/P (MAP) Pulse Ox O2 Delivery O2 Flow Rate FiO2 01/31/20 13:08 135/79 01/31/20 11:44 97.7 75 18 135/79 (97) 98 01/31/20 08:50 Room Air 01/31/20 08:48 74 130/89 01/31/20 08:47 74 130/89 01/31/20 08:00 98.0 74 18 130/89 (103) 96 01/31/20 06:31 137/95 01/31/20 04:00 97.7 76 17 137/95 (109) 96 01/31/20 00:00 97.9 79 18 149/87 (107) 98 01/30/20 21:46 81 142/83 01/30/20 21:45 142/83 01/30/20 21:00 Room Air 01/30/20 20:00 98.4 81 19 142/83 (102) 97 01/30/20 16:00 98.9 80 19 160/86 (110) 98 Intake and Output 01/30/20 01/31/20 19:00 07:00 Intake Total 480 ml Output Total 2000 ml Balance -2000 ml 480 ml Intake Oral 480 ml Hemodialysis UF 2000 ml # Voids 3 # Bowel Movements 1 1 Laboratory Tests 01/30/20 14:30: White Blood Count 6.0, Red Blood Count 2.78L, Hemoglobin 8.3L, Hematocrit 26.4L , Mean Corpuscular Volume 95, Mean Corpuscular Hemoglobin 30.0, Mean Corpuscular Hemoglobin Concent 31.6L, Red Cell Distribution Width 15.2H, Platelet Count 209, Mean Platelet Volume 6.6, Neutrophils (%) (Auto) 68.6, Lymphocytes (%) (Auto) 18.2L, Monocytes (%) (Auto) 4.8, Eosinophils (%) (Auto) 7.2H, Basophils (%) (Auto) 1.3 Height (Feet): 5 Height (Inches): 6.00 Weight (Pounds): 146 General Appearance: lethargic EENT: normal ENT inspection Neck: normal alignment Cardiovascular: normal peripheral pulses, normal rate, regular rhythm Respiratory/Chest: chest wall non-tender, lungs clear, normal breath sounds Abdomen: normal bowel sounds, non tender, soft Extremities: normal inspection Edema: no edema noted Arm (L), no edema noted Arm (R), no edema noted Leg (L), no edema noted Leg (R), no edema noted Pedal (L), no edema noted Pedal (R), no edema noted Generalized Neurologic: motor weakness Skin: normal pigmentation, warm/dry Theo Powers DO Jan 31, 2020 13:46
--- NOTE | 2020-01-31 13:47 | Infectious Diseases Prog Note ---
Assessment/Plan Assessment: fever; SP No leukocytosis -u/a no pyuria -refused blood cultures PRobable PNA- COVID neg x2 -sp cx yeast -01/27 SARS-COV2 PCR neg -01/23 CXR: Bilateral right greater than left infiltrates versus edema. Right- sided pleural thickening versus fluid -01/19 COVID test (at [facility])- reported negative Acute on chronic anemia Hyperkalemia ?report of bacteremia- I can't confirm this. at the moment, patient afebrile, no leukocytosis- no signs of infection. will obtain Bcx x2 01/22 failed attempted PICC line placement; Mid line placed instead COVID19 neg on 01/07 at [facility]; a repeat test was sent on 01/20 schizophrenia ESRD on HD HTN smoker pelvic fracture s/p hip hardware placement -01/23/20 hip xray: Positive for bilateral pubic fracture, as described. Fracture lines appear acute and displaced, but presence of proliferative change may indicate a chronic component. Correlate with clinical history Plan: - Continue to monitor off abx -01/28 SP Ceftriaxone #5 -f/u cx -Monitor CBC/CMP, temperatures -COVID neg x2; ok to dc isolation -renal f/u Thank you for this consultation. Will continue to follow along with you. Discussed with RN. Subjective Allergies: Coded Allergies: No Known Allergies (Unverified , 01/23/20) afebrile at [facility] no leukocytosis discharge planning Objective Last 24 Hour Vital Signs Date Time Temp Pulse Resp B/P (MAP) Pulse Ox O2 Delivery O2 Flow Rate FiO2 01/31/20 13:08 135/79 01/31/20 11:44 97.7 75 18 135/79 (97) 98 01/31/20 08:50 Room Air 01/31/20 08:48 74 130/89 01/31/20 08:47 74 130/89 01/31/20 08:00 98.0 74 18 130/89 (103) 96 01/31/20 06:31 137/95 01/31/20 04:00 97.7 76 17 137/95 (109) 96 01/31/20 00:00 97.9 79 18 149/87 (107) 98 01/30/20 21:46 81 142/83 01/30/20 21:45 142/83 01/30/20 21:00 Room Air 01/30/20 20:00 98.4 81 19 142/83 (102) 97 01/30/20 16:00 98.9 80 19 160/86 (110) 98 Height (Feet): 5 Height (Inches): 6.00 Weight (Pounds): 146 General Appearance: no distress EENT: normal ENT inspection Neck: normal alignment Cardiovascular: normal peripheral pulses, normal rate, regular rhythm Respiratory/Chest: chest wall non-tender, lungs clear, normal breath sounds Abdomen: normal bowel sounds, non tender, soft Extremities: normal inspection Neurologic: motor weakness Skin: normal pigmentation, warm/dry Laboratory Tests Test 01/30/20 14:30 White Blood Count 6.0 K/UL (4.8-10.8) Red Blood Count 2.78 M/UL (4.70-6.10) L Hemoglobin 8.3 G/DL (14.2-18.0) L Hematocrit 26.4 % (42.0-52.0) L Mean Corpuscular Volume 95 FL (80-99) Mean Corpuscular Hemoglobin 30.0 PG (27.0-31.0) Mean Corpuscular Hemoglobin Concent 31.6 G/DL (32.0-36.0) L Red Cell Distribution Width 15.2 % (11.6-14.8) H Platelet Count 209 K/UL (150-450) Mean Platelet Volume 6.6 FL (6.5-10.1) Neutrophils (%) (Auto) 68.6 % (45.0-75.0) Lymphocytes (%) (Auto) 18.2 % (20.0-45.0) L Monocytes (%) (Auto) 4.8 % (1.0-10.0) Eosinophils (%) (Auto) 7.2 % (0.0-3.0) H Basophils (%) (Auto) 1.3 % (0.0-2.0) Current Medications Medications (Trade) Dose Ordered Sig/Michelle Route PRN Reason Start Time Stop Time Status Last Admin Dose Admin Amlodipine Besylate (Norvasc) 10 mg DAILY ORAL 01/28/20 09:00 02/24/20 08:59 01/31/20 08:48 Chlorhexidine Gluconate (Karley-Hex 2%) 1 applic DAILY@1999 TOPIC 01/28/20 20:00 04/22/20 19:59 01/30/20 21:43 Clonidine HCl (Catapres tab) 0.2 mg Q8HR ORAL 01/27/20 22:00 04/23/20 08:59 01/31/20 13:08 Docusate Sodium (Colace) 100 mg TIAC ORAL 01/28/20 06:30 02/23/20 08:59 01/31/20 11:12 Epoetin Pineda (Epoetin Pineda(ESRD on dialysis)) 10,000 unit THU- SUBQ 01/30/20 21:00 04/29/20 20:59 01/30/20 21:46 Lorazepam (Ativan) 1 mg Q6H PRN ORAL For Anxiety 01/27/20 21:00 02/03/20 20:59 Magnesium Hydroxide (Mom) 30 ml HSPRN PRN ORAL Constipation 01/27/20 21:00 02/26/20 20:59 01/29/20 22:55 Metoprolol Tartrate (Lopressor) 100 mg EVERY 12 HOURS ORAL 01/27/20 21:00 04/23/20 08:59 01/31/20 08:47 Morphine Sulfate (Morphine Sulfate) 2 mg Q4H PRN IVP For Pain 6-8 01/27/20 21:00 02/03/20 20:59 01/31/20 11:12 Neomycin/ Polymyxin/ Bacitracin (Neomycin/Polymy/ Bacitr Oint) 1 applic Q8H PRN TOPIC for skin infection 01/27/20 21:00 04/26/20 20:59 Pantoprazole (Protonix) 40 mg EVERY 12 HOURS ORAL 01/27/20 21:00 02/23/20 08:59 01/31/20 08:47 Quetiapine Fumarate (SEROqueL) 100 mg TID ORAL 01/28/20 09:00 03/09/20 08:59 01/29/20 17:24 Sevelamer Carbonate (Renvela) 1,600 mg THREE TIMES A DAY ORAL 01/28/20 09:00 04/23/20 17:59 01/31/20 13:08 Zinc Sulfate (Zinc Sulfate) 220 mg DAILY ORAL 01/28/20 09:00 04/23/20 08:59 01/31/20 08:47 Michelle Morales M.D. Jan 31, 2020 13:47
[2020-01-31 15:36] VITALS: BP 130/81
--- NOTE | 2020-01-31 18:00 | Progress Note ---
DATE: 01/31/2020 SUBJECTIVE: This is a 49-year-old male patient with hyperkalemia. This patient also is on hemodialysis. He has wrist fracture, history of bacteremia, end-stage renal disease, anemia, and hypertensive renal disease, but also history of schizophrenia. He is trying to leave the hospital against medical advice. I tried to explain him the importance of getting dialysis here in the hospital until he is medically cleared. But, he is still disorganized to have any insight to understand the risks, benefits, and consequences versus benefits of leaving the hospital early against medical advice. So for that reason he is going to explain back to me the logical stay in the hospital versus leaving the hospital. MENTAL STATUS EXAMINATION: This is a 49-year-old male. Appearance is disheveled. Attitude, irritable and agitated. Affect is labile. Intellect, poor. Mood, depressed and anxious. Motor activity, psychomotor agitation. Attention span is poor. Orientation x2. Speech is pressured. Thought process, disorganized and illogical. Insight and judgment is poor. DIAGNOSIS: Paranoid schizophrenia, acute exacerbation. PLAN: I am going to treat this patient with medication regimen consisting of Seroquel at a dose of 100 mg three times a day, but I believe this patient lacks capacity to make medical decisions for himself and he is currently making the decision which is danger to himself and he cannot logically state back after I explained the risks, benefits, side effects, consequences back to me. Certainly, he lacks capacity so it is not reasonable for him leaving the hospital against medical advice. 20 minutes of insight-oriented psychotherapy provided will help him understand his medical and psychiatric illness that he has and how important is the treatment and that he has in order to reduce depression and anxiety. Twenty minutes of insight-oriented psychotherapy to reduce impulsivity and reduce depression and anxiety. Maura Larios M.D. DR: ADRI JOB#: [id number] CC:
[2020-01-31 20:00] VITALS: BP 137/74
[2020-01-31] MEDS: Dyna-Hex 2% Top Sol 2oz TOPIC SCH (20:45)
[2020-02-01] VITALS: BP 134/73
[2020-02-01] MEDS: Morphine Sulfate 2mg/ml Inj(IV/IM USE ONLY) IVP PRN ×6 (00:07→21:02)
[2020-02-01 04:00] VITALS: BP 120/68
[2020-02-01] MEDS: cloNIDine 0.2mg Tab ORAL SCH ×4 (06:00→22:34)
[2020-02-01] MEDS: Docusate 100mg cap ORAL SCH ×3 (06:30→16:30)
[2020-02-01 08:00] VITALS: BP 130/74
--- NOTE | 2020-02-01 08:17 | Hematology/Onc Progress Note ---
Assessment/Plan Assessment/Plan # Anemia of chronic disease due to underlying chronic medical issues, multifactorial v Gi bleed --> Anemia workup has been ordered, rule out gi bleed --> No evidence of hemolysis is noted, peripheral smear has been reviewed. --> Hgb goal >7. Transfuse prn. --> Epogen started given esrd --> Medications have been reviewed --> low threshold for gi evaluation in case has occult + --> bone marrow biopsy is not indicated given the other more likely causes -> hgb trend 7.2-->8.3 --> s/p one unit PRBC 01/29 # ESRD on hd --> as per renal --> with permacath noted right chest # Hyperkalemia -> adjustment per renal # Status post insertion of a PICC line # History of hypertension # History of psych disease The timing of this note does not necessarily reflect the time of the patient was seen. Greatly appreciate consultation. Subjective Constitutional: Denies: no symptoms, chills, fever, malaise, weakness, other HEENT: Denies: no symptoms, eye pain, blurred vision, tearing, double vision, ear pain, ear discharge, nose pain, nose congestion, throat pain, throat swelling, mouth pain, mouth swelling, other Cardiovascular: Denies: no symptoms, chest pain, edema, irregular heart rate, lightheadedness, palpitations, syncope, other Respiratory: Denies: no symptoms, cough, shortness of breath, SOB with excertion, SOB at rest, sputum, wheezing, other Gastrointestinal/Abdominal: Denies: no symptoms, abdomen distended, abdominal pain, black stools, tarry stools, blood in stool, constipated, diarrhea, difficulty swallowing, nausea, poor appetite, poor fluid intake, rectal bleeding , vomiting, other Neurologic/Psychiatric: Denies: no symptoms, anxiety, depressed, emotional problems, headache, numbness, paresthesia, pre-existing deficit, seizure, tingling, tremors, weakness, other Allergies: Coded Allergies: No Known Allergies (Unverified , 01/23/20) Subjective 01/30 with permacath, refusing dc to snf, labs refused this am as well 01/31 labs are noted, no bleeding, meds reviewed, no hemolysis Objective Objective Current Medications Medications (Trade) Dose Ordered Sig/Michelle Route PRN Reason Start Time Stop Time Status Last Admin Dose Admin Amlodipine Besylate (Norvasc) 10 mg DAILY ORAL 01/28/20 09:00 02/24/20 08:59 01/31/20 08:48 Chlorhexidine Gluconate (Karley-Hex 2%) 1 applic DAILY@1999 TOPIC 01/28/20 20:00 04/22/20 19:59 01/31/20 20:45 Clonidine HCl (Catapres tab) 0.2 mg Q8HR ORAL 01/27/20 22:00 04/23/20 08:59 01/31/20 22:49 Docusate Sodium (Colace) 100 mg TIAC ORAL 01/28/20 06:30 02/23/20 08:59 01/31/20 15:32 Epoetin Pineda (Epoetin Pineda(ESRD on dialysis)) 10,000 unit SUBQ 01/30/20 21:00 04/29/20 20:59 01/30/20 21:46 Lorazepam (Ativan) 1 mg Q6H PRN ORAL For Anxiety 01/27/20 21:00 02/03/20 20:59 Magnesium Hydroxide (Mom) 30 ml HSPRN PRN ORAL Constipation 01/27/20 21:00 02/26/20 20:59 01/29/20 22:55 Metoprolol Tartrate (Lopressor) 100 mg EVERY 12 HOURS ORAL 01/27/20 21:00 04/23/20 08:59 01/31/20 20:45 Morphine Sulfate (Morphine Sulfate) 2 mg Q4H PRN IVP For Pain 6-8 01/27/20 21:00 02/03/20 20:59 02/01/20 04:54 Neomycin/ Polymyxin/ Bacitracin (Neomycin/Polymy/ Bacitr Oint) 1 applic Q8H PRN TOPIC for skin infection 01/27/20 21:00 04/26/20 20:59 Pantoprazole (Protonix) 40 mg EVERY 12 HOURS ORAL 01/27/20 21:00 02/23/20 08:59 01/31/20 20:45 Quetiapine Fumarate (SEROqueL) 100 mg TID ORAL 01/28/20 09:00 03/09/20 08:59 01/29/20 17:24 Sevelamer Carbonate (Renvela) 1,600 mg THREE TIMES A DAY ORAL 01/28/20 09:00 04/23/20 17:59 01/31/20 17:04 Zinc Sulfate (Zinc Sulfate) 220 mg DAILY ORAL 01/28/20 09:00 04/23/20 08:59 01/31/20 08:47 Last 24 Hour Vital Signs Date Time Temp Pulse Resp B/P (MAP) Pulse Ox O2 Delivery O2 Flow Rate FiO2 02/01/20 08:00 97.5 75 19 130/74 (92) 99 02/01/20 05:24 98.4 02/01/20 04:00 97.8 73 18 120/68 (85) 97 02/01/20 00:00 96.8 79 18 134/73 (93) 99 01/31/20 22:49 131/70 01/31/20 21:00 Room Air 01/31/20 20:45 80 137/74 01/31/20 20:00 97.7 77 18 137/74 (95) 98 01/31/20 15:36 98.4 83 18 130/81 (97) 98 01/31/20 13:08 135/79 01/31/20 11:44 97.7 75 18 135/79 (97) 98 01/31/20 08:50 Room Air 01/31/20 08:48 74 130/89 01/31/20 08:47 74 130/89 01/31/20 08:00 98.0 74 18 130/89 (103) 96 01/31/20 06:31 137/95 01/31/20 04:00 97.7 76 17 137/95 (109) 96 01/31/20 00:00 97.9 79 18 149/87 (107) 98 01/30/20 21:46 81 142/83 01/30/20 21:45 142/83 01/30/20 21:00 Room Air 01/30/20 20:00 98.4 81 19 142/83 (102) 97 01/30/20 16:00 98.9 80 19 160/86 (110) 98 01/30/20 12:00 99.1 77 19 162/81 (108) 98 01/30/20 09:00 Room Air 01/30/20 08:57 81 133/74 01/30/20 08:57 81 133/74 Intake and Output 01/31/20 02/01/20 19:00 07:00 Intake Total 800 ml 600 ml Output Total 800 ml 850 ml Balance 0 ml -250 ml Intake Oral 800 ml 600 ml Output Urine Total 800 ml 850 ml # Voids 2 4 # Bowel Movements 1 Labs Test 01/30/20 04:43 01/30/20 13:45 01/30/20 14:30 Stool Occult Blood Positive (NEGATIVE) Sodium Level 141 MMOL/L (136-145) Potassium Level 4.8 MMOL/L (3.5-5.1) Chloride Level 105 MMOL/L (98-107) Carbon Dioxide Level 26 MMOL/L (21-32) Anion Gap 10 mmol/L (5-15) Blood Urea Nitrogen 60 mg/dL (7-18) Creatinine 5.7 MG/DL (0.55-1.30) Estimat Glomerular Filtration Rate 10.6 mL/min (>60) Glucose Level 114 MG/DL (74-106) Calcium Level 7.9 MG/DL (8.5-10.1) White Blood Count 6.0 K/UL (4.8-10.8) Red Blood Count 2.78 M/UL (4.70-6.10) Hemoglobin 8.3 G/DL (14.2-18.0) Hematocrit 26.4 % (42.0-52.0) Mean Corpuscular Volume 95 FL (80-99) Mean Corpuscular Hemoglobin 30.0 PG (27.0-31.0) Mean Corpuscular Hemoglobin Concent 31.6 G/DL (32.0-36.0) Red Cell Distribution Width 15.2 % (11.6-14.8) Platelet Count 209 K/UL (150-450) Mean Platelet Volume 6.6 FL (6.5-10.1) Neutrophils (%) (Auto) 68.6 % (45.0-75.0) Lymphocytes (%) (Auto) 18.2 % (20.0-45.0) Monocytes (%) (Auto) 4.8 % (1.0-10.0) Eosinophils (%) (Auto) 7.2 % (0.0-3.0) Basophils (%) (Auto) 1.3 % (0.0-2.0) Height (Feet): 5 Height (Inches): 6.00 Weight (Pounds): 152 Objective Physical Exam: Vitals: reviewed General: NAD HEENT: nc, at, Right chest permacath Neck: supple Chest: clear breath sounds bilaterally Cardiovascular: RRR, no s3, s4 Abdomen: soft, nontender, nd Extremities: no cce, normal range of motion Neuro: alert and oriented Junior Jimenez MD Feb 01, 2020 08:17
[2020-02-01] MEDS: Metoprolol Tartrate 100mg tab ORAL SCH ×3 (08:36→22:33)
[2020-02-01] MEDS: Zinc Sulfate 220mg ORAL SCH (08:39)
--- NOTE | 2020-02-01 09:17 | General Progress Note ---
Assessment/Plan Problem List: (1) Schizophrenia ICD Codes: F20.9 - Schizophrenia, unspecified SNOMED: 15759402 Qualifiers: Qualified Codes: F20.9 - Schizophrenia, unspecified (2) Hyperkalemia ICD Codes: E87.5 - Hyperkalemia; Z99.2 - Dependence on renal dialysis SNOMED: 92744100 (3) Fracture, pelvis closed ICD Codes: S32.9XXA - Fracture of unspecified parts of lumbosacral spine and pelvis, initial encounter for closed fracture SNOMED: 94534038 Qualifiers: Qualified Codes: S32.89XK - Fracture of other parts of pelvis, subsequent encounter for fracture with nonunion (4) ESRD (end stage renal disease) on dialysis ICD Codes: N18.6 - End stage renal disease; Z99.2 - Dependence on renal dialysis SNOMED: 607654553 (5) Anemia ICD Codes: D64.9 - Anemia, unspecified SNOMED: 390937538 Qualifiers: Qualified Codes: D64.9 - Anemia, unspecified Status: stable, progressing Assessment/Plan: pt diet transfuse prn dialysis prn cbc bmp am dc to snf if all clear Subjective Constitutional: Reports: weakness Allergies: Coded Allergies: No Known Allergies (Unverified , 01/23/20) All Systems: reviewed and negative except above Subjective sleepy calm Objective Last 24 Hour Vital Signs Date Time Temp Pulse Resp B/P (MAP) Pulse Ox O2 Delivery O2 Flow Rate FiO2 02/01/20 08:36 75 130/74 02/01/20 08:36 75 130/74 02/01/20 08:00 97.5 75 19 130/74 (92) 99 02/01/20 05:24 98.4 02/01/20 04:00 97.8 73 18 120/68 (85) 97 02/01/20 00:00 96.8 79 18 134/73 (93) 99 01/31/20 22:49 131/70 01/31/20 21:00 Room Air 01/31/20 20:45 80 137/74 01/31/20 20:00 97.7 77 18 137/74 (95) 98 01/31/20 15:36 98.4 83 18 130/81 (97) 98 01/31/20 13:08 135/79 01/31/20 11:44 97.7 75 18 135/79 (97) 98 Intake and Output 01/31/20 02/01/20 19:00 07:00 Intake Total 800 ml 600 ml Output Total 800 ml 850 ml Balance 0 ml -250 ml Intake Oral 800 ml 600 ml Output Urine Total 800 ml 850 ml # Voids 2 4 # Bowel Movements 1 Height (Feet): 5 Height (Inches): 6.00 Weight (Pounds): 152 General Appearance: lethargic EENT: normal ENT inspection Neck: normal alignment Cardiovascular: normal peripheral pulses, normal rate, regular rhythm Respiratory/Chest: chest wall non-tender, lungs clear, normal breath sounds Abdomen: normal bowel sounds, non tender, soft Extremities: normal inspection Edema: no edema noted Arm (L), no edema noted Arm (R), no edema noted Leg (L), no edema noted Leg (R), no edema noted Pedal (L), no edema noted Pedal (R), no edema noted Generalized Neurologic: motor weakness Skin: normal pigmentation, warm/dry Theo Powers DO Feb 01, 2020 09:17
--- NOTE | 2020-02-01 10:01 | General Progress Note ---
Assessment/Plan Problem List: (1) Hypertensive kidney disease ICD Codes: I12.9 - Hypertensive chronic kidney disease with stage 1 through stage 4 chronic kidney disease, or unspecified chronic kidney disease SNOMED: 21231385 (2) Anemia ICD Codes: D64.9 - Anemia, unspecified SNOMED: 232473588 Qualifiers: Qualified Codes: D64.9 - Anemia, unspecified (3) ESRD (end stage renal disease) on dialysis ICD Codes: N18.6 - End stage renal disease; Z99.2 - Dependence on renal dialysis SNOMED: 246596969 (4) Fracture, pelvis closed ICD Codes: S32.9XXA - Fracture of unspecified parts of lumbosacral spine and pelvis, initial encounter for closed fracture SNOMED: 98628983 Qualifiers: Qualified Codes: S32.89XK - Fracture of other parts of pelvis, subsequent encounter for fracture with nonunion (5) Hyperkalemia ICD Codes: E87.5 - Hyperkalemia; Z99.2 - Dependence on renal dialysis SNOMED: 62951920 (6) H/O bacteremia ICD Codes: Z87.898 - Personal history of other specified conditions SNOMED: 731467489 (7) Wrist fracture, right ICD Codes: S62.101A - Fracture of unspecified carpal bone, right wrist, initial encounter for closed fracture SNOMED: 846795170, 010570247 Qualifiers: Qualified Codes: S62.101D - Fracture of unspecified carpal bone, right wrist , subsequent encounter for fracture with routine healing (8) Schizophrenia ICD Codes: F20.9 - Schizophrenia, unspecified SNOMED: 05802873 Qualifiers: Qualified Codes: F20.9 - Schizophrenia, unspecified Status: stable, progressing Assessment/Plan: s/p one unit PRBC so far no active GIB no iron def fu stool ob>> positive HD per nephrology abx per ID GI procedures on hold for now fu cbc Subjective ROS Limited/Unobtainable: Yes Allergies: Coded Allergies: No Known Allergies (Unverified , 01/23/20) Subjective arm pain Objective Last 24 Hour Vital Signs Date Time Temp Pulse Resp B/P (MAP) Pulse Ox O2 Delivery O2 Flow Rate FiO2 02/01/20 09:10 97.5 02/01/20 09:00 Room Air 7/15/20 08:36 75 130/74 02/01/20 08:36 75 130/74 02/01/20 08:00 97.5 75 19 130/74 (92) 99 02/01/20 04:00 97.8 73 18 120/68 (85) 97 02/01/20 00:00 96.8 79 18 134/73 (93) 99 01/31/20 22:49 131/70 01/31/20 21:00 Room Air 01/31/20 20:45 80 137/74 01/31/20 20:00 97.7 77 18 137/74 (95) 98 01/31/20 15:36 98.4 83 18 130/81 (97) 98 01/31/20 13:08 135/79 01/31/20 11:44 97.7 75 18 135/79 (97) 98 Intake and Output 01/31/20 02/01/20 19:00 07:00 Intake Total 800 ml 600 ml Output Total 800 ml 850 ml Balance 0 ml -250 ml Intake Oral 800 ml 600 ml Output Urine Total 800 ml 850 ml # Voids 2 4 # Bowel Movements 1 Height (Feet): 5 Height (Inches): 6.00 Weight (Pounds): 152 General Appearance: no apparent distress EENT: normal ENT inspection Neck: supple Cardiovascular: normal rate Respiratory/Chest: decreased breath sounds Abdomen: normal bowel sounds, non tender, soft Extremities: non-tender Edi Dhaliwal MD Feb 01, 2020 10:01
--- NOTE | 2020-02-01 10:11 | Nephrology Progress Note ---
Assessment/Plan Problem List: (1) ESRD (end stage renal disease) on dialysis (2) Anemia (3) Hyperkalemia (4) Hypertensive kidney disease Assessment End-stage renal disease on hemodialysis via chest permacath, patient missed dialysis Presents with severe anemia and hyperkalemia Status post transfusion for anemia Status post insertion of a PICC line History of hypertension History of psych disease Plan January 31: Patient clinically stable. Due for dialysis today. Patient has a placement in a long-term with scheduled outpatient dialysis however the patient refuses to go to long-term meanwhile he remains homeless. I am afraid that upon discharge he would not be able to receive his outpatient dialysis if he has no placement. Patient need clearance by psychiatry for ability to make decisions of his own. January 30: Patient clinically stable. Last dialyzed yesterday. Due for dialysis tomorrow. January 29: Lab reviewed. Hemodialysis today. Discharge planning in process. January 28: Lab reviewed. Dialyzed yesterday. Next hemodialysis tomorrow. January 27: Labs reviewed. Patient currently on dialysis. Tolerating well. Remains stable from renal standpoint to view while getting regular dialysis. Hemoglobin drifting down. Patient on Epogen. Transfusion as needed. January 26: Consultants appreciated. As per case coordinator patient refuses to go to the psych unit or long-term and wants to be discharged to the street. According to the psychiatrist patient does not have capacity to make rational decision. If the patient does not receive dialysis on a regular basis he is clinical condition will deteriorated with . Dialysis ordered for tomorrow. Labs to be drawn prior to initiation of dialysis tomorrow. Continue to rest of management and per consultants. Medication list reviewed. I spent an additional 36 minutes on review of medical records ,consult notes, progress notes, imaging and available labs, and other clinical documentation. Frequent conversation with the case management Anahi and Dr. Powers and RN taking care of the patient today. January 25: Patient will receive dialysis today. Is only agreeable to draw blood work prior to dialysis from the access line. Further comments after lab results available. January 24: Today's labs pending. Will order dialysis for tomorrow. Blood pressure stable. Hemodialysis for hyperkalemia, was done on January 23. Adjust blood pressure medications Plus binders Continue to monitor her hemoglobin hematocrit and blood pressure Per orders Subjective ROS Limited/Unobtainable: No Constitutional: Reports: malaise Objective Objective Last 24 Hour Vital Signs Date Time Temp Pulse Resp B/P (MAP) Pulse Ox O2 Delivery O2 Flow Rate FiO2 02/01/20 09:10 97.5 02/01/20 09:00 Room Air 02/01/20 08:36 75 130/74 02/01/20 08:36 75 130/74 02/01/20 08:00 97.5 75 19 130/74 (92) 99 02/01/20 04:00 97.8 73 18 120/68 (85) 97 02/01/20 00:00 96.8 79 18 134/73 (93) 99 01/31/20 22:49 131/70 01/31/20 21:00 Room Air 01/31/20 20:45 80 137/74 01/31/20 20:00 97.7 77 18 137/74 (95) 98 01/31/20 15:36 98.4 83 18 130/81 (97) 98 01/31/20 13:08 135/79 01/31/20 11:44 97.7 75 18 135/79 (97) 98 Intake and Output 01/31/20 02/01/20 19:00 07:00 Intake Total 800 ml 600 ml Output Total 800 ml 850 ml Balance 0 ml -250 ml Intake Oral 800 ml 600 ml Output Urine Total 800 ml 850 ml # Voids 2 4 # Bowel Movements 1 Height (Feet): 5 Height (Inches): 6.00 Weight (Pounds): 152 General Appearance: no apparent distress Cardiovascular: normal rate Respiratory/Chest: lungs clear Abdomen: soft Objective No change Viktor Kang MD Feb 01, 2020 10:11
[2020-02-01 12:00] VITALS: BP 133/83
--- NOTE | 2020-02-01 14:26 | Infectious Diseases Prog Note ---
Assessment/Plan Assessment: fever; SP No leukocytosis -u/a no pyuria -refused blood cultures PRobable PNA- COVID neg x2 -sp cx yeast -01/27 SARS-COV2 PCR neg -01/23 CXR: Bilateral right greater than left infiltrates versus edema. Right- sided pleural thickening versus fluid -01/19 COVID test (at [facility])- reported negative Acute on chronic anemia Hyperkalemia ?report of bacteremia- I can't confirm this. at the moment, patient afebrile, no leukocytosis- no signs of infection. will obtain Bcx x2 01/22 failed attempted PICC line placement; Mid line placed instead COVID19 neg on 01/07 at [place]; a repeat test was sent on 01/20 schizophrenia ESRD on HD HTN smoker pelvic fracture s/p hip hardware placement -01/23/20 hip xray: Positive for bilateral pubic fracture, as described. Fracture lines appear acute and displaced, but presence of proliferative change may indicate a chronic component. Correlate with clinical history Plan: - Continue to monitor off abx -01/28 SP Ceftriaxone #5 -f/u cx -Monitor CBC/CMP, temperatures -COVID neg x2; ok to dc isolation -renal f/u Thank you for this consultation. Will continue to follow along with you. Discussed with RN. Subjective Allergies: Coded Allergies: No Known Allergies (Unverified , 01/23/20) afebrile at [facility] no leukocytosis discharge planning no new events Objective Last 24 Hour Vital Signs Date Time Temp Pulse Resp B/P (MAP) Pulse Ox O2 Delivery O2 Flow Rate FiO2 02/01/20 13:13 133/83 02/01/20 12:57 97.5 02/01/20 12:00 98.4 79 19 133/83 (100) 97 02/01/20 09:00 Room Air 02/01/20 08:36 75 130/74 02/01/20 08:36 75 130/74 02/01/20 08:00 97.5 75 19 130/74 (92) 99 02/01/20 04:00 97.8 73 18 120/68 (85) 97 02/01/20 00:00 96.8 79 18 134/73 (93) 99 01/31/20 22:49 131/70 01/31/20 21:00 Room Air 01/31/20 20:45 80 137/74 01/31/20 20:00 97.7 77 18 137/74 (95) 98 01/31/20 15:36 98.4 83 18 130/81 (97) 98 Height (Feet): 5 Height (Inches): 6.00 Weight (Pounds): 152 General Appearance: no distress EENT: normal ENT inspection Neck: normal alignment Cardiovascular: normal peripheral pulses, normal rate, regular rhythm Respiratory/Chest: chest wall non-tender, lungs clear, normal breath sounds Abdomen: normal bowel sounds, non tender, soft Extremities: normal inspection Neurologic: motor weakness Skin: normal pigmentation, warm/dry Current Medications Medications (Trade) Dose Ordered Sig/Michelle Route PRN Reason Start Time Stop Time Status Last Admin Dose Admin Amlodipine Besylate (Norvasc) 10 mg DAILY ORAL 01/28/20 09:00 02/24/20 08:59 01/31/20 08:48 Chlorhexidine Gluconate (Karley-Hex 2%) 1 applic DAILY@1999 TOPIC 01/28/20 20:00 04/22/20 19:59 01/31/20 20:45 Clonidine HCl (Catapres tab) 0.2 mg Q8HR ORAL 01/27/20 22:00 04/23/20 08:59 01/31/20 22:49 Docusate Sodium (Colace) 100 mg TIAC ORAL 01/28/20 06:30 02/23/20 08:59 01/31/20 15:32 Epoetin Pineda (Epoetin Pineda(ESRD on dialysis)) 10,000 unit THU-THU-THU SUBQ 01/30/20 21:00 04/29/20 20:59 01/30/20 21:46 Lorazepam (Ativan) 1 mg Q6H PRN ORAL For Anxiety 01/27/20 21:00 02/03/20 20:59 Magnesium Hydroxide (Mom) 30 ml HSPRN PRN ORAL Constipation 01/27/20 21:00 02/26/20 20:59 01/29/20 22:55 Metoprolol Tartrate (Lopressor) 100 mg EVERY 12 HOURS ORAL 01/27/20 21:00 04/23/20 08:59 01/31/20 20:45 Morphine Sulfate (Morphine Sulfate) 2 mg Q4H PRN IVP For Pain 6-8 01/27/20 21:00 02/03/20 20:59 02/01/20 12:27 Neomycin/ Polymyxin/ Bacitracin (Neomycin/Polymy/ Bacitr Oint) 1 applic Q8H PRN TOPIC for skin infection 01/27/20 21:00 04/26/20 20:59 Pantoprazole (Protonix) 40 mg EVERY 12 HOURS ORAL 01/27/20 21:00 02/23/20 08:59 02/01/20 08:39 Quetiapine Fumarate (SEROqueL) 100 mg TID ORAL 01/28/20 09:00 03/09/20 08:59 02/01/20 08:39 Sevelamer Carbonate (Renvela) 1,600 mg THREE TIMES A DAY ORAL 01/28/20 09:00 04/23/20 17:59 02/01/20 12:27 Zinc Sulfate (Zinc Sulfate) 220 mg DAILY ORAL 01/28/20 09:00 04/23/20 08:59 02/01/20 08:39 Michelle Morales M.D. Feb 01, 2020 14:26
[2020-02-01 16:00] VITALS: BP 136/75
--- NOTE | 2020-02-01 16:30 | Progress Note ---
DATE: 02/01/2020 SUBJECTIVE: This is a 49-year-old male patient, still depressed, confused, still has some mood lability. He has got low energy, very poor insight into his known illness . He has got renal insufficiency. MENTAL STATUS EXAMINATION: A 49-year-old male. Appearance is disheveled. Attitude irritable and agitated. Affect guarded and restricted. Intellect poor. Mood depressed and anxious. Motor activity, psychomotor agitation. Insight and judgment is poor. DIAGNOSIS: Paranoid schizophrenia. PLAN: Treat him with Seroquel 100 mg 3 times a day. Twenty minutes of cognitive behavioral therapy to help him identify his automatic negative thoughts, help him convert his negative thoughts to more positive thoughts to reduce depression, anxiety, mood lability. Also continue Ativan 1 every 6 hours p.r.n. anxiety and agitation. Chart reviewed. Discussed with staff. Seen and assessed at bedside. Maura Larios M.D. DR: TODD JOB#: [id number] CC:
[2020-02-01 20:00] VITALS: BP 171/88
[2020-02-01] MEDS: Epoetin Alfa-EPBX(ESRD on dialysis)10,000 unit/ml vial SUBQ SCH (21:08)
[2020-02-01] MEDS: Dyna-Hex 2% Top Sol 2oz TOPIC SCH (21:15)
[2020-02-02] VITALS: BP 137/71
[2020-02-02] MEDS: Morphine Sulfate 2mg/ml Inj(IV/IM USE ONLY) IVP PRN ×4 (01:06→13:20)
[2020-02-02 04:00] VITALS: BP 148/76
[2020-02-02] MEDS: cloNIDine 0.2mg Tab ORAL SCH ×2 (05:14→13:19)
[2020-02-02] MEDS: Docusate 100mg cap ORAL SCH ×2 (05:15→11:30)
[2020-02-02 08:00] VITALS: BP 134/70
[2020-02-02] MEDS: Zinc Sulfate 220mg ORAL SCH (09:28)
[2020-02-02] MEDS: Metoprolol Tartrate 100mg tab ORAL SCH (09:28)
--- NOTE | 2020-02-02 11:34 | General Progress Note ---
Assessment/Plan Problem List: (1) Schizophrenia ICD Codes: F20.9 - Schizophrenia, unspecified SNOMED: 66732875 Qualifiers: Qualified Codes: F20.9 - Schizophrenia, unspecified (2) Hyperkalemia ICD Codes: E87.5 - Hyperkalemia; Z99.2 - Dependence on renal dialysis SNOMED: 93323872 (3) Fracture, pelvis closed ICD Codes: S32.9XXA - Fracture of unspecified parts of lumbosacral spine and pelvis, initial encounter for closed fracture SNOMED: 57069221 Qualifiers: Qualified Codes: S32.89XK - Fracture of other parts of pelvis, subsequent encounter for fracture with nonunion (4) ESRD (end stage renal disease) on dialysis ICD Codes: N18.6 - End stage renal disease; Z99.2 - Dependence on renal dialysis SNOMED: 707933914 (5) Anemia ICD Codes: D64.9 - Anemia, unspecified SNOMED: 921300537 Qualifiers: Qualified Codes: D64.9 - Anemia, unspecified Status: stable, progressing Assessment/Plan: pt diet transfuse prn dialysis prn dc w [facility] Subjective Constitutional: Reports: weakness Allergies: Coded Allergies: No Known Allergies (Unverified , 01/23/20) All Systems: reviewed and negative except above Subjective calm insist on leaving Objective Last 24 Hour Vital Signs Date Time Temp Pulse Resp B/P (MAP) Pulse Ox O2 Delivery O2 Flow Rate FiO2 02/02/20 09:58 97.9 02/02/20 09:28 92 134/70 02/02/20 09:28 92 134/70 02/02/20 09:00 Room Air 02/02/20 08:00 97.9 92 18 134/70 (91) 98 02/02/20 05:14 148/76 02/02/20 04:00 97.6 83 18 148/76 (100) 98 02/02/20 00:00 97.8 89 19 137/71 (93) 95 02/01/20 22:00 180/89 02/01/20 21:00 Room Air 02/01/20 21:00 73 180/89 02/01/20 20:00 98.3 73 19 171/88 (115) 96 02/01/20 16:00 97.7 76 18 136/75 (95) 97 02/01/20 13:13 133/83 02/01/20 12:00 98.4 79 19 133/83 (100) 97 Intake and Output 02/01/20 02/02/20 19:00 07:00 Intake Total 840 ml Output Total 620 ml 1900 ml Balance 220 ml -1900 ml Intake Oral 840 ml Output Urine Total 620 ml 900 ml Hemodialysis UF 1000 ml # Voids 2 2 # Bowel Movements 1 Height (Feet): 5 Height (Inches): 6.00 Weight (Pounds): 152 General Appearance: alert EENT: normal ENT inspection Neck: normal alignment Cardiovascular: normal peripheral pulses, normal rate, regular rhythm Respiratory/Chest: chest wall non-tender, lungs clear, normal breath sounds Abdomen: normal bowel sounds, non tender, soft Extremities: normal inspection Edema: no edema noted Arm (L), no edema noted Arm (R), no edema noted Leg (L), no edema noted Leg (R), no edema noted Pedal (L), no edema noted Pedal (R), no edema noted Generalized Neurologic: motor weakness Skin: normal pigmentation, warm/dry Theo Powers DO Feb 02, 2020 11:34
--- NOTE | 2020-02-02 11:52 | Nephrology Progress Note ---
Assessment/Plan Problem List: (1) ESRD (end stage renal disease) on dialysis (2) Anemia (3) Hyperkalemia (4) Hypertensive kidney disease Assessment End-stage renal disease on hemodialysis via chest permacath, patient missed dialysis Presents with severe anemia and hyperkalemia Status post transfusion for anemia Status post insertion of a PICC line History of hypertension History of psych disease Plan February 01: Patient was dialyzed yesterday. Patient would like to be discharged into the streets. He refuses to go to extended care facility. Had long discussion with the patient at the presence of nurse manager of application development Lali, and I explained to the patient that he needs a referral to a dialysis unit and need to show up for dialysis 3 times a week. In that case the patient can be discharged with a permacath in place. It appears that the psychiatrist Dr. Larios finds the patient capable of making his own decisions. January 31: Patient clinically stable. Due for dialysis today. Patient has a placement in a jail with scheduled outpatient dialysis however the patient refuses to go to jail meanwhile he remains homeless. I am afraid that upon discharge he would not be able to receive his outpatient dialysis if he has no placement. Patient need clearance by psychiatry for ability to make decisions of his own. January 30: Patient clinically stable. Last dialyzed yesterday. Due for dialysis tomorrow. January 29: Lab reviewed. Hemodialysis today. Discharge planning in process. January 28: Lab reviewed. Dialyzed yesterday. Next hemodialysis tomorrow. January 27: Labs reviewed. Patient currently on dialysis. Tolerating well. Remains stable from renal standpoint to view while getting regular dialysis. Hemoglobin drifting down. Patient on Epogen. Transfusion as needed. January 26: Consultants appreciated. As per behavioral health case manager patient refuses to go to the psych unit or jail and wants to be discharged to the street. According to the psychiatrist patient does not have capacity to make rational decision. If the patient does not receive dialysis on a regular basis he is clinical condition will deteriorated with . Dialysis ordered for tomorrow. Labs to be drawn prior to initiation of dialysis tomorrow. Continue to rest of management and per consultants. Medication list reviewed. I spent an additional 36 minutes on review of medical records ,consult notes, progress notes, imaging and available labs, and other clinical documentation. Frequent conversation with the case management Anahi and Dr. Powers and RN taking care of the patient today. January 25: Patient will receive dialysis today. Is only agreeable to draw blood work prior to dialysis from the access line. Further comments after lab results available. January 24: Today's labs pending. Will order dialysis for tomorrow. Blood pressure stable. Hemodialysis for hyperkalemia, was done on January 23. Adjust blood pressure medications Plus binders Continue to monitor her hemoglobin hematocrit and blood pressure Per orders Subjective ROS Limited/Unobtainable: No Objective Objective Last 24 Hour Vital Signs Date Time Temp Pulse Resp B/P (MAP) Pulse Ox O2 Delivery O2 Flow Rate FiO2 02/02/20 09:58 97.9 02/02/20 09:28 92 134/70 02/02/20 09:28 92 134/70 02/02/20 09:00 Room Air 02/02/20 08:00 97.9 92 18 134/70 (91) 98 02/02/20 05:14 148/76 02/02/20 04:00 97.6 83 18 148/76 (100) 98 02/02/20 00:00 97.8 89 19 137/71 (93) 95 02/01/20 22:00 180/89 02/01/20 21:00 Room Air 02/01/20 21:00 73 180/89 02/01/20 20:00 98.3 73 19 171/88 (115) 96 02/01/20 16:00 97.7 76 18 136/75 (95) 97 02/01/20 13:13 133/83 02/01/20 12:00 98.4 79 19 133/83 (100) 97 Intake and Output 02/01/20 02/02/20 19:00 07:00 Intake Total 840 ml Output Total 620 ml 1900 ml Balance 220 ml -1900 ml Intake Oral 840 ml Output Urine Total 620 ml 900 ml Hemodialysis UF 1000 ml # Voids 2 2 # Bowel Movements 1 Height (Feet): 5 Height (Inches): 6.00 Weight (Pounds): 152 General Appearance: no apparent distress Objective No change Viktor Kang MD Feb 02, 2020 11:52
[2020-02-02 12:00] VITALS: BP 128/72
--- NOTE | 2020-02-02 12:02 | Infectious Diseases Prog Note ---
Assessment/Plan Assessment: fever; SP No leukocytosis -u/a no pyuria -refused blood cultures PRobable PNA- COVID neg x2 -sp cx yeast -01/27 SARS-COV2 PCR neg -01/23 CXR: Bilateral right greater than left infiltrates versus edema. Right- sided pleural thickening versus fluid -01/19 COVID test (at [facility])- reported negative Acute on chronic anemia Hyperkalemia ?report of bacteremia- I can't confirm this. at the moment, patient afebrile, no leukocytosis- no signs of infection. will obtain Bcx x2 01/22 failed attempted PICC line placement; Mid line placed instead COVID19 neg on 01/07 at [place]; a repeat test was sent on 01/20 schizophrenia ESRD on HD HTN smoker pelvic fracture s/p hip hardware placement -01/23/20 hip xray: Positive for bilateral pubic fracture, as described. Fracture lines appear acute and displaced, but presence of proliferative change may indicate a chronic component. Correlate with clinical history Plan: - Continue to monitor off abx -ok to dc off antibiotics -01/28 SP Ceftriaxone #5 -f/u cx -Monitor CBC/CMP, temperatures -COVID neg x2; ok to dc isolation -renal f/u Thank you for this consultation. Will continue to follow along with you. Discussed with RN. Subjective Allergies: Coded Allergies: No Known Allergies (Unverified , 01/23/20) afebrile at no leukocytosis discharge planning off abx Objective Last 24 Hour Vital Signs Date Time Temp Pulse Resp B/P (MAP) Pulse Ox O2 Delivery O2 Flow Rate FiO2 02/02/20 09:58 97.9 02/02/20 09:28 92 134/70 02/02/20 09:28 92 134/70 02/02/20 09:00 Room Air 02/02/20 08:00 97.9 92 18 134/70 (91) 98 02/02/20 05:14 148/76 02/02/20 04:00 97.6 83 18 148/76 (100) 98 02/02/20 00:00 97.8 89 19 137/71 (93) 95 02/01/20 22:00 180/89 02/01/20 21:00 Room Air 02/01/20 21:00 73 180/89 02/01/20 20:00 98.3 73 19 171/88 (115) 96 02/01/20 16:00 97.7 76 18 136/75 (95) 97 02/01/20 13:13 133/83 Height (Feet): 5 Height (Inches): 6.00 Weight (Pounds): 152 General Appearance: no distress EENT: normal ENT inspection Neck: normal alignment Cardiovascular: normal peripheral pulses, normal rate, regular rhythm Respiratory/Chest: chest wall non-tender, lungs clear, normal breath sounds Abdomen: normal bowel sounds, non tender, soft Extremities: normal inspection Neurologic: motor weakness Skin: normal pigmentation, warm/dry Current Medications Medications (Trade) Dose Ordered Sig/Michelle Route PRN Reason Start Time Stop Time Status Last Admin Dose Admin Amlodipine Besylate (Norvasc) 10 mg DAILY ORAL 01/28/20 09:00 02/24/20 08:59 02/02/20 09:28 Chlorhexidine Gluconate (Karley-Hex 2%) 1 applic DAILY@1999 TOPIC 01/28/20 20:00 04/22/20 19:59 02/01/20 21:15 Clonidine HCl (Catapres tab) 0.2 mg Q8HR ORAL 01/27/20 22:00 04/23/20 08:59 01/31/20 22:49 Docusate Sodium (Colace) 100 mg TIAC ORAL 01/28/20 06:30 02/23/20 08:59 01/31/20 15:32 Epoetin Pineda (Epoetin Pineda(ESRD on dialysis)) 10,000 unit THU-THU-THU SUBQ 01/30/20 21:00 04/29/20 20:59 02/01/20 21:08 Lorazepam (Ativan) 1 mg Q6H PRN ORAL For Anxiety 01/27/20 21:00 02/03/20 20:59 Magnesium Hydroxide (Mom) 30 ml HSPRN PRN ORAL Constipation 01/27/20 21:00 02/26/20 20:59 01/29/20 22:55 Metoprolol Tartrate (Lopressor) 100 mg EVERY 12 HOURS ORAL 01/27/20 21:00 04/23/20 08:59 02/02/20 09:28 Morphine Sulfate (Morphine Sulfate) 2 mg Q4H PRN IVP For Pain 6-8 01/27/20 21:00 02/03/20 20:59 02/02/20 09:28 Neomycin/ Polymyxin/ Bacitracin (Neomycin/Polymy/ Bacitr Oint) 1 applic Q8H PRN TOPIC for skin infection 01/27/20 21:00 04/26/20 20:59 Pantoprazole (Protonix) 40 mg EVERY 12 HOURS ORAL 01/27/20 21:00 02/23/20 08:59 02/02/20 09:28 Quetiapine Fumarate (SEROqueL) 100 mg TID ORAL 01/28/20 09:00 03/09/20 08:59 02/02/20 09:28 Sevelamer Carbonate (Renvela) 1,600 mg THREE TIMES A DAY ORAL 01/28/20 09:00 04/23/20 17:59 02/02/20 09:28 Zinc Sulfate (Zinc Sulfate) 220 mg DAILY ORAL 01/28/20 09:00 04/23/20 08:59 02/02/20 09:28 Michelle Morales M.D. Feb 02, 2020 12:02
--- NOTE | 2020-02-02 12:31 | General Progress Note ---
Assessment/Plan Problem List: (1) Hypertensive kidney disease ICD Codes: I12.9 - Hypertensive chronic kidney disease with stage 1 through stage 4 chronic kidney disease, or unspecified chronic kidney disease SNOMED: 64420800 (2) Anemia ICD Codes: D64.9 - Anemia, unspecified SNOMED: 609372734 Qualifiers: Qualified Codes: D64.9 - Anemia, unspecified (3) ESRD (end stage renal disease) on dialysis ICD Codes: N18.6 - End stage renal disease; Z99.2 - Dependence on renal dialysis SNOMED: 610804066 (4) Fracture, pelvis closed ICD Codes: S32.9XXA - Fracture of unspecified parts of lumbosacral spine and pelvis, initial encounter for closed fracture SNOMED: 71895419 Qualifiers: Qualified Codes: S32.89XK - Fracture of other parts of pelvis, subsequent encounter for fracture with nonunion (5) Hyperkalemia ICD Codes: E87.5 - Hyperkalemia; Z99.2 - Dependence on renal dialysis SNOMED: 85766532 (6) H/O bacteremia ICD Codes: Z87.898 - Personal history of other specified conditions SNOMED: 103469381 (7) Wrist fracture, right ICD Codes: S62.101A - Fracture of unspecified carpal bone, right wrist, initial encounter for closed fracture SNOMED: 125634459, 086721848 Qualifiers: Qualified Codes: S62.101D - Fracture of unspecified carpal bone, right wrist , subsequent encounter for fracture with routine healing (8) Schizophrenia ICD Codes: F20.9 - Schizophrenia, unspecified SNOMED: 99605369 Qualifiers: Qualified Codes: F20.9 - Schizophrenia, unspecified Status: stable, progressing Assessment/Plan: s/p one unit PRBC so far no active GIB no iron def fu stool ob>> positive HD per nephrology abx per ID GI procedures on hold for now fu cbc Subjective ROS Limited/Unobtainable: No Allergies: Coded Allergies: No Known Allergies (Unverified , 01/23/20) Subjective arm pain Objective Last 24 Hour Vital Signs Date Time Temp Pulse Resp B/P (MAP) Pulse Ox O2 Delivery O2 Flow Rate FiO2 02/02/20 12:00 97.5 86 18 128/72 (90) 95 02/02/20 09:58 97.9 02/02/20 09:28 92 134/70 02/02/20 09:28 92 134/70 02/02/20 09:00 Room Air 02/02/20 08:00 97.9 92 18 134/70 (91) 98 02/02/20 05:14 148/76 02/02/20 04:00 97.6 83 18 148/76 (100) 98 02/02/20 00:00 97.8 89 19 137/71 (93) 95 02/01/20 22:00 180/89 02/01/20 21:00 Room Air 02/01/20 21:00 73 180/89 02/01/20 20:00 98.3 73 19 171/88 (115) 96 02/01/20 16:00 97.7 76 18 136/75 (95) 97 02/01/20 13:13 133/83 Intake and Output 02/01/20 02/02/20 19:00 07:00 Intake Total 840 ml Output Total 620 ml 1900 ml Balance 220 ml -1900 ml Intake Oral 840 ml Output Urine Total 620 ml 900 ml Hemodialysis UF 1000 ml # Voids 2 2 # Bowel Movements 1 Height (Feet): 5 Height (Inches): 6.00 Weight (Pounds): 152 General Appearance: alert EENT: normal ENT inspection Neck: supple Cardiovascular: normal rate Respiratory/Chest: decreased breath sounds Abdomen: normal bowel sounds, non tender, soft Extremities: normal range of motion Edi Dhaliwal MD Feb 02, 2020 12:31
[2020-02-02 13:19] VITALS: BP 128/72
--- NOTE | 2020-02-02 13:26 | Consultation ---
History of Present Illness General Date patient seen: Feb 02, 2020 Chief Complaint: Present Illness Allergies: Coded Allergies: No Known Allergies (Unverified , 01/23/20) Medication History Scheduled Acetaminophen* (Acetaminophen 325MG Tablet*), 325 MG ORAL Q6HR, (Reported) Amlodipine Besylate* (Amlodipine Besylate*), 10 MG ORAL DAILY, (Reported) Ceftriaxone Na/Dextrose,Iso (Ceftriaxone 1 Gm Piggyback), 1 GM IV DAILY, ( Reported) Darbepoetin Pineda in Polysorbat (Aranesp), 100 MCG SUBQ ONCE A WEEK, (Reported) Docusate Sodium (Docusate Sodium), 100 MG ORAL DAILY, (Reported) Docusate Sodium* (Docusate Sodium*), 100 MG ORAL THREE TIMES A DAY, (Reported) Furosemide (Furosemide), 80 MG ORAL DAILY, (Reported) Magnesium Hydroxide (Milk of Magnesia), 30 ML ORAL DAILY, (Reported) Metoprolol Tartrate* (Metoprolol Tartrate*), 100 MG ORAL EVERY 12 HOURS, ( Reported) Neomycin/Polymyxin/Bacitracin* (Triple Antibiotic Ointment*), 30 GM TOPIC DAILY, (Reported) Quetiapine Fumarate (Seroquel), 100 MG ORAL DAILY, (Reported) Quetiapine Fumarate* (Seroquel*), 100 MG ORAL THREE TIMES A DAY, (Reported) Sevelamer Carbonate (Renvela), 800 MG ORAL THREE TIMES A DAY, (Reported) Tramadol Hcl (Tramadol Hcl), 50 MG ORAL DAILY, (Reported) Scheduled PRN Diphenhydramine Hcl* (Diphenhydramine Hcl*), 50 MG ORAL Q6H PRN for Itching, ( Reported) Miscellaneous Medications Bisacodyl (Dulcolax), 10 MG RC, (Reported) Calcium Carbonate/Vitamin D3 (Oyster Shell Calcium +D Tablet), 1 EACH PO, ( Reported) Ferrous Sulfate (Ferrous Sulfate), 325 MG ORAL, (Reported) Zinc Amino Acid Chelate (Zinc), 50 MG ORAL, (Reported) Patient History Healthcare decision maker N Resuscitation status Advanced Directive on File Physical Exam Last 24 Hour Vital Signs Date Time Temp Pulse Resp B/P (MAP) Pulse Ox O2 Delivery O2 Flow Rate FiO2 02/02/20 13:19 128/72 02/02/20 12:00 97.5 86 18 128/72 (90) 95 02/02/20 09:58 97.9 02/02/20 09:28 92 134/70 02/02/20 09:28 92 134/70 02/02/20 09:00 Room Air 02/02/20 08:00 97.9 92 18 134/70 (91) 98 02/02/20 05:14 148/76 02/02/20 04:00 97.6 83 18 148/76 (100) 98 02/02/20 00:00 97.8 89 19 137/71 (93) 95 02/01/20 22:00 180/89 02/01/20 21:00 Room Air 02/01/20 21:00 73 180/89 02/01/20 20:00 98.3 73 19 171/88 (115) 96 02/01/20 16:00 97.7 76 18 136/75 (95) 97 Intake and Output 02/01/20 02/02/20 19:00 07:00 Intake Total 840 ml Output Total 620 ml 1900 ml Balance 220 ml -1900 ml Intake Oral 840 ml Output Urine Total 620 ml 900 ml Hemodialysis UF 1000 ml # Voids 2 2 # Bowel Movements 1 Height (Feet): 5 Height (Inches): 6.00 Weight (Pounds): 152 Medications Current Medications Medications (Trade) Dose Ordered Sig/Michelle Route PRN Reason Start Time Stop Time Status Last Admin Dose Admin Amlodipine Besylate (Norvasc) 10 mg DAILY ORAL 01/28/20 09:00 02/24/20 08:59 02/02/20 09:28 Chlorhexidine Gluconate (Karley-Hex 2%) 1 applic DAILY@1999 TOPIC 01/28/20 20:00 04/22/20 19:59 02/01/20 21:15 Clonidine HCl (Catapres tab) 0.2 mg Q8HR ORAL 01/27/20 22:00 04/23/20 08:59 02/02/20 13:19 Docusate Sodium (Colace) 100 mg TIAC ORAL 01/28/20 06:30 02/23/20 08:59 01/31/20 15:32 Epoetin Pineda (Epoetin Pineda(ESRD on dialysis)) 10,000 unit THU-THU-THU SUBQ 01/30/20 21:00 04/29/20 20:59 02/01/20 21:08 Lorazepam (Ativan) 1 mg Q6H PRN ORAL For Anxiety 01/27/20 21:00 02/03/20 20:59 Magnesium Hydroxide (Mom) 30 ml HSPRN PRN ORAL Constipation 01/27/20 21:00 02/26/20 20:59 01/29/20 22:55 Metoprolol Tartrate (Lopressor) 100 mg EVERY 12 HOURS ORAL 01/27/20 21:00 04/23/20 08:59 02/02/20 09:28 Morphine Sulfate (Morphine Sulfate) 2 mg Q4H PRN IVP For Pain 6-8 01/27/20 21:00 02/03/20 20:59 02/02/20 13:20 Neomycin/ Polymyxin/ Bacitracin (Neomycin/Polymy/ Bacitr Oint) 1 applic Q8H PRN TOPIC for skin infection 01/27/20 21:00 04/26/20 20:59 Pantoprazole (Protonix) 40 mg EVERY 12 HOURS ORAL 01/27/20 21:00 02/23/20 08:59 02/02/20 09:28 Quetiapine Fumarate (SEROqueL) 100 mg TID ORAL 01/28/20 09:00 03/09/20 08:59 02/02/20 12:33 Sevelamer Carbonate (Renvela) 1,600 mg THREE TIMES A DAY ORAL 01/28/20 09:00 04/23/20 17:59 02/02/20 12:33 Zinc Sulfate (Zinc Sulfate) 220 mg DAILY ORAL 01/28/20 09:00 04/23/20 08:59 02/02/20 09:28 Assessment/Plan Assessment/Plan: (1) Pelvic pain (2) Pelvic Fracture (3) ESRD on hemodialysis seen dictated Silvino Brooke Feb 02, 2020 13:26
--- NOTE | 2020-02-02 17:00 | Consultation ---
DATE OF CONSULTATION: 02/02/2020 PAIN MANAGEMENT CONSULTATION CONSULTING PHYSICIAN: Marta Bell M.D. REFERRING PHYSICIAN: Theo Powers D.O. PHYSICIAN WELDER FITTER APPRENTICE: Hemal Pena CHIEF COMPLAINT: Pelvic pain. HISTORY OF PRESENT ILLNESS: This is a 49-year-old male who is being seen on the Med/Surg floor of [facility] for initial pain management. The patient was admitted under the care of Dr. Powers due to hyperkalemia, due to end-stage renal disease, on hemodialysis, being seen by Dr. Kang, tube and rod straightener. He has had pelvic pain due to a known pelvic fracture and was started on morphine 2 mg IV every 4 hours as needed for pain and was to be seen by an orthopedic surgeon as well. At this time, he is comfortable, tolerating the pain on the current medication of morphine, and we were consulted so the patient would have adequate pain control and discharged home as per the recycling specialist. PAST MEDICAL HISTORY: Schizophrenia, end-stage renal disease, anemia, pelvic fracture. SOCIAL HISTORY: Denies smoking tobacco, drinking alcohol, or drug abuse. ALLERGIES: No known drug allergies. MEDICATIONS: Tylenol, amlodipine, ceftriaxone, Aranesp, docusate, furosemide, metoprolol, Seroquel, Renvela, tramadol, Benadryl. REVIEW OF SYSTEMS: Denies rash, fever, chills, sweating, dizziness, drowsiness, blurred vision, sore throat, shortness of breath, or chest pain. No nausea, vomiting, diarrhea, blood in the stool or urine. No dysuria. PHYSICAL EXAMINATION: GENERAL: Alert, awake, and oriented. VITAL SIGNS: Blood pressure 128/72, heart rate 86, oxygen saturation 95%, respiratory rate 18, temperature 97.5 degrees Fahrenheit. HEENT: PERRLA. NECK: Range of motion is full in all directions. No tenderness to paracervical muscles. No adenopathy. LUNGS: Decreased breath sounds bilaterally. HEART: S1 and S2 regular. ABDOMEN: Soft and nontender. BACK: Range of motion is decreased in flexion, extension. EXTREMITIES: Bilateral upper and lower extremity range of motion is decreased due to patient's condition. No cyanosis. No clubbing. Sensory is reduced. Reflexes are not obtainable. No adenopathy. ASSESSMENT AND PLAN: This is a 49-year-old male with pelvic pain, pelvic fracture, end-stage renal disease, on hemodialysis. The patient will be continued on morphine in the hospital. A prescription for Tylenol No. 3 one tablet every 6-8 hours, 10 tablets, and Narcan nasal spray was written for patient in anticipation for discharge. The patient was advised to follow up with his primary care physician, tube and rod straightener, as well as orthopedic surgeon as an outpatient. The patient was discussed with Dr. Bell and Dr. Bell concurred. We will follow up with the patient. Thank you very much for the courtesy of this consultation. Marta Bell M.D. QUETA Pena DR: SANTA JOB#: [id number] CC:
--- NOTE | 2020-02-02 17:30 | Progress Note ---
DATE: 02/02/2020 SUBJECTIVE: This is a 49-year-old male with hyperkalemia. This is a male patient who is confused with wrist fracture, bacteremia, hyperkalemia, end-stage renal disease on hemodialysis, anemia, hypertensive renal disease, but he has got decline in cognition below his baseline, altered mental status. That is why, his attending has requested daily psychiatric consultation. MENTAL STATUS EXAMINATION: This is a 49-year-old male. Appearance is disheveled. Attitude, irritable and agitated. Affect, guarded and restricted. Intellect poor. Mood, depressed and anxious. Motor activity, psychomotor agitation. Attention span is poor. Orientation x2. Speech is low volume, slurred. Thought process, disorganized and illogical. Insight and judgment is poor. DIAGNOSIS: Paranoid schizophrenia with acute exacerbation. PLAN: Plan is to treat with Seroquel 100 mg 3 times a day. Twenty minutes of cognitive behavioral therapy provided to help him identify his automatic negative thoughts, help him convert his negative thoughts to more positive thoughts to reduce depression, anxiety, and mood lability. Twenty minutes of reality-based supportive psychotherapy provided. Chart reviewed. Discussed with staff. Seen and assessed at bedside. Maura Larios M.D. DR: AXEL JOB#: [id number] CC:
--- NOTE | 2020-02-02 18:38 | Hematology/Onc Progress Note ---
Assessment/Plan Assessment/Plan # Anemia of chronic disease due to underlying chronic medical issues, multifactorial v Gi bleed --> Anemia workup has been ordered, rule out gi bleed --> No evidence of hemolysis is noted, peripheral smear has been reviewed. --> Hgb goal >7. Transfuse prn. --> Epogen started given esrd --> Medications have been reviewed --> low threshold for gi evaluation in case has occult + --> bone marrow biopsy is not indicated given the other more likely causes -> hgb trend 7.2-->8.3 --> s/p one unit PRBC 01/29 # ESRD on hd --> as per renal --> with permacath noted right chest # Hyperkalemia -> adjustment per renal # Status post insertion of a PICC line # History of hypertension # History of psych disease The timing of this note does not necessarily reflect the time of the patient was seen. Greatly appreciate consultation. Subjective Allergies: Coded Allergies: No Known Allergies (Unverified , 01/23/20) Subjective 01/30 with permacath, refusing dc to snf, labs refused this am as well 01/31 labs are noted, no bleeding, meds reviewed, no hemolysis 02/01 no events, awake and alert, dc planning Objective Objective Last 24 Hour Vital Signs Date Time Temp Pulse Resp B/P (MAP) Pulse Ox O2 Delivery O2 Flow Rate FiO2 02/02/20 13:50 97.5 02/02/20 13:19 128/72 02/02/20 12:00 97.5 86 18 128/72 (90) 95 02/02/20 09:28 92 134/70 02/02/20 09:28 92 134/70 02/02/20 09:00 Room Air 02/02/20 08:00 97.9 92 18 134/70 (91) 98 02/02/20 05:14 148/76 02/02/20 04:00 97.6 83 18 148/76 (100) 98 02/02/20 00:00 97.8 89 19 137/71 (93) 95 02/01/20 22:00 180/89 02/01/20 21:00 Room Air 02/01/20 21:00 73 180/89 02/01/20 20:00 98.3 73 19 171/88 (115) 96 02/01/20 16:00 97.7 76 18 136/75 (95) 97 02/01/20 13:13 133/83 02/01/20 12:00 98.4 79 19 133/83 (100) 97 02/01/20 09:00 Room Air 02/01/20 08:36 75 130/74 02/01/20 08:36 75 130/74 02/01/20 08:00 97.5 75 19 130/74 (92) 99 02/01/20 04:00 97.8 73 18 120/68 (85) 97 02/01/20 00:00 96.8 79 18 134/73 (93) 99 01/31/20 22:49 131/70 01/31/20 21:00 Room Air 01/31/20 20:45 80 137/74 01/31/20 20:00 97.7 77 18 137/74 (95) 98 Intake and Output 02/01/20 02/02/20 19:00 07:00 Intake Total 840 ml Output Total 620 ml 1900 ml Balance 220 ml -1900 ml Intake Oral 840 ml Output Urine Total 620 ml 900 ml Hemodialysis UF 1000 ml # Voids 2 2 # Bowel Movements 1 Height (Feet): 5 Height (Inches): 6.00 Weight (Pounds): 152 Objective Physical Exam: Vitals: reviewed General: NAD HEENT: nc, at, Right chest permacath Neck: supple Chest: clear breath sounds bilaterally Cardiovascular: RRR, no s3, s4 Abdomen: soft, nontender, nd Extremities: no cce, normal range of motion Neuro: alert and oriented Junior Jimenez MD Feb 02, 2020 18:37
--- NOTE | 2020-02-06 13:48 | Discharge Summary ---
Discharge Summary Discharge Summary _ DATE OF ADMISSION: 01/23/2020 DATE OF DISCHARGE: 02/02/2020 DISCHARGED BY: Dr Powers REASON FOR ADMISSION: 49 years old male with past medical history of ESRD, on hemodialysis, hypertension, schizophrenia, anemia, was sent for PICC line insertion. Review of records revealed that he had bacteremia. Patient apparently skipped dialysis as well. Upon evaluation pulse oximetry was 93% on room air. Laboratory work-up revealed no leukocytosis, hemoglobin 6.8 ,hematocrit 21.3 , platelet count 251. Potassium 6.0. BUN 105, creatinine 7.7. Glucose 96. AST 14 , ALT 11 , albumin 1.6 . EKG revealed sinus rhythm , no acute ischemic changes Chest x-ray revealed no pleural effusion, no pneumothorax . X-ray of the right forearm revealed soft tissue swelling and old fracture. No dislocation. X-ray of the right hip and pelvis revealed no soft tissue swelling. Patient had attempted PICC line placement by radiologist but unable to do so, and instead a midline was placed. Patient admitted for hyperkalemia and anemia. Patient typed and crossed , hyperkalemia was treated Patient admitted to the hospital for further management. CONSULTANTS: ID specialist Dr. Morales GI specialist Dr. Dhaliwal flume worker Dr. Kang pain specialist Dr. Bell paedodontist Dr. Jimenze HOSPITAL COURSE: Patient admitted. and was transfused with 2 units of packed red blood cells Epogen provided. Anemia work-up was consistent with anemia of chronic disease. Stool for occult blood was positive. Prior to discharge hemoglobin 8.3, hematocrit 26.4. Patient developed fevers, no leukocytosis. Chest x-ray revealed bilateral, right greater than left , infiltrates versus edema. Urinalysis revealed no evidence of UTI , +4 protein. Per ID, patient probably had pneumonia. COVID-19 at the facility was negative , repeated SARS COV 2 by PCR 01/27 was negative as well. Sputum culture revealed yeast. Patient was treated empirically for pneumonia, status post treatment. ID specialist recommended to monitor patient off antibiotics. Isolation was discontinued. There was a history of reported bacteremia , however it could not be confirmed Patient remained afebrile, no leukocytosis, no signs of infection GI specialist seen and evaluated patient. No evidence of active GI bleeding. GI specialist recommended keep GI procedure on hold for now and follow-up with hemoglobin and hematocrit. GI prophylaxis provided. Pain management was addressed as as needed. Psychiatric medication regimen was optimized. Psychiatry deemed patient capable of making informed decision. Patient declined SNF placement. Hemodialysis was arranged with the [facility] hemodialysis center , located in [place]. Midline was removed. Patient was discharged with a right-sided PermCath covered with dressing. The treating physician and all consultants assessed and agreed that patient was medically stable for discharge to an outpatient disposition. FINAL DIAGNOSES: End-stage renal disease , on hemodialysis Hyperkalemia Acute on chronic anemia Hypertensive kidney disease Anemia of chronic kidney disease Probable pneumonia Suspected COVID-19 -ruled out Smoker History of pelvic fracture , status post hip hardware placement Pelvic pain Paranoid schizophrenia with acute exacerbation DISCHARGE MEDICATIONS: See Medication Reconciliation list. DISCHARGE INSTRUCTIONS: Patient was discharged to outside disposition. Follow-up with a primary care provider in 1 week. I have been assigned to dictate discharge summary for this account. I was not involved in the patient's management. Alla Lowery NP Feb 06, 2020 13:48
== END 2020-02-02 14:59 | disposition home or self-care (01) | DRG 640 ==
LOC: EDBD 14:32 → EMR 16:00 → 2E 18:26 → EDBEDREQ 20:44 → 4E 01-27 20:54
PROC: 02HV33Z Insertion of Infusion Device into Superior Vena Cava, Percutaneous Approach (ICD-10-PCS; principal; 2020-01-23)
DX: E87.5 Hyperkalemia (principal); J18.9 Pneumonia, unspecified organism; N18.6 End stage renal disease; I13.11 Hypertensive heart and chronic kidney disease without heart failure, with stage 5 chronic kidney disease, or end stage renal disease; F20.0 Paranoid schizophrenia; D63.8 Anemia in other chronic diseases classified elsewhere; F17.200 Nicotine dependence, unspecified, uncomplicated; S62.101D Fracture of unspecified carpal bone, right wrist, subsequent encounter for fracture with routine healing; S32.9XXD Fracture of unspecified parts of lumbosacral spine and pelvis, subsequent encounter for fracture with routine healing; Z99.2 Dependence on renal dialysis; Z20.828 Contact with and (suspected) exposure to other viral communicable diseases; Z91.15 Patient's noncompliance with renal dialysis
CPT/HCPCS: 36415; 36569; 71045; 76937; 80048; 80053; 80061; 80076; 81003; 82270; 82607; 82728; 82746; 83540; 83550; 83735; 84100; 84484; 84550; 85007; 85025; 86706; 86850; 86900; 86901; 86920; 87070; 87205; 93005; 96374; 96375; 99291